=== PATIENT | male | born 1955 | race Caucasian/White ===

== ENCOUNTER 2016-10-12 11:50 | Inpatient (IN) | payer BC, MEDICARE ==
[2016-10-12] MEDS ORDERED: SODIUM CHLORIDE 0.9% 1,000 ML IV STA (12:04)
[2016-10-12] MEDS ORDERED: ONDANSETRON 4 MG/2 ML VIAL IVP STA (12:04)
[2016-10-12] MEDS ORDERED: HYDROmorphone 1 MG/ML 1 ML SYRINGE IVP STA ×2 (12:04→12:52)
--- NOTE | 2016-10-12 12:06 | ED ---
General Adult HPI - General Source: patient, RN notes reviewed Mode of arrival: wheelchair Limitations: no limitations <Harpreet Chatterjee - Last Filed: 10/12/16 14:30> <Jared David - Last Filed: 10/12/16 14:53> - General Chief complaint: Abdominal Pain Stated complaint: ACUTE ABDOMINAL PAIN, LL SIDE, NAUSEA Time Seen by Provider: 10/12/16 12:00 - History of Present Illness Initial comments: Patient is a 61-year-old male significant past medical history for diverticulitis, who presents emergency room today with chief complaint of increased left lower quadrant pain starting early this morning. Patient admits to symptoms of nausea vomiting. Denies any flatulence today.Please use medication as discussed. Please follow-up with family doctor in the next 2 days of symptoms have not improved. Please return to emergency room if the symptoms increase or worsen or for any other concerns. Admits to symptoms remind him of a diverticulitis flare that he had in the past. He admits to diarrhea yesterday. Patient denies any other complaints or symptoms. Patient denies any recent fever, chills, shortness of breath, chest pain, back pain, numbness or tingling, dysuria or hematuria, constipation, headaches or visual changes, or any other complaints. (Harpreet Chatterjee) - Related Data Home Medications Medication Instructions Recorded Confirmed ALPRAZolam [Xanax] 1 mg PO TID PRN 02/29/16 10/12/16 Atenolol [Tenormin] 50 mg PO DAILY 02/29/16 10/12/16 HYDROcodone/APAP 10-325MG [[place] 1 tab PO TID PRN 02/29/16 10/12/16 10-325] Ibuprofen [Motrin] 200 - 400 mg PO Q6HR PRN 10/12/16 10/12/16 Allergies Allergy/AdvReac Type Severity Reaction Status Date / Time No Known Allergies Allergy Verified 10/12/16 12:59 Review of Systems ROS Other: All systems not noted in ROS Statement are negative. <Harpreet Chatterjee - Last Filed: 10/12/16 14:30> ROS Other: All systems not noted in ROS Statement are negative. <Jared David - Last Filed: 10/12/16 14:53> ROS Statement: Those systems with pertinent positive or pertinent negative responses have been documented in the HPI. Past Medical History Past Medical History: Hypertension Additional Past Medical History / Comment(s): chronic pain due to orthopedic problems, ddd History of Any Multi-Drug Resistant Organisms: None Reported Past Surgical History: Hernia Repair, Orthopedic Surgery Additional Past Surgical History / Comment(s): 3 right and two left shoulder surgeries Past Psychological History: No Psychological Hx Reported, Anxiety Smoking Status: Former smoker Past Alcohol Use History: Occasional Past Drug Use History: None Reported, Marijuana <Harpreet Chatterjee - Last Filed: 10/12/16 14:30> General Exam Limitations: no limitations <Harpreet Chatterjee - Last Filed: 10/12/16 14:30> <Jared David - Last Filed: 10/12/16 14:53> - General Exam Comments Initial Comments: General: The patient is awake and alert, moderate distress. Eye: Pupils are equal, round and reactive to light, extra-ocular movements are intact. No nystagmus. There is normal conjunctiva bilaterally. No signs of icterus. Ears, nose, mouth and throat: There are moist mucous membranes and no oral lesions. Neck: The neck is supple, there is no tenderness or JVD. Cardiovascular: There is a regular rate and rhythm. No murmur, rub or gallop is appreciated. Respiratory: Lungs are clear to auscultation, respirations are non-labored, breath sounds are equal. No wheezes, stridor, rales, or rhonchi. Gastrointestinal: Normal appearance. Normal bowel sounds. Abdomen soft on palpation. Patient does have increased tenderness both on the abdomen greatest in left lower quadrant. No rebound tenderness. No guarding. No CVA tenderness. Musculoskeletal: Normal ROM, no tenderness. Strength 5/5. Sensation intact. Pulses equal bilaterally 2+. Neurological: A&O x 3. CN II-XII intact, There are no obvious motor or sensory deficits. Coordination appears grossly intact. Speech is normal. Skin: Skin is warm and dry and no rashes or lesions are noted. Psychiatric: Cooperative, appropriate mood & affect, normal judgment. (Harpreet Chatterjee) Medical Decision Making - Lab Data Result diagrams: 10/12/16 12:15 10/12/16 12:15 <Harpreet Chatterjee - Last Filed: 10/12/16 14:30> - Lab Data Result diagrams: 10/12/16 12:15 10/12/16 12:15 <Jared David - Last Filed: 10/12/16 14:53> - Medical Decision Making Patient reexamined at this time still having discomfort. Patient's CT does show evidence for possible recently passed stone. Patient urinalysis shows large amount blood with 59 white cells. An back to Rocephin 2 g started here in emergency room. Patient's had multiplemedication with little relief. Vital stable. No fever. Patient will be admitted for observation. (Harpreet Chatterjee) Dr. Kebede was notified of the request for consultation from urology. Dr. David (Jared David) - Lab Data Lab Results 10/12/16 10/12/16 10/12/16 Range/Units 12:15 12:15 12:15 WBC 9.9 (3.8-10.6) k/uL RBC 5.86 (4.30-5.90) m/uL Hgb 17.9 H (13.0-17.5) gm/dL Hct 50.8 (39.0-53.0) % MCV 86.6 (80.0-100.0) fL MCH 30.5 (25.0-35.0) pg MCHC 35.2 (31.0-37.0) g/dL RDW 14.3 (11.5-15.5) % Plt Count 228 (150-450) k/uL Neutrophils % 80 % Lymphocytes % 13 % Monocytes % 4 % Eosinophils % 0 % Basophils % 1 % Neutrophils # 7.9 H (1.3-7.7) k/uL Lymphocytes # 1.3 (1.0-4.8) k/uL Monocytes # 0.4 (0-1.0) k/uL Eosinophils # 0.0 (0-0.7) k/uL Basophils # 0.1 (0-0.2) k/uL Sodium 146 H (137-145) mmol/L Potassium 4.2 (3.5-5.1) mmol/L Chloride 112 H (98-107) mmol/L Carbon Dioxide 17 L (22-30) mmol/L Anion Gap 17 mmol/L BUN 15 (9-20) mg/dL Creatinine 1.00 (0.66-1.25) mg/dL Est GFR (MDRD) Af Amer >60 (>60 ml/min/1.73 sqM) Est GFR (MDRD) Non-Af >60 (>60 ml/min/1.73 sqM) Glucose 111 H (74-99) mg/dL Plasma Lactic Acid Alberto 5.3 H* (0.7-2.0) mmol/L Calcium 9.5 (8.4-10.2) mg/dL Total Bilirubin 0.5 (0.2-1.3) mg/dL AST 24 (17-59) U/L ALT 51 (21-72) U/L Alkaline Phosphatase 78 (38-126) U/L Total Protein 7.0 (6.3-8.2) g/dL Albumin 4.2 (3.5-5.0) g/dL Amylase 53 (30-110) U/L Lipase 44 (23-300) U/L Urine Color Urine Appearance (Clear) Urine pH (5.0-8.0) Ur Specific Kimball (1.001-1.035) Urine Protein (Negative) Urine Glucose (UA) (Negative) Urine Ketones (Negative) Urine Blood (Negative) Urine Nitrate (Negative) Urine Bilirubin (Negative) Urine Urobilinogen (<2.0) mg/dL Ur Leukocyte Esterase (Negative) Urine RBC (0-5) /hpf Urine WBC (0-5) /hpf Urine Mucus (None) /hpf 10/12/16 Range/Units 13:12 WBC (3.8-10.6) k/uL RBC (4.30-5.90) m/uL Hgb (13.0-17.5) gm/dL Hct (39.0-53.0) % MCV (80.0-100.0) fL MCH (25.0-35.0) pg MCHC (31.0-37.0) g/dL RDW (11.5-15.5) % Plt Count (150-450) k/uL Neutrophils % % Lymphocytes % % Monocytes % % Eosinophils % % Basophils % % Neutrophils # (1.3-7.7) k/uL Lymphocytes # (1.0-4.8) k/uL Monocytes # (0-1.0) k/uL Eosinophils # (0-0.7) k/uL Basophils # (0-0.2) k/uL Sodium (137-145) mmol/L Potassium (3.5-5.1) mmol/L Chloride (98-107) mmol/L Carbon Dioxide (22-30) mmol/L Anion Gap mmol/L BUN (9-20) mg/dL Creatinine (0.66-1.25) mg/dL Est GFR (MDRD) Af Amer (>60 ml/min/1.73 sqM) Est GFR (MDRD) Non-Af (>60 ml/min/1.73 sqM) Glucose (74-99) mg/dL Plasma Lactic Acid Alberto (0.7-2.0) mmol/L Calcium (8.4-10.2) mg/dL Total Bilirubin (0.2-1.3) mg/dL AST (17-59) U/L ALT (21-72) U/L Alkaline Phosphatase (38-126) U/L Total Protein (6.3-8.2) g/dL Albumin (3.5-5.0) g/dL Amylase (30-110) U/L Lipase (23-300) U/L Urine Color Dark Brown Urine Appearance Turbid (Clear) Urine pH 5.5 (5.0-8.0) Ur Specific Kimball 1.016 (1.001-1.035) Urine Protein 2+ H (Negative) Urine Glucose (UA) Negative (Negative) Urine Ketones Trace H (Negative) Urine Blood Moderate H (Negative) Urine Nitrate Negative (Negative) Urine Bilirubin Negative (Negative) Urine Urobilinogen <2.0 (<2.0) mg/dL Ur Leukocyte Esterase Small H (Negative) Urine RBC >182 H (0-5) /hpf Urine WBC 59 H (0-5) /hpf Urine Mucus Few H (None) /hpf Disposition Time of Disposition: 14:31 <Harpreet Chatterjee - Last Filed: 10/12/16 14:30> <Jared David - Last Filed: 10/12/16 14:53> Clinical Impression: Renal colic, UTI (urinary tract infection), Hematuria Disposition: ADMITTED IP TO THIS [facility] Condition: Stable Referrals: Delonte Catherine DO [Primary Care Provider] - 1-2 days
[2016-10-12] MEDS: SODIUM CHLORIDE 0.9% 1,000 ML IV STA ×2 (12:19→20:19)
--- NOTE | 2016-10-12 12:41 | XR ---
EXAMINATION TYPE: XR KUB DATE OF EXAM: 10/12/2016 12:39 PM COMPARISON: NONE HISTORY: Pain TECHNIQUE: Single supine KUB image of the abdomen is obtained FINDINGS: Small bowel demonstrates no evidence for dilatation or air fluid levels. Gas and fecal material is seen in non-distended colon. No convincing evidence for pneumoperitoneum. No unusual calcifications. The lung bases are clear. The osseous structures are intact. IMPRESSION: 1. Overall nonobstructive bowel gas pattern.
[2016-10-12 12:43] LABS: Basophils # (A) 0.1 k/uL (0-0.2); Basophils % (A) 1 %; CH 31.3; CHCM 36.3; Eosinophils % (A) 0 %; HCT 50.8 % (39.0-53.0); HGB 17.9 gm/dL (13.0-17.5); Luc # (Auto) 0.22; Luc % (Auto) 2; Lymphocytes # (A) 1.3 k/uL (1.0-4.8); Lymphocytes % (A) 13 %; MCH 30.5 pg (25.0-35.0); MCHC 35.2 g/dL (31.0-37.0); MCV 86.6 fL (80.0-100.0); Mean Platelet Volume 7.4; Monocytes # (A) 0.4 k/uL (0-1.0); Monocytes % (A) 4 %; Neutrophils # (A) 7.9 k/uL (1.3-7.7); Neutrophils % (A) 80 %; RBC 5.86 m/uL (4.30-5.90); RDW 14.3 % (11.5-15.5); WBC 9.9 k/uL (3.8-10.6); WBC (Perox) 9.23
[2016-10-12 12:48] LABS: ALT 51 U/L (21-72); AST 24 U/L (17-59); Alkaline Phosphatase 78 U/L (38-126); Amylase 53 U/L (30-110); Anion Gap 17 mmol/L; Blood Urea Nitrogen 15 mg/dL (9-20); Calcium 9.5 mg/dL (8.4-10.2); Carbon Dioxide 17 mmol/L (22-30); Chloride 112 mmol/L (98-107); Glucose 111 mg/dL (74-99); Non-African American GFR(MDRD) >60 (>60 ml/min/1.73 sqM); Potassium 4.2 mmol/L (3.5-5.1); Sodium 146 mmol/L (137-145); Total Bilirubin 0.5 mg/dL (0.2-1.3)
[2016-10-12 13:28] LABS: Appearance,Urine Turbid (Clear); Bilirubin,Urine Negative (Negative); Glucose,Urine (UA) Negative (Negative); Ketones,Urine Trace (Negative); Leukocyte Esterase,Urine Small (Negative); Mucus,Urine Few /hpf; Nitrite,Urine Negative (Negative); PH, Urine 5.5 (5.0-8.0); Particle Count 77724; Protein,Urine 2+ (Negative); RBC,Urine >182 /hpf (0-5); Specific Gravity,Urine 1.016 (1.001-1.035); UA Billing (MACRO vs. MICRO) MICRO; Urobilinogen,Urine <2.0 mg/dL (<2.0); WBC,Urine 59 /hpf (0-5)
[2016-10-12] MEDS ORDERED: cefTRIAXone 2,000 MG in SODIUM CHLORIDE 0.9% 100 ML IVPB STA (13:31)
--- NOTE | 2016-10-12 13:48 | CT ---
EXAMINATION TYPE: CT abdomen pelvis wo con DATE OF EXAM: 10/12/2016 1:33 PM COMPARISON: NONE INDICATION: Lt sided pain DLP: 1033.5 mGycm, Automated exposure control for dose reduction was used. CONTRAST: None Study performed without Oral Contrast TECHNIQUE: Axial images were obtained from above the diaphragm to the pubic rami in the axial plane a t 5 mm thick sections. Reconstructed images are reviewed on the computer in the coronal plane. FINDINGS: Limited CT sections are obtained the lung bases. The lung bases are clear. CT ABDOMEN: Liver: There are scattered hypodensities within the liver compatible with hepatic cyst. Its superior medial right lobe liver this measures 1.5 cm and 18 Hounsfield units. Within the more lateral upper r ight lobe liver this measures 0.9 cm 19 Hounsfield units. It may be a cyst within the medial right lo be liver midportion as well as probable cyst adjacent to the gallbladder bed fossa posterior right lo be liver and in the subcortical region, right lower lobe. This right lower lobe cyst would measure 2. 1 cm and 9 Hounsfield units. Subcutaneous nodule is at the anterolateral right subcutaneous tissue me asuring 1.3 cm in depth. Series 3 image 29 Spleen: Normal Pancreas: Normal Adrenal glands: The adrenal glands are normal. Gallbladder: Normal Kidneys: No masses are evident. No hydronephrosis is present. No cysts are present. No renal stone s are identified. There is mild left hydroureter and minimal prominence of the left renal collecting system. A recent passage of a stone could have this appearance. No discrete left renal or ureteral st ones are evident at this time. Aorta: Vascular calcification is within the aorta. Inferior vena cava: Normal. CT PELVIS: Loops of bowel within the abdomen and pelvis are normal. Appendix: Normal as visualized. Urinary bladder: Decompressed limiting evaluation. No suspicious abnormality is identified. Genitourinary structures: Prostate is slightly prominent Osseous structures: No suspicious lytic or sclerotic lesions. IMPRESSIONS: 1. Slight prominence of the left renal collecting system and left ureter. No discrete renal or urete ral stone is evident. Recent passage of a ureteral stone could have this appearance. 2. Hepatic cysts.
[2016-10-12] MEDS ORDERED: KETOROLAC 30 MG/ML 1 ML VIAL IVP STA (14:10)
[2016-10-12] MEDS ORDERED: NALOXONE 0.4 MG/ML 1 ML VIAL IV PRN (14:35)
[2016-10-12] MEDS ORDERED: ACETAMINOPHEN TAB 325 MG TAB PO PRN (14:35)
[2016-10-12] MEDS ORDERED: ONDANSETRON 4 MG/2 ML VIAL IVP PRN (14:35)
[2016-10-12] MEDS ORDERED: SODIUM CHLORIDE 0.9% 1,000 ML IV ONE (14:35)
[2016-10-12] MEDS: HYDROmorphone 1 MG/ML 1 ML SYRINGE IV PRN ×3 (17:31→23:38)
[2016-10-12] MEDS: KETOROLAC 30 MG/ML 1 ML VIAL IVP PRN ×2 (17:31→23:41)
[2016-10-13] MEDS: ALPRAZolam 0.5 MG TAB PO PRN ×2 (01:38→22:24)
[2016-10-13] MEDS: KETOROLAC 30 MG/ML 1 ML VIAL IVP PRN ×3 (06:56→22:20)
[2016-10-13] MEDS: HYDROmorphone 1 MG/ML 1 ML SYRINGE IV PRN ×4 (06:56→19:35)
[2016-10-13 09:18] LABS: ALT 32 U/L (21-72); AST 16 U/L (17-59); Alkaline Phosphatase 55 U/L (38-126); Anion Gap 6 mmol/L; Blood Urea Nitrogen 17 mg/dL (9-20); Calcium 7.8 mg/dL (8.4-10.2); Carbon Dioxide 24 mmol/L (22-30); Chloride 111 mmol/L (98-107); Glucose 100 mg/dL (74-99); Non-African American GFR(MDRD) >60 (>60 ml/min/1.73 sqM); Potassium 3.8 mmol/L (3.5-5.1); Sodium 141 mmol/L (137-145); Total Bilirubin 0.9 mg/dL (0.2-1.3); Total Protein 5.4 g/dL (6.3-8.2)
[2016-10-13 09:19] LABS: Basophils % (A) 0 %; CH 31.1; CHCM 34.6; Eosinophils % (A) 0 %; HCT 42.2 % (39.0-53.0); HDW 2.84; Luc # (Auto) 0.16; Luc % (Auto) 2; Lymphocytes # (A) 1.2 k/uL (1.0-4.8); Lymphocytes % (A) 14 %; MCH 29.8 pg (25.0-35.0); MCHC 33.1 g/dL (31.0-37.0); MCV 90.3 fL (80.0-100.0); Mean Platelet Volume 6.8; Monocytes # (A) 0.7 k/uL (0-1.0); Monocytes % (A) 8 %; Neutrophils # (A) 6.8 k/uL (1.3-7.7); Neutrophils % (A) 76 %; RBC 4.67 m/uL (4.30-5.90); RDW 14.3 % (11.5-15.5); WBC 8.9 k/uL (3.8-10.6); WBC (Perox) 9.41
[2016-10-13 09:20] LABS: HGB 13.9 gm/dL (13.0-17.5)
--- NOTE | 2016-10-13 10:03 | P.GSCN ---
History of Present Illness History of present illness: This 61 yo gentleman came to the hospital with abdominal, llq pain. He was found to have infected looking urine and grossly bloody urine. Act scan showed a mildly dilated system. He was slightly acidotic upon admission. He was brought into the hospital, cultured, given IV antibiotics IV fluids and pain medicine. This pain began abruptly yesterday. He had something like this several years ago. He has had no real voiding problems but does have some pain down in the perineal region. There is no radiation of the pain into the flank. His white blood cell count is down today. He has less acidotic today. His urine has cleared. There is no history kidney stones, urinary infections. He is not had major constipation or diarrhea as of late. Review of Systems - Constitutional Reports chills - Gastrointestinal Reports abdominal pain - Genitourinary Reports as per HPI Past Medical History Past Medical History: Hypertension, Osteoarthritis (OA) Additional Past Medical History / Comment(s): chronic pain due to orthopedic problems, ddd, BULGING DISC,BENIGN COLON POLYP, COLITS WHEN YOUNGER, USED TO TAKE MEDS FOR CHOLESTEROL-NONE NOW."OCC HEARTBURN-TAKES TUMS" History of Any Multi-Drug Resistant Organisms: None Reported Past Surgical History: Hernia Repair, Orthopedic Surgery Additional Past Surgical History / Comment(s): 3 right and 3left shoulder surgeries. EGD/COLONOSCOPY, 3 SX LT ANKLE-PLATE AND SCREW, 2ND SX TO REMOVED HEARD WEAR, 3RD SX FOR NEUROMA. HEMORRHOIDS, FISTUAL REPAIR Past Anesthesia/Blood Transfusion Reactions: No Reported Reaction Past Psychological History: Anxiety Additional Psychological History / Comment(s): PT LIVES WITH HIS IN [facility]- HAS 2 INDOOR CATS. PT IS ON DISABLITY. USED TO WORK AT [employer].. NO SERVICED. NO OUTSIDE SERVICES. NO HOSPTIAL EQUIPMENT AT HOME. Smoking Status: Former smoker Past Alcohol Use History: Rare Additional Past Alcohol Use History / Comment(s): STARTED SMOKING 1972,QUIT 1997 , WAS SMOKING 1 PPD Past Drug Use History: Marijuana Additional Drug Use History / Comment(s): PAST MARIJUANA USE-NONE IN PAST 10 YEARS. - Past Family History Father Family Medical History: No Reported History Mother History Unknown: Yes Medications and Allergies Home Medications Medication Instructions Recorded Confirmed Type ALPRAZolam [Xanax] 1 mg PO TID PRN 02/29/16 10/12/16 History Atenolol [Tenormin] 50 mg PO DAILY 02/29/16 10/12/16 History HYDROcodone/APAP 10-325MG [[place] 1 tab PO TID PRN 02/29/16 10/12/16 History 10-325] Ibuprofen [Motrin] 200 - 400 mg PO Q6HR PRN 10/12/16 10/12/16 History Allergies Allergy/AdvReac Type Severity Reaction Status Date / Time No Known Allergies Allergy Verified 10/12/16 12:59 Surgical - Exam Vital Signs Temp Pulse Resp BP Pulse Ox 98 F 100 20 160/96 98 10/12/16 11:55 10/12/16 11:55 10/12/16 11:55 10/12/16 11:55 10/12/16 11:55 - General well developed, well nourished, moderate distress - Eyes PERRL - ENT no hearing loss - Neck no masses, trachea midline - Respiratory normal expansion, normal respiratory effort - Cardiovascular Rhythm: regular - Abdomen Abdomen: soft, non tender - Genitourinary The prostate is 20-30 g soft and benign. There is no significant inflammation or tenderness. normal penis with no external lesions, testicles present - Integumentary no rash, no growths - Neurologic normal coordination, normal sensation - Musculoskeletal normal gait, normal posture - Psychiatric oriented to time, oriented to person, oriented to place, speech is normal, memory intact Results - Labs 10/13/16 08:32 10/13/16 08:32 Abnormal Lab Results - Last 24 Hours (Table) 10/12/16 Range/Units 15:45 Plasma Lactic Acid Alberto 2.4 H* (0.7-2.0) mmol/L Assessment and Plan Plan: Impression: Left lower quadrant pain. Gross hematuria. Abnormal urinalysis consistent with urine infection. Abnormal computed tomography scan consistent with inflammation and/or recent stone passage. Chronic disability due to orthopedic issues. Recommendations: I'm not totally certain as to the exact cause of this patient' s discomfort. Obviously the possibilities include diverticulitis, prostatitis, stone passage, pyelonephritis. The fact that he is still having pain today make stone passage less probable as there are no other stones on x-ray. He does not give any historical signs of colovesical fistula which is always a concern. The lack of urinary symptoms other than the blood go against prostatitis however it indeed could be the cause. At present I do not think any surgical intervention is required. I agree with the IV fluids, IV antibiotics and pending cultures. From a urologic standpoint he can eat.
[2016-10-13] MEDS: ATENOLOL 50 MG TAB PO SCH (16:29)
[2016-10-13] MEDS: SODIUM CHLORIDE 0.9% 1,000 ML IV SCH (16:30)
--- NOTE | 2016-10-13 17:02 | HP ---
DATE OF ADMISSION: 10/12/2016 Patient is a 61-year-old who came in with complaints of upper abdominal pain in the left lower quadrant in the left flank area, radiating to the anterior groin area and patient urine looked dark and patient did have significant hematuria, although no kidney stone was appreciated on the CT of the abdomen. Patient was evaluated by Dr. Kj Overton. The patient continues to have this pain although the CT was read as post renal stone changes. The patient does not have any diverticulitis either. Patient denied any fever, chills and patient was given IV antibiotics in the ER although patient does not have any fever. Patient's pain is cramping sensation, mostly 10/10 in severity. Patient is still complaining of that pain. The patient was complaining of some discomfort in the genital area without any dysuria. No leukocytosis was appreciated. REVIEW OF SYSTEMS: CONSTITUTIONAL: No fever, no malaise, no fatigue. HEENT: No recent visual problems or hearing problems. Denied any sore throat. CARDIOVASCULAR: No chest pain, orthopnea, PND, no palpitations, no syncope. PULMONARY: No shortness of breath, no cough, no hemoptysis. GASTROINTESTINAL: as described in HPI. NEUROLOGICAL: No headaches, no weakness, no numbness. HEMATOLOGICAL: Denies any bleeding or petechiae. GENITOURINARY: as described in HPI. MUSCULOSKELETAL/RHEUMATOLOGICAL: Denies any joint pain, swelling, or any muscle pain. ENDOCRINE: Denies any polyuria or polydipsia. The rest of the 14 point review of systems is negative. Past Medical history significant for hypertension, osteoarthritis, chronic pain and gastroesophageal reflux disease, hernia repair, orthopedic surgery in the past, EGDs in the past. SOCIAL HISTORY: A former smoker, quit smoking in 1997. Denied any alcohol abuse. Occasional use of marijuana. FAMILY HISTORY: None available at this point of time. Home medications include: 1. Alprazolam. 2. Atenolol. 3. Hydrocodone acetaminophen. 4. Ibuprofen. ALLERGIES: No known drug allergies. PHYSICAL EXAMINATION: Temperature 97.0, pulse 79, respiratory rate of 16, blood pressure 115/56, saturating at 96% on room air. GENERAL: The patient is alert and oriented x3, not in any acute distress. Well developed, well nourished. HEENT: Pupils are round and equally reacting to light. EOMI. No scleral icterus. No conjunctival pallor. Normocephalic, atraumatic. No pharyngeal erythema. No thyromegaly. CARDIOVASCULAR: S1 and S2 present. No murmurs, rubs, or gallops. PULMONARY: Chest is clear to auscultation, no wheezing or crackles. ABDOMEN: Soft, nontender, nondistended, normoactive bowel sounds. No palpable organomegaly. MUSCULOSKELETAL: No joint swelling or deformity. EXTREMITIES: No cyanosis, clubbing, or pedal edema. NEUROLOGICAL: Gross neurological examination did not reveal any focal deficits. SKIN: No rashes. LABORATORY DATA: CBC, CMP, essentially within normal limits. Urine is positive for 2+ protein trace ketones, moderate blood, small leukocyte esterase, greater than ( ) RBC, WBC 59. ASSESSMENT AND PLAN: 1. Left lower quadrant abdominal flank pain, although symptoms are consistent with nephrolithiasis and passage of kidney stone, although renal stone is not evident on the CT. 2. Elevated lactic acid without any other signs or symptoms of infection. Patient is on IV fluids at this point of time. I will empirically treat for urinary tract infection. Apart from elevated lactic acid and some WBC which can be secondary to nephrolithiasis, there is no clear-cut evidence of any urinary tract infection, but I cannot completely rule out urinary tract infection, either, because of cystitis or prostatitis because of which I will go ahead and continue the antibiotics at this point of time. 3. Hypertension without any antihypertensives, the patient's blood pressure and heart rate are fine, will hold off any atenolol at this time. 4. Gastroesophageal reflux disease.
[2016-10-14] MEDS: SODIUM CHLORIDE 0.9% 1,000 ML IV SCH ×3 (02:23→14:22)
[2016-10-14] MEDS: HYDROmorphone 1 MG/ML 1 ML SYRINGE IV PRN ×2 (04:31→09:15)
[2016-10-14] MEDS: KETOROLAC 30 MG/ML 1 ML VIAL IVP PRN (05:28)
[2016-10-14] MEDS: ATENOLOL 50 MG TAB PO SCH (07:37)
[2016-10-14 07:44] VITALS: BP 152/91; PULSE 71; RESP 16; TEMP 97.7
[2016-10-14 08:04] LABS: CH 31.1; CHCM 35.4; HCT 44.7 % (39.0-53.0); HGB 15.5 gm/dL (13.0-17.5); MCH 30.7 pg (25.0-35.0); MCHC 34.7 g/dL (31.0-37.0); MCV 88.3 fL (80.0-100.0); Mean Platelet Volume 7.3; RBC 5.06 m/uL (4.30-5.90); RDW 13.9 % (11.5-15.5); WBC 7.2 k/uL (3.8-10.6)
[2016-10-14 08:23] LABS: Anion Gap 10 mmol/L; Blood Urea Nitrogen 9 mg/dL (9-20); Calcium 8.4 mg/dL (8.4-10.2); Carbon Dioxide 23 mmol/L (22-30); Chloride 108 mmol/L (98-107); Glucose 102 mg/dL (74-99); Non-African American GFR(MDRD) >60 (>60 ml/min/1.73 sqM); Potassium 3.9 mmol/L (3.5-5.1); Sodium 141 mmol/L (137-145)
--- NOTE | 2016-10-14 09:47 | P.PN ---
Subjective The patient is in the hospital with abdominal pain, gross hematuria and blood work worrisome of an infectious process. His urine culture was negative. He is feeling somewhat better. Unfortunately the diagnosis still is not clear- cut. The 3 main possibilities including prostatitis, stone passage, diverticulitis all existed. These feeling better from urologic standpoint he can go home. I would continue on antibiotics with the possibility it was a prostatitis or diverticulitis. I will see him in the office in follow-up. Objective - Vital Signs Vital signs: Vital Signs Temp 97.7 F 10/14/16 07:00 Pulse 71 10/14/16 07:00 Resp 16 10/14/16 07:00 BP 152/91 10/14/16 07:00 Pulse Ox 96 10/14/16 07:00 Intake & Output 10/13/16 10/14/16 10/14/16 18:59 06:59 18:59 Intake Total 1375 Output Total 600 1075 Balance -600 300 Intake: Intake, IV Titration 1375 Amount Sodium Chloride 0.9% 1, 1375 000 ml @ 125 mls/hr IV . [facility] Rx#:[id number] Output: Urine 600 1075 Other: Voiding Method Urinal # Voids 3 1 - Labs CBC & Chem 7: 10/14/16 07:41 10/14/16 07:41 Labs: Abnormal Lab Results - Last 24 Hours (Table) 10/14/16 Range/Units 07:41 Chloride 108 H (98-107) mmol/L Glucose 102 H (74-99) mg/dL
--- NOTE | 2016-10-14 17:30 | DS ---
DATE OF ADMISSION: 10/12/2016 DATE OF DISCHARGE: 10/14/2016 Patient is admitted for left-sided flank pain and appeared to be renal colic secondary to renal ( ). CT of the abdomen did not show any renal calculi although it do show changes that are consistent with passed stone. Patient has improved symptoms. Patient had hematuria yesterday, although we cannot completely rule out prostatitis because of which I will discharge him on a week of antibiotics which is Cipro and patient bacterial prostatitis and patient will follow with Urology for further management of that. I do not believe patient has colitis. Patient symptoms improved. Patient is being discharged in stable medical condition to home. Patient was seen and examined on the day of discharge. Vitals are stable. PHYSICAL EXAMINATION: GENERAL: The patient is alert and oriented x3, not in any acute distress. Well developed, well nourished. HEENT: Pupils are round and equally reacting to light. EOMI. No scleral icterus. No conjunctival pallor. Normocephalic, atraumatic. No pharyngeal erythema. No thyromegaly. CARDIOVASCULAR: S1 and S2 present. No murmurs, rubs, or gallops. PULMONARY: Chest is clear to auscultation, no wheezing or crackles. ABDOMEN: Soft, nontender, nondistended, normoactive bowel sounds. No palpable organomegaly. MUSCULOSKELETAL: No joint swelling or deformity. EXTREMITIES: No cyanosis, clubbing, or pedal edema. NEUROLOGICAL: Gross neurological examination did not reveal any focal deficits. SKIN: No rashes. ASSESSMENT AND PLAN: 1. Left lower quadrant abdominal pain secondary to probably nephrolithiasis and bacterial prostatitis cannot be ruled out. 2. Elevated lactic acid due to assessment #1 improved with IV fluids. 3. Hypertension. 4. Gastroesophageal reflux disease. Please refer to my depart summary for further list of discharge medication. Patient will follow with Dr. Delonte Catherine in 3 to 7 days; Dr. Kj Overton in 2 weeks. Activity as tolerated. Cardiac diet. Spent greater than 35 minutes in total discharge process.
== END 2016-10-14 14:28 | disposition home or self-care (01) | DRG 728 ==
LOC: EC 11:50 → 4MS4W 15:43
PROVIDERS: ADMIT Hospitalist; ATTEND Hospitalist
DX: N41.9 Inflammatory disease of prostate, unspecified (principal); E87.2 Acidosis; N20.0 Calculus of kidney; I10 Essential (primary) hypertension; F12.90 Cannabis use, unspecified, uncomplicated; K21.9 Gastro-esophageal reflux disease without esophagitis; B96.89 Other specified bacterial agents as the cause of diseases classified elsewhere; K57.90 Diverticulosis of intestine, part unspecified, without perforation or abscess without bleeding; R31.9 Hematuria, unspecified; M19.90 Unspecified osteoarthritis, unspecified site; G89.29 Other chronic pain; F41.9 Anxiety disorder, unspecified; Z79.899 Other long term (current) drug therapy; Z87.891 Personal history of nicotine dependence
CPT/HCPCS: 36415; 74000; 74176; 80048; 80053; 81001; 82150; 83605; 83690; 85025; 85027; 87086; 96361; 96365; 96375; 96376; 99285

== ENCOUNTER 2018-07-13 06:50 | Inpatient (IN) | payer BC, MEDICARE ==
[2018-07-13] MEDS ORDERED: NITROGLYCERIN OINT 1 INCH/GM PACKET TOPICAL STA (07:24)
[2018-07-13] MEDS ORDERED: KETOROLAC 60 MG/2 ML VIAL IVP STA (07:28)
--- NOTE | 2018-07-13 07:32 | ED ---
General Adult HPI - General Chief complaint: Shortness of Breath Stated complaint: SOB/Chest Pain Time Seen by Provider: 07/13/18 07:00 Source: patient, RN notes reviewed Mode of arrival: wheelchair Limitations: no limitations - History of Present Illness Initial comments: This is a 63-year-old male who presents emergency Department with a past history significant for hypertension. Patient states about a month ago he was in [facility] for chest pain he states that he was not satisfied with what they did but he eventually went home and his pain seemed to subside. Patient states about a week and a half ago the pain returned in the center of his chest he states it's worse with breathing he states it does not worsen throughout the day it stays pretty constant. Patient states he does exert himself shortness of breath does increase the pain tends to be about the same. Patient states the pain radiates a little bit to the right side of his chest and a little bit of back on occasion. Patient denies any abdominal pain. Patient denies any diaphoresis. Patient denies any palpitations. Patient denies any nausea or vomiting. Patient denies lightheadedness dizziness or near syncopal episode. Patient denies any swelling to the legs or calf tenderness. Patient denies any injury or trauma. Patient states they told him he had pleurisy at the other institution and he was sent home on Naprosyn. - Related Data Home Medications Medication Instructions Recorded Confirmed ALPRAZolam [Xanax] 1 mg PO TID PRN 02/29/16 10/12/16 Atenolol [Tenormin] 50 mg PO DAILY 02/29/16 10/12/16 HYDROcodone/APAP 10-325MG [[place] 1 tab PO TID PRN 02/29/16 10/12/16 10-325] Ibuprofen [Motrin] 200 - 400 mg PO Q6HR PRN 10/12/16 10/12/16 Previous Rx's Medication Instructions Recorded Ciprofloxacin HCl [Cipro] 500 mg PO Q12HR #14 tablet 10/14/16 Allergies Allergy/AdvReac Type Severity Reaction Status Date / Time No Known Allergies Allergy Verified 07/13/18 07:01 Review of Systems ROS Statement: Those systems with pertinent positive or pertinent negative responses have been documented in the HPI. ROS Other: All systems not noted in ROS Statement are negative. Past Medical History Past Medical History: GERD/Reflux, Hypertension, Osteoarthritis (OA) Additional Past Medical History / Comment(s): chronic pain due to orthopedic problems, ddd, BULGING DISC,BENIGN COLON POLYP, COLITS WHEN YOUNGER, USED TO TAKE MEDS FOR CHOLESTEROL-NONE NOW."OCC HEARTBURN-TAKES TUMS" History of Any Multi-Drug Resistant Organisms: None Reported Past Surgical History: Hernia Repair, Orthopedic Surgery Additional Past Surgical History / Comment(s): 3 right and 3left shoulder surgeries. EGD/COLONOSCOPY, 3 SX LT ANKLE-PLATE AND SCREW, 2ND SX TO REMOVED HEARD WEAR, 3RD SX FOR NEUROMA. HEMORRHOIDS, FISTUAL REPAIR Past Anesthesia/Blood Transfusion Reactions: No Reported Reaction Past Psychological History: Anxiety Smoking Status: Former smoker Past Alcohol Use History: Rare Past Drug Use History: Marijuana - Past Family History Father Family Medical History: No Reported History Mother History Unknown: Yes General Exam - General Exam Comments Initial Comments: GENERAL: Patient is well-developed and well-nourished. Patient is nontoxic and well- hydrated and is in mild distress. ENT: Neck is soft and supple. No significant lymphadenopathy is noted. Oropharynx is clear. Moist mucous membranes. Neck has full range of motion without eliciting any pain. EYES: The sclera were anicteric and conjunctiva were pink and moist. Extraocular movements were intact and pupils were equal round and reactive to light. Eyelids were unremarkable. PULMONARY: Unlabored respirations. Good breath sounds bilaterally. No audible rales rhonchi or wheezing was noted. CARDIOVASCULAR: There is a regular rate and rhythm without any murmurs gallops or rubs. Reproducible chest tenderness on the right side of the chest ABDOMEN: Soft and nontender with normal bowel sounds. No palpable organomegaly was noted. There is no palpable pulsatile mass. SKIN: Skin is clear with no lesions or rashes and otherwise unremarkable. NEUROLOGIC: Patient is alert and oriented x3. Cranial nerves II through XII are grossly intact. Motor and sensory are also intact. Normal speech, volume and content. Symmetrical smile. MUSCULOSKELETAL: Normal extremities with adequate strength and full range of motion. No lower extremity swelling or edema. No calf tenderness. LYMPHATICS: No significant lymphadenopathy is noted PSYCHIATRIC: Normal psychiatric evaluation. Limitations: no limitations Course Vital Signs 07/13/18 06:54 Temperature 98.6 F Pulse Rate 97 Respiratory 16 Rate Blood Pressure 105/72 O2 Sat by Pulse 94 L Oximetry Medical Decision Making - Medical Decision Making EKG shows normal sinus rhythm at 92 bpm MD interval is 168 QRS is 92 QT interval 350 QTC is 442 per patient's EKG shows some flattened T waves in V1 and V2 as well as 1 and aVL. There is a Q-wave in lead 3. I have no old EKG to compare to Chest x-ray shows no acute abnormality. D-dimer was elevated started CAT scan to rule out PE. Patient did not have a PE on the CAT scan but did have a significant pericardial effusion. Patient also had an area of atelectasis behind the heart on the left. I spoke with Dr. Champion agreed to admit the patient admitted the patient. I wrote admitting orders. - Lab Data Result diagrams: 07/13/18 07:17 07/13/18 07:17 Lab Results 07/13/18 07/13/18 07/13/18 Range/Units 07:17 07:17 07:17 WBC 9.9 (3.8-10.6) k/uL RBC 4.89 (4.30-5.90) m/uL Hgb 14.8 (13.0-17.5) gm/dL Hct 43.7 (39.0-53.0) % MCV 89.3 (80.0-100.0) fL MCH 30.3 (25.0-35.0) pg MCHC 33.9 (31.0-37.0) g/dL RDW 12.9 (11.5-15.5) % Plt Count 399 (150-450) k/uL Neutrophils % 79 % Lymphocytes % 12 % Monocytes % 7 % Eosinophils % 2 % Basophils % 0 % Neutrophils # 7.8 H (1.3-7.7) k/uL Lymphocytes # 1.2 (1.0-4.8) k/uL Monocytes # 0.7 (0-1.0) k/uL Eosinophils # 0.2 (0-0.7) k/uL Basophils # 0.0 (0-0.2) k/uL PT (9.0-12.0) sec INR (<1.2) APTT (22.0-30.0) sec D-Dimer (<0.60) mg/L FEU Sodium 138 (137-145) mmol/L Potassium 4.8 (3.5-5.1) mmol/L Chloride 105 (98-107) mmol/L Carbon Dioxide 23 (22-30) mmol/L Anion Gap 10 mmol/L BUN 14 (9-20) mg/dL Creatinine 0.79 (0.66-1.25) mg/dL Est GFR (CKD-EPI)AfAm >90 (>60 ml/min/1.73 sqM) Est GFR (CKD-EPI)NonAf >90 (>60 ml/min/1.73 sqM) Glucose 113 H (74-99) mg/dL Calcium 8.5 (8.4-10.2) mg/dL Magnesium 2.1 (1.6-2.3) mg/dL Total Bilirubin 0.7 (0.2-1.3) mg/dL AST 25 (17-59) U/L ALT 41 (21-72) U/L Alkaline Phosphatase 85 (38-126) U/L Total Creatine Kinase <20 L (55-170) U/L CK-MB (CK-2) <0.2 (0.0-2.4) ng/mL CK-MB (CK-2) Rel Index Troponin I <0.012 (0.000-0.034) ng/mL Total Protein 5.8 L (6.3-8.2) g/dL Albumin 2.9 L (3.5-5.0) g/dL 07/13/18 Range/Units 07:17 WBC (3.8-10.6) k/uL RBC (4.30-5.90) m/uL Hgb (13.0-17.5) gm/dL Hct (39.0-53.0) % MCV (80.0-100.0) fL MCH (25.0-35.0) pg MCHC (31.0-37.0) g/dL RDW (11.5-15.5) % Plt Count (150-450) k/uL Neutrophils % % Lymphocytes % % Monocytes % % Eosinophils % % Basophils % % Neutrophils # (1.3-7.7) k/uL Lymphocytes # (1.0-4.8) k/uL Monocytes # (0-1.0) k/uL Eosinophils # (0-0.7) k/uL Basophils # (0-0.2) k/uL PT 11.4 (9.0-12.0) sec INR 1.2 H (<1.2) APTT 23.8 (22.0-30.0) sec D-Dimer 9.76 H (<0.60) mg/L FEU Sodium (137-145) mmol/L Potassium (3.5-5.1) mmol/L Chloride (98-107) mmol/L Carbon Dioxide (22-30) mmol/L Anion Gap mmol/L BUN (9-20) mg/dL Creatinine (0.66-1.25) mg/dL Est GFR (CKD-EPI)AfAm (>60 ml/min/1.73 sqM) Est GFR (CKD-EPI)NonAf (>60 ml/min/1.73 sqM) Glucose (74-99) mg/dL Calcium (8.4-10.2) mg/dL Magnesium (1.6-2.3) mg/dL Total Bilirubin (0.2-1.3) mg/dL AST (17-59) U/L ALT (21-72) U/L Alkaline Phosphatase (38-126) U/L Total Creatine Kinase (55-170) U/L CK-MB (CK-2) (0.0-2.4) ng/mL CK-MB (CK-2) Rel Index Troponin I (0.000-0.034) ng/mL Total Protein (6.3-8.2) g/dL Albumin (3.5-5.0) g/dL Critical Care Time Critical Care Time: Yes Total Critical Care Time: 35 Disposition Clinical Impression: Pericardial effusion, Dyspnea Disposition: ADMITTED IP TO THIS HOSP Referrals: Delonte Catherine DO [Primary Care Provider] - 1-2 days Time of Disposition: 09:59
[2018-07-13 07:53] LABS: Basophils % (A) 0 %; Eosinophils # (A) 0.2 k/uL (0-0.7); Eosinophils % (A) 2 %; HCT 43.7 % (39.0-53.0); HGB 14.8 gm/dL (13.0-17.5); Lymphocytes # (A) 1.2 k/uL (1.0-4.8); Lymphocytes % (A) 12 %; MCH 30.3 pg (25.0-35.0); MCHC 33.9 g/dL (31.0-37.0); MCV 89.3 fL (80.0-100.0); Mean Platelet Volume 6.9; Monocytes # (A) 0.7 k/uL (0-1.0); Monocytes % (A) 7 %; Neutrophils # (A) 7.8 k/uL (1.3-7.7); Neutrophils % (A) 79 %; Platelet Count 399 k/uL (150-450); RBC 4.89 m/uL (4.30-5.90); RDW 12.9 % (11.5-15.5); WBC 9.9 k/uL (3.8-10.6)
[2018-07-13 08:08] LABS: Albumin 2.9 g/dL (3.5-5.0); Anion Gap 10 mmol/L; Blood Urea Nitrogen 14 mg/dL (9-20); Calcium 8.5 mg/dL (8.4-10.2); Carbon Dioxide 23 mmol/L (22-30); Chloride 105 mmol/L (98-107); Glucose 113 mg/dL (74-99); Sodium 138 mmol/L (137-145); Total Bilirubin 0.7 mg/dL (0.2-1.3); Total Protein 5.8 g/dL (6.3-8.2)
[2018-07-13 08:15] LABS: Creatine Kinase <20 U/L (55-170)
[2018-07-13 08:20] LABS: INR 1.2 (<1.2); Partial Thromboplastin Time 23.8 sec (22.0-30.0); Prothrombin Time 11.4 sec (9.0-12.0)
[2018-07-13 08:21] LABS: ALT 41 U/L (21-72); AST 25 U/L (17-59); Alkaline Phosphatase 85 U/L (38-126); Magnesium 2.1 mg/dL (1.6-2.3); Potassium 4.8 mmol/L (3.5-5.1)
[2018-07-13 08:28] LABS: Creatine Kinase MB <0.2 ng/mL (0.0-2.4); Troponin I <0.012 ng/mL (0.000-0.034)
[2018-07-13 08:33] LABS: D-Dimer 9.76 mg/L FEU (<0.60)
[2018-07-13] MEDS ORDERED: HEPARIN SODIUM,PORCINE 10,000 UNIT/ML 1 ML VIAL IV ONE (08:33)
--- NOTE | 2018-07-13 09:05 | XR ---
EXAMINATION TYPE: XR chest 2V DATE OF EXAM: 07/13/2018 COMPARISON: 11/18/2013 HISTORY: Shortness of breath TECHNIQUE: Frontal and lateral views of the chest are obtained. FINDINGS: Scattered senescent parenchymal changes noted. Hyperinflation compatible with COPD. Left lower lobe infiltrate with small effusion noted. Correlate for pneumonia. Left upper lobe linear atelectasis. Heart size is stable. Mediastinal structures are stable and grossly unremarkable. No evidence for hilar prominence. Degenerative changes dorsal spine. IMPRESSION: 1. Left lower lobe infiltrate with small effusion noted. Correlate for pneumonia. Left upper lobe amy ear atelectasis.
[2018-07-13] MEDS: HEPARIN SOD,PORK IN 0.45% NACL 25,000 UNIT in 0.45% NACL 1 500ML.BAG IV SCH ×2 (09:09→22:37)
--- NOTE | 2018-07-13 09:16 | CT ---
EXAMINATION TYPE: CT chest angio for PE DATE OF EXAM: 07/13/2018 COMPARISON: None HISTORY: SOB, chest pain CT DLP: 436.5 mGycm CONTRAST: CT chest with contrast and 3D reconstruction with MIP imaging is performed with IV Contrast, patient injected with 100 mL of Isovue 370. Contrast-enhanced CT of the chest was performed through the course of the pulmonary arteries with yannick g and mediastinal window settings submitted. 3D reconstruction with MIP imaging was also performed. PULMONARY ARTERIES: The pulmonary arteries and their major tributaries are patent. I do not see kely dence for sizable filling defect to suggest pulmonary embolic process. LUNGS: Bilateral pleural effusion small in size left greater than right. There is basilar compressive atelectasis and/or infiltrate. Additional infiltrate or atelectasis left upper lobe. MEDIASTINUM: Thoracic aorta is of normal caliber,however, evaluation is limited given timing of the contrast bolus. If there is concern for thoracic aortic pathology consider HARRY. Correlate clinicall y . There is a pericardial effusion measuring 2.2 cm in greatest dimension. No evidence for mediastin al mass. No mediastinal lymph nodes greater than 1cm. HILAR STRUCTURES: No evidence for mass. No hilar lymph nodes greater than 1 cm. UPPER ABDOMEN: Nonspecific hepatic lesions noted. IMPRESSION: 1. No evidence for Pulmonary embolism at this time. 2. Pericardial effusion. 3. Basilar pleural effusions and atelectasis/infiltrate
[2018-07-13] MEDS ORDERED: ONDANSETRON 4 MG/2 ML VIAL IVP STA (09:32)
[2018-07-13] MEDS ORDERED: HYDROmorphone 1 MG/ML 1 ML SYRINGE IVP STA (09:32)
[2018-07-13] MEDS ORDERED: SODIUM CHLORIDE 0.9% 1,000 ML IV ONE (10:02)
[2018-07-13] MEDS: KETOROLAC 30 MG/ML 1 ML VIAL IVP SCH ×3 (13:21→23:31)
[2018-07-13 14:00] VITALS: BMI 31.8
[2018-07-13] MEDS ORDERED: HYDROcodone/APAP 10-325MG 1 EACH TAB PO PRN (18:38)
[2018-07-13] MEDS: ALPRAZolam 1 MG TAB PO PRN (19:09)
[2018-07-13] MEDS: busPIRone HCl 5 MG TAB PO SCH (20:15)
[2018-07-13] MEDS: COLCHICINE 0.6 MG EACH PO SCH (20:15)
--- NOTE | 2018-07-13 21:37 | HP ---
HISTORY AND PHYSICAL DATE OF ADMISSION: 07/13/2018. PRESENTING COMPLAINT: Short of breath, chest pain. HISTORY OF PRESENTING COMPLAINT: This is a 63-year-old patient of Dr. Catherine who I saw recently at [facility]. Chronic stable medical conditions include hypertension, depression, chronic pain in the shoulders. The patient had presented there with what appeared to be pleuritic chest pain. The patient was seen by Cate Moore from Cardiology. A 2D echocardiogram was unremarkable. The patient's ESR was 1. CT angio was also negative. The patient was sent home on naproxen, to which patient really felt better for 2 weeks. He states the symptoms did not completely resolve, then for the last few days there has been increasing pain in the chest and he is more short of breath and is worse with deep breathing, affecting the anterior part of the chest. He presented again. The patient did have a chest CTA in the ER which was negative for PE. There was also pericardial effusion, 2.2 cm. There have been no fever or chills. The patient is admitted for the same. REVIEW OF SYSTEMS: CONSTITUTIONAL: Tired. HEENT: None. RESPIRATORY: As above. CARDIOVASCULAR: As above. GASTROINTESTINAL: None. GENITOURINARY: None. MUSCULOSKELETAL: Chronic pain in the shoulders. DERMATOLOGICAL: None. HEMATOLOGIC: None. LYMPHATICS: None. PSYCHIATRY: Depression, anxious. NEUROLOGICAL: None. PAST MEDICAL HISTORY: Hypertension, depression, chronic pain in the shoulders, GERD, occasional heartburn, herniated disk. PAST SURGICAL HISTORY: Hernia repair, 3 right and 3 left shoulder surgeries, surgery for neuroma, hemorrhoids, fistula repair. SOCIAL HISTORY: . Occasional alcohol. The patient smoked for 25 years, stopped in 1997, a pack a day. Occasional marijuana use. FAMILY HISTORY: Reviewed, not relevant to presentation. HOME MEDICATIONS: 1. BuSpar 7.5 p.o. b.i.d. 2. Aleve 220 mg p.o. daily p.r.n. 3. Tenormin 50 mg p.o. daily. 4. Xanax 1 mg p.o. t.i.d. p.r.n. ALLERGIES: None. PHYSICAL EXAMINATION: VITAL SIGNS: Vital signs on presentation, temp 98.6, pulse 97, respirations 16, blood pressure 105/72, pulse ox 94 percent on room air. GENERAL: Well built. BMI 31.9. Lying in bed. A bit anxious-appearing. EYES: Pupils equal. Conjunctivae normal. HEENT: External nose and ears normal. Oral cavity normal. NECK: JVD not raised. Mass not palpable. Respiratory effort normal. LUNGS: Slightly decreased breath sounds. CARDIOVASCULAR: 1st and 2nd sounds normal. No pericardial rub. No edema. ABDOMEN: Soft, nontender. Liver and spleen not palpable. LYMPHATIC: No lymph node palpable in the neck or axillae. PSYCHIATRY: Alert and oriented x3. Mood and affect normal. INVESTIGATIONS: White count 9.9, hemoglobin 14.8, potassium 4.8, BUN and creatinine normal. The patient's C-reactive protein is 173.2. EKG nonspecific findings. Chest x-ray film personally reviewed by me shows cardiomegaly. EKG was also personally reviewed by me. Chest CTA shows bilateral small pleural effusion, basilar compressive atelectasis, pericardial effusion 2.2 cm. ASSESSMENT: 1. Possibly acute pericarditis, likely viral with pericardial effusion, symptomatic. The patient has got no fever, no white count. 2. Obesity, BMI 31.9. 3. Gastroesophageal reflux disease. 4. Essential hypertension. 5. Chronic pain due to orthopedic problems. 6. Primary osteoarthritis. PLAN: Patient is started on scheduled Toradol IV. I ordered a heating pad. The patient will also resume his home medications. We will also start colchicine 0.6 mg twice a day. Consultation is made to Cardiology and Pulmonary. The patient wants to get IV Dilaudid. Did explain to him that Dilaudid is quite strong for condition like this and we will give IV Toradol around the clock including heating pad, and he can take and also Tylenol, but he wants IV Dilaudid. MMODL / IJN: [id number] /
[2018-07-13] MEDS ORDERED: DILTIAZEM DRIP BOLUS FROM BAG 1 MG SOLN IV ONE (22:47)
[2018-07-13] MEDS ORDERED: DILTIAZEM 50 MG in SODIUM CHLORIDE 0.9% 40 ML IV SCH (23:00)
[2018-07-13] MEDS: SODIUM CHLORIDE 0.9% 250 ML IV SCH (23:23)
[2018-07-14] MEDS: SODIUM CHLORIDE 0.9% 250 ML IV SCH ×3 (02:44→05:46)
[2018-07-14] MEDS ORDERED: DIGOXIN 250 MCG/ML 2 ML AMP IVP ONE (04:27)
[2018-07-14 04:58] LABS: Glucose,Whole Blood 106 mg/dL (75-99)
[2018-07-14] MEDS ORDERED: NOREPINEPHRINE 4 MG in SODIUM CHLORIDE 0.9% 250 ML IV SCH (05:00)
[2018-07-14] MEDS ORDERED: methylPREDNISolone SOD SUCCI 125 MG/2 ML VIAL IV STA (05:02)
--- NOTE | 2018-07-14 05:09 | XR ---
EXAMINATION TYPE: XR chest 1V DATE OF EXAM: 07/14/2018 COMPARISON: Yesterday HISTORY: Difficulty breathing. Pericardial effusion. TECHNIQUE: Single frontal view of the chest is obtained. FINDINGS: Heart appears enlarged. There is no heart failure. There is blunting of left costophrenic angle. There are chest leads. There is right shoulder prosthesis. IMPRESSION: There is infiltrate and pleural fluid at the left lung base probably not changed compare d to yesterday. There is clearing of left upper lobe atelectasis. No heart failure seen.
[2018-07-14] MEDS ORDERED: SODIUM CHLORIDE 0.9% 1,000 ML IV ONE (05:38)
[2018-07-14] MEDS: IBUPROFEN 600 MG TAB PO SCH ×3 (07:49→21:38)
--- NOTE | 2018-07-14 08:02 | CONS ---
CONSULTATION Mr. Collier is a 63-year-old gentleman who is seen for cardiac evaluation. Patient's electronic medical records as well as records from [facility] reviewed. This patient has a history of hypertension, depression, chronic pain in the shoulder. Patient recently presented about 1 month ago at [facility] with symptoms of pleuritic chest pain. His C-reactive protein was elevated, but ESR was only 1. CAT scan did not show any evidence of pleural or pericardial effusion. He was treated with pleurisy and discharged on naproxen. Patient felt better a couple of weeks and then patient again started having increasing pain in the chest and shortness of breath. It is worse with deep breathing. Patient came to the emergency room yesterday and his a D- dimer was elevated. CT scan showed about 2 cm pericardial effusion and so the patient was admitted on the telemetry unit. The patient subsequently in the evening developed atrial fibrillation with a moderately rapid ventricular response and ordered for the no node just start ibuprofen and Solu-Medrol and Solu-Medrol. Patient went into the atrial fibrillation. Patient was started on Cardizem drip. Subsequently, patient became hypotensive with the rate of blood pressure in the range of 70-75. In view of that, the Cardizem was discontinued and patient was transferred to the intensive care unit. I saw the patient in the intensive care unit. At present, patient is comfortable, he is having some discomfort, pleuritic chest pain, but is not in acute respiratory distress. PAST MEDICAL HISTORY: Includes hypertension, diabetes, history of shoulder surgeries, history of surgery for neuroma and hemorrhoids. Patient's home medications included Tenormin, Aleve, and BuSpar. PHYSICAL EXAMINATION: At present reveal a 63-year-old gentleman who at present is slightly diaphoretic. Blood pressure now is a 90/60, heart rate is 100 to 120. HEENT examination is negative. Neck is supple. Jugular venous pressure is difficult to assess. HEART: First and second heart sounds are heard. Heart tones are present. Lungs are clear to auscultation and percussion. Abdomen is negative. Liver is not enlarged. EXTREMITIES: Peripheral pulses are 2+. Patient's C-reactive protein is 137. IMPRESSION: 1. This patient has acute pleural pericarditis, most likely viral in etiology. 2. Atrial fibrillation with moderately rapid ventricular response/. 3. Hypotension, possibly partly precipitated by Cardizem. RECOMMENDATIONS: We will discontinue IV Cardizem. I will continue IV fluids at 250 mL/hour. Patient is started on colchicine as well as ibuprofen and the Solu-Medrol is 60 mg q.6 hourly. We will obtain a stat echo in 1.5 hour and start him on Levophed drip. If patient reports to be hypotensive without any significant improvement in next few hours. We will consider him for cardioversion and depending upon the echo findings. AMAIRANI / LINDAN: [id number] /
[2018-07-14] MEDS: SODIUM CHLORIDE 0.9% 1,000 ML IV SCH ×3 (08:03→17:48)
[2018-07-14 08:34] LABS: Basophils % (A) 0 %; Eosinophils # (A) 0.1 k/uL (0-0.7); Eosinophils % (A) 1 %; HCT 39.2 % (39.0-53.0); Lymphocytes # (A) 0.5 k/uL (1.0-4.8); Lymphocytes % (A) 5 %; MCHC 33.1 g/dL (31.0-37.0); MCV 90.5 fL (80.0-100.0); Mean Platelet Volume 6.7; Monocytes # (A) 0.2 k/uL (0-1.0); Monocytes % (A) 2 %; Neutrophils # (A) 9.6 k/uL (1.3-7.7); Neutrophils % (A) 92 %; Platelet Count 375 k/uL (150-450); RBC 4.33 m/uL (4.30-5.90); RDW 13.1 % (11.5-15.5); WBC 10.5 k/uL (3.8-10.6)
[2018-07-14] MEDS: COLCHICINE 0.6 MG EACH PO SCH ×2 (08:36→21:41)
[2018-07-14 08:38] LABS: INR 1.2 (<1.2); Partial Thromboplastin Time 27.5 sec (22.0-30.0); Prothrombin Time 11.6 sec (9.0-12.0)
[2018-07-14 08:52] LABS: Anion Gap 5 mmol/L; Blood Urea Nitrogen 16 mg/dL (9-20); Calcium 7.9 mg/dL (8.4-10.2); Carbon Dioxide 21 mmol/L (22-30); Chloride 111 mmol/L (98-107); Glucose 115 mg/dL (74-99); Magnesium 2.2 mg/dL (1.6-2.3); Phosphorus 2.9 mg/dL (2.5-4.5); Sodium 137 mmol/L (137-145)
[2018-07-14 09:19] LABS: Erythrocyte Sedimentation Rate 55 mm/hr (0-15)
--- NOTE | 2018-07-14 09:43 | P.PN ---
Subjective Progress Note Date: 07/14/18 This patient is admitted to the hospital with pleuritic chest pain and clinical and computed tomography scan evidence of pericarditis and pericardial effusion. Patient was in atrial fibrillation with a rapid ventricular response. He was started on IV Cardizem. Subsequently patient became hypotensive. Cardizem was discontinued and patient was given IV fluids. He also received a call seen and also steroids. He is feeling much better today. He still has some pain on deep breathing. Doesn't appear to be in acute dysphagia distress. His blood pressure is more stable. His converted to sinus rhythm. We'll continue current medical therapy Objective - Vital Signs Vital signs: Vital Signs Temp 98.6 F 07/14/18 05:50 Pulse 152 H 07/14/18 06:20 Resp 27 H 07/14/18 06:20 BP 107/88 07/14/18 06:20 Pulse Ox 95 07/14/18 06:20 Intake & Output 07/13/18 07/14/18 07/14/18 18:59 06:59 18:59 Intake Total 75 971.207 Output Total 700 Balance 75 271.207 Weight 106.594 kg Intake: IV 250 Sodium Chloride 0.9% 1, 250 000 ml @ 250 mls/hr IV . Q4H [facility] Rx#:[id number] Intake, IV Titration 75 721.207 Amount Heparin Sod,Pork in 0.45% 711.832 NaCl 25,000 unit In 0.45 % NaCl 1 500ml.bag @ 18 UNITS/KG/HR 38.37 mls/hr IV .Q13H2M [facility] Rx#: [id number] Norepinephrine 4 mg In 9.375 Sodium Chloride 0.9% 250 ml @ Titrate IV .Q0M [facility] Rx#:[id number] Sodium Chloride 0.9% 1, 75 000 ml @ 75 mls/hr IV . [id number] [facility] Rx#:[id number] Output: Urine 700 Other: # Voids 1 - Exam GENERAL EXAM: Patient is alert and oriented and doesn't appear to be in any acute distress HEENT: Normocephalic. Normal reaction of pupils, equal size, normal range of extraocular motion. No erythema or exudates in the throat. NECK: No masses, no nuchal rigidity. CHEST: No chest wall deformity. LUNGS: Equal air entry with no crackles or wheeze. HEART: S1 and S2 normal with no audible mumurs or gallops. Regular rhythm, femorals equal on both sides.. ABDOMEN: No hepatosplenomegaly, normal bowel sounds, no guarding or rigidity. SKIN: No rashes CENTRAL NERVOUS SYSTEM: No focal deficits. EXTREMITIES: No cyanosis, clubbing or edema. - Labs CBC & Chem 7: 07/14/18 08:05 07/14/18 08:05 Labs: Abnormal Lab Results - Last 24 Hours (Table) 07/13/18 07/13/18 07/14/18 Range/Units 07:17 07:17 02:12 Neutrophils # (1.3-7.7) k/uL Lymphocytes # (1.0-4.8) k/uL ESR 54 H (0-15) mm/hr INR (<1.2) APTT 38.7 H (22.0-30.0) sec Chloride (98-107) mmol/L Carbon Dioxide (22-30) mmol/L Glucose (74-99) mg/dL POC Glucose (mg/dL) (75-99) mg/dL Calcium (8.4-10.2) mg/dL C-Reactive Protein 173.2 H (<10.0) mg/L 07/14/18 07/14/18 07/14/18 Range/Units 04:55 08:05 08:05 Neutrophils # 9.6 H (1.3-7.7) k/uL Lymphocytes # 0.5 L (1.0-4.8) k/uL ESR 55 H (0-15) mm/hr INR (<1.2) APTT (22.0-30.0) sec Chloride 111 H (98-107) mmol/L Carbon Dioxide 21 L (22-30) mmol/L Glucose 115 H (74-99) mg/dL POC Glucose (mg/dL) 106 H (75-99) mg/dL Calcium 7.9 L (8.4-10.2) mg/dL C-Reactive Protein (<10.0) mg/L 07/14/18 Range/Units 08:05 Neutrophils # (1.3-7.7) k/uL Lymphocytes # (1.0-4.8) k/uL ESR (0-15) mm/hr INR 1.2 H (<1.2) APTT (22.0-30.0) sec Chloride (98-107) mmol/L Carbon Dioxide (22-30) mmol/L Glucose (74-99) mg/dL POC Glucose (mg/dL) (75-99) mg/dL Calcium (8.4-10.2) mg/dL C-Reactive Protein (<10.0) mg/L Assessment and Plan (1) Pericarditis Current Visit: Yes Status: Acute Code(s): I31.9 - DISEASE OF PERICARDIUM, UNSPECIFIED SNOMED Code(s): 6922844 (2) Pericardial effusion Current Visit: Yes Status: Acute Code(s): I31.3 - PERICARDIAL EFFUSION ( NONINFLAMMATORY) SNOMED Code(s): 978986756 Plan: Continue current medical therapy. May change to by mouth steroids, after 24 hours
[2018-07-14] MEDS: ATENOLOL 50 MG TAB PO SCH (10:00)
--- NOTE | 2018-07-14 10:08 | ECHOF ---
Referral Reason:Pericardial effusion MEASUREMENTS -------- HEIGHT: 180.3 cm WEIGHT: 106.1 kg BP: 107/88 RVIDd: 3.5 cm (< 3.3) IVSd: 1.5 cm (0.6 - 1.1) LVIDd: 4.4 cm (3.9 - 5.3) LVPWd: 1.5 cm (0.6 - 1.1) IVSs: 2.0 cm LVIDs: 3.0 cm LVPWs: 1.9 cm Ao Diam: 3.7 cm (2.0 - 3.7) AV Cusp: 2.8 cm (1.5 - 2.6) LA Diam: 3.8 cm (2.7 - 3.8) MV EXCURSION: 23.080 mm (> 18.000) MV EF SLOPE: 173 mm/s (70 - 150) EPSS: 1.4 cm MV E Malcom: 0.97 m/s MV DecT: 233 ms MV A Malcom: 0.54 m/s MV E/A Ratio: 1.78 RAP: 15.00 mmHg RVSP: 19.71 mmHg FINDINGS -------- Sinus rhythm. This was a technically difficult study with suboptimal views. The left ventricular size is normal. There is moderate concentric left ventricular hypertrophy. O verall left ventricular systolic function is low-normal with, an EF between 50 - 55 %. The right ventricle is mildly enlarged. The left atrial size is normal. The right atrium is normal in size. Lumason used The aortic valve is trileaflet and appears structurally normal. The mitral valve is normal. There is trace mitral regurgitation. Trace tricuspid regurgitation present. There is no evidence of pulmonary hypertension. The right ventricular systolic pressure, as measured by Doppler, is 19.71mmHg. There is no pulmonic regurgitation present. The aortic root size is normal. The inferior vena cava is mildly dilated. There is a trivial pericardial effusion present. CONCLUSIONS -------- 1. Sinus rhythm. 2. This was a technically difficult study with suboptimal views. 3. The left ventricular size is normal. 4. There is moderate concentric left ventricular hypertrophy. 5. Overall left ventricular systolic function is low-normal with, an EF between 50 - 55 %. 6. The right ventricle is mildly enlarged. 7. The left atrial size is normal. 8. Lumason used 9. The aortic valve is trileaflet and appears structurally normal. 10. There is trace mitral regurgitation. 11. Trace tricuspid regurgitation present. 12. There is no evidence of pulmonary hypertension. 13. There is no pulmonic regurgitation present. 14. The aortic root size is normal. 15. The inferior vena cava is mildly dilated. 16. There is a trivial pericardial effusion present. BATCH OR CONTINUOUS STILL OPERATOR: Aminah Quinteros RDCS
[2018-07-14] MEDS: busPIRone HCl 5 MG TAB PO SCH ×2 (11:17→21:39)
[2018-07-14] MEDS: methylPREDNISolone SOD SUCCI 125 MG/2 ML VIAL IV SCH ×3 (11:25→23:51)
[2018-07-14] MEDS: INSULIN ASPART 100 UNIT/ML 1 ML 10 ML VIAL SQ SCH ×3 (12:38→21:02)
[2018-07-14 13:00] LABS: Glucose,Whole Blood 179 mg/dL (75-99)
--- NOTE | 2018-07-14 13:20 | P.CNPUL ---
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 , patient has been fairly stable state of health until about a month ago started having intermittent episode of retrosternal chest pain denies any shortness of breath about 3 weeks ago had the upper respiratory type of infection, which eventually subsided on on its own, at that point patient presented into [facility] emergency department was diagnosed as pleurisy and eventually was discharged on the and states, in the last 1 week patient has a worsening of chest pain the pain gets worse on laying supine however propping up and leaning forward was helpful in terms of relieving the pain, patient was found to be hypotensive as well was admitted into the ICU a preliminary computed tomography scan performed at the time admission revealed significant pericardial effusion small bilateral pleural effusion some left subsegmental atelectasis and has been admitted into the ICU with cardiovascular evaluation, patient did have an echocardiogram earlier this morning a small pericardial effusion is seen radiographic studies including computed tomography scan of the chest has been reviewed small bilateral pleural effusions seen likely related to pericarditis, on specific questioning patient denies any seizure-like to a loss of consciousness), denies any cough or sputum production does have ongoing shortness of breath denies any bowel or bladder related problems, history of chronic joint pain as noted in dictated above Review of Systems All systems: negative Past Medical History Past Medical History: GERD/Reflux, Hypertension, Osteoarthritis (OA) Additional Past Medical History / Comment(s): chronic pain due to orthopedic problems, ddd, BULGING DISC,BENIGN COLON POLYP, COLITS WHEN YOUNGER, USED TO TAKE MEDS FOR CHOLESTEROL-NONE NOW."OCC HEARTBURN-TAKES TUMS" History of Any Multi-Drug Resistant Organisms: None Reported Past Surgical History: Hernia Repair, Orthopedic Surgery Additional Past Surgical History / Comment(s): 3 right and 3left shoulder surgeries. EGD/COLONOSCOPY, 3 SX LT ANKLE-PLATE AND SCREW, 2ND SX TO REMOVED HEARD WEAR, 3RD SX FOR NEUROMA. HEMORRHOIDS, FISTUAL REPAIR Past Anesthesia/Blood Transfusion Reactions: No Reported Reaction Past Psychological History: Anxiety Additional Psychological History / Comment(s): PT LIVES WITH HIS IN APT- HAS 2 INDOOR CATS. PT IS ON DISABLITY. USED TO WORK AT [employer].. NO SERVICED. NO OUTSIDE SERVICES. NO HOSPTIAL EQUIPMENT AT HOME. Smoking Status: Former smoker Past Alcohol Use History: Rare Additional Past Alcohol Use History / Comment(s): STARTED SMOKING 1972,QUIT 1997 , WAS SMOKING 1 PPD Past Drug Use History: Marijuana Additional Drug Use History / Comment(s): PAST MARIJUANA USE-NONE IN PAST 10 YEARS. - Past Family History Father Family Medical History: No Reported History Mother History Unknown: Yes Medications and Allergies Home Medications Medication Instructions Recorded Confirmed Type ALPRAZolam [Xanax] 1 mg PO TID PRN 02/29/16 07/13/18 History Atenolol [Tenormin] 50 mg PO DAILY 02/29/16 07/13/18 History Naproxen Sodium [Aleve] 220 mg PO DAILY PRN 07/13/18 07/13/18 History busPIRone HCL [Buspar] 7.5 mg PO BID 07/13/18 07/13/18 History Allergies Allergy/AdvReac Type Severity Reaction Status Date / Time No Known Allergies Allergy Verified 07/13/18 12:06 Physical Exam Vitals: Vital Signs Temp Pulse Pulse Resp BP BP Pulse Ox 07/14/18 11:00 78 20 105/71 93 L 07/14/18 10:00 86 17 100/74 91 L 07/14/18 09:00 78 16 105/72 93 L 07/14/18 08:00 98.8 F 86 18 117/77 93 L 07/14/18 07:45 91 L 07/14/18 07:00 93 16 105/67 94 L 07/14/18 06:20 152 H 27 H 107/88 95 07/14/18 06:10 112 H 23 114/71 98 07/14/18 06:00 131 H 15 108/78 95 07/14/18 05:54 114 H 8 L 97 07/14/18 05:50 98.6 F 110 H 25 H 108/78 96 07/14/18 05:30 114 H 22 107/55 96 07/14/18 04:17 107 H 14 84/49 96 07/14/18 04:09 77/38 07/14/18 03:56 100 16 89/59 94 L 07/14/18 03:22 90 16 92/58 94 L 07/14/18 03:16 114 H 14 89/53 96 07/14/18 03:10 101 H 16 93/53 96 07/14/18 03:04 89 16 82/50 94 L 07/14/18 03:02 98.7 F 07/14/18 02:55 100 16 71/49 95 07/14/18 02:50 95 14 85/61 94 L 07/14/18 02:47 97.6 F 96 16 84/63 94 L 07/14/18 02:45 100 14 80/63 95 07/14/18 01:43 109 H 14 108/68 93 L 07/14/18 01:15 126 H 14 97/54 93 L 07/14/18 00:09 111 H 108/71 07/14/18 00:01 133 H 16 99/75 96 07/13/18 23:33 98.3 F 07/13/18 23:32 120 H 16 96/63 94 L 07/13/18 23:25 126 H 16 91/55 96 07/13/18 23:22 129 H 16 90/56 96 07/13/18 23:16 129 H 16 96/60 95 07/13/18 20:00 97.3 F L 103 H 18 92/54 91 L 07/13/18 16:00 98.7 F 92 20 105/62 93 L Intake and Output 07/13/18 07/14/18 07/14/18 22:59 06:59 14:59 Intake Total 500.000 053.296 9263 Output Total 700 350 Balance 500.000 -228.793 900 Intake: IV 250 950 Sodium Chloride 0.9% 1, 250 950 000 ml @ 250 mls/hr IV . Q4H ONE Rx#:[id number] Intake, IV Titration 500.000 221.207 Amount Heparin Sod,Pork in 0.45% 500.000 211.832 NaCl 25,000 unit In 0.45 % NaCl 1 500ml.bag @ 18 UNITS/KG/HR 38.37 mls/hr IV .Q13H2M [facility] Rx#: [id number] Norepinephrine 4 mg In 9.375 Sodium Chloride 0.9% 250 ml @ Titrate IV .Q0M [facility] Rx#:[id number] Oral 300 Output: Urine 700 350 Other: Voiding Method Urinal # Voids 1 GENERAL: Patient is well-developed and well-nourished. Patient is nontoxic and well- hydrated and is in mild distress. ENT: Neck is soft and supple. No significant lymphadenopathy is noted. Oropharynx is clear. Moist mucous membranes. Neck has full range of motion without eliciting any pain. No jugular venous distention has been noted upstroke is normal EYES: The sclera were anicteric and conjunctiva were pink and moist. Extraocular movements were intact and pupils were equal round and reactive to light. Eyelids were unremarkable. PULMONARY: Unlabored respirations. Good breath sounds bilaterally. No audible rales rhonchi or wheezing was noted. CARDIOVASCULAR: There is a regular rate and rhythm without any murmurs gallops or rubs. S1 and S2 audible ABDOMEN: Soft and nontender with normal bowel sounds. No palpable organomegaly was noted. There is no palpable pulsatile mass. SKIN: Skin is clear with no lesions or rashes and otherwise unremarkable. NEUROLOGIC: Patient is alert and oriented x3. Cranial nerves II through XII are grossly intact. Motor and sensory are also intact. Normal speech, volume and content. Symmetrical smile. MUSCULOSKELETAL: Normal extremities with adequate strength and full range of motion. No lower extremity swelling or edema. No calf tenderness. LYMPHATICS: No significant lymphadenopathy is noted PSYCHIATRIC: Normal psychiatric evaluation. Limitations: no limitations Results - Laboratory Findings CBC and BMP: 07/14/18 08:05 07/14/18 08:05 PT/INR, D-dimer PT 11.6 sec (9.0-12.0) 07/14/18 08:05 INR 1.2 (<1.2) H 07/14/18 08:05 D-Dimer 9.76 mg/L FEU (<0.60) H 07/13/18 07:17 Abnormal lab findings: Abnormal Labs 07/13/18 07/13/18 07/13/18 07:17 07:17 07:17 Neutrophils # 7.8 H Lymphocytes # ESR INR APTT D-Dimer Chloride Carbon Dioxide Glucose 113 H POC Glucose (mg/dL) Calcium Total Creatine Kinase <20 L C-Reactive Protein Total Protein 5.8 L Albumin 2.9 L 07/13/18 07/13/18 07/13/18 07:17 07:17 07:17 Neutrophils # Lymphocytes # ESR 54 H INR 1.2 H APTT D-Dimer 9.76 H Chloride Carbon Dioxide Glucose POC Glucose (mg/dL) Calcium Total Creatine Kinase C-Reactive Protein 173.2 H Total Protein Albumin 07/14/18 07/14/18 07/14/18 02:12 04:55 08:05 Neutrophils # 9.6 H Lymphocytes # 0.5 L ESR 55 H INR APTT 38.7 H D-Dimer Chloride Carbon Dioxide Glucose POC Glucose (mg/dL) 106 H Calcium Total Creatine Kinase C-Reactive Protein Total Protein Albumin 07/14/18 07/14/18 07/14/18 08:05 08:05 12:33 Neutrophils # Lymphocytes # ESR INR 1.2 H APTT D-Dimer Chloride 111 H Carbon Dioxide 21 L Glucose 115 H POC Glucose (mg/dL) 179 H Calcium 7.9 L Total Creatine Kinase C-Reactive Protein Total Protein Albumin - Diagnostic Findings Chest x-ray: report reviewed, image reviewed CT scan - chest: report reviewed, image reviewed (Finding as noted above) Assessment and Plan Assessment: Acute pericarditis Small pericardial effusion Small bowel bilateral pleural effusion likely related to pleural pericardial disease History of hypertension Degenerative joint disease and osteoarthritis History of depression Plan: Gentle rehydration Pain control DVT and peptic ulcer disease prophylaxis Agree with cardiovascular evaluation given the small amount of pericardial fluid is not a candidate for aggressive invasive intervention Anti-inflammatory agents Continue supportive care follow clinical course closely further recommendations pending plan of care as per clinical response of the patient Time with Patient: Greater than 30
--- NOTE | 2018-07-14 15:22 | CDI ---
Last Revision, July 2017 Documentation Clarification Form Date: 07/14/2018 3:13:53 PM From: Trini HedrickBowman [facility], CCDS Admit Date: 07/13/2018 10:02:00 AM Patient Name: Kj Collier Visit Number: [id number] Discharge Date: ATTENTION: The Clinical Documentation Specialists (CDI) and [facility] Coding Staff appreciate your assistance in clarifying documentation. Please respond to the clarification below the line at the bottom and electronically sign. The CDI & [facility] Coding staff will review the response and follow-up if needed. Please note: Queries are made part of the Legal Health Record. If you have any questions, please contact the author of this message via ITS. Fernanda Ramos MD: Per the cardiology consult, the patient developed atrial fibrillation with a moderately rapid ventricular response. History/Risk Factors: Hypertension, Obesity w/BMI 31.9, Hyperlipidemia, GERD & OA. Clinical Indicators: Presented with SOB & chest pain. HR 97 - 85 - 114 - 152 - 78 EKG/telemetry: R 92 nsr, possible left atrial enlargement, nonspecific T wave abnormality. Treatment: Nitropaste, IV Toradol, IV Heparin, IV Dilaudid, IV Zofran, IV fluid 75, IV Cardizem. Admit to ICU. In your professional opinion, can you please clarify the type of atrial fibrillation, if known? Chronic/Permanent Paroxysmal Persistent Other, please specify Unable to determine Persistent atrial fibrillation MTDD
[2018-07-14] MEDS: KETOROLAC 30 MG/ML 1 ML VIAL IVP PRN ×2 (16:30→22:45)
[2018-07-14 17:20] LABS: Glucose,Whole Blood 190 mg/dL (75-99)
--- NOTE | 2018-07-14 18:32 | PN ---
PROGRESS NOTE DATE OF SERVICE: 07/14/2018 This 63-year-old gentleman was admitted shortness of breath and chest pain had features of pericardial effusion. The patient was started on a combination of colchicine , NSAIDs and as well as IV steroids. Cardiology is following the patient closely. The most recent 2D echocardiogram done today read by cardiology showed ejection fraction 50- 55 percent and trivial pericardial effusion. Otherwise, the patient is being closely monitored in ICU at this time and white count is normal. Blood sugars are slightly elevated. Chest x-ray showed significant cardiomegaly. PAST MEDICAL HISTORY: Reviewed. REVIEW OF SYSTEMS: Cardiovascular: As mentioned earlier. RESPIRATORY: As mentioned earlier. GI: No nausea or vomiting. no dysuria. Nervous system: No numbness or weakness. MEDICATIONS REVIEWED: 1. [place] 10 mg q.6h p.r.n. 2. Xanax 1 mg p.o. t.i.d. p.r.n. 3. Tenormin 50 mg p.o. daily. 4. BuSpar 7.5 mg p.o. b.i.d. 5. Colcrys 0.6 mg p.o. b.i.d. 6. Dilaudid 0.5 mg q.4h p.r.n. 7. Motrin 600 mg q8. 8. NovoLog a.c. and q.h.s. 10.Solu-Medrol 60 IV q.6h. 11.Levophed drip which is stopped. 12.Protonix 40 mg daily. PHYSICAL EXAMINATION: Patient is alert, oriented x3. Pulse 78, blood pressure 104/71, respiration 20, temperature is normal. Pulse ox 98% on 2 L. HEENT: Conjunctivae normal. Oral mucosa moist. Neck is no jugular venous distention. No carotid bruit. No lymph node enlargement. Cardiovascular System: S1, S2. Respirations: Breath sounds diminished in the bases. A few scattered rhonchi and crackles. Abdomen is soft, nontender. No mass palpable. Legs: No edema. No swelling. NERVOUS SYSTEM: Higher functions as mentioned. Moves all 4 limbs. No focal motor or sensory deficits. Lymphatics: No lymph nodes palpable in the neck, axillae or groin. JOINTS: No active deforming arthropathy. LABS: WBC 10.2, hemoglobin is 13, INR 1.2. The ESR is 55 and CRP is 173.2, albumin is 2.9. EKG personally reviewed by me showed ST-T changes and chest CTA showed no evidence of pulmonary embolism, pericardial effusion and bibasilar pleural effusion, atelectasis. ASSESSMENT: 1. Acute chest pain secondary to pleural pericarditis with pericardial effusion and severe chest pain. 2. Atrial fibrillation with fast ventricular rate. 3. Hypotension possibly secondary to atrial fibrillation, and as well as Cardizem drip. 4. Small bilateral pleural effusions. 5. Hypertension. 6. History of degenerative joint disease. 7. History of chronic pain syndrome. 8. History of colitis. 9. History of degenerative joint disease. 10.History of anxiety. 11.Remote history of nicotine dependence. 12.History of THC. RECOMMENDATIONS AND DISCUSSION: In this 63-year-old gentleman who presented with multiple complex medical issues as mentioned earlier, recommend to monitor the patient closely, continue the current medications, management and symptomatic treatment. Continue with steroids and NSAIDs as well as cultures. Blood pressure is improved significantly. 2D echo has been reviewed. Otherwise, chest x-ray personally reviewed by me as mentioned earlier , INR is 1.2, glucose 115. We will to continue to monitor. Prognosis guarded. See orders for details. Further recommendations to follow. MMODL / IJN: [id number] / ERIK
[2018-07-14] MEDS: HYDROmorphone 1 MG/ML 1 ML SYRINGE IVP PRN ×2 (19:01→23:52)
[2018-07-14 20:59] LABS: Glucose,Whole Blood 265 mg/dL (75-99)
[2018-07-14 20:59] LABS: Glucose,Whole Blood 251 mg/dL (75-99)
[2018-07-14] MEDS ORDERED: HEPARIN SODIUM,PORCINE 5,000 UNIT/ML 1 ML VIAL SQ SCH (21:00)
[2018-07-14 21:21] LABS: Appearance,Urine Clear (Clear); Bilirubin,Urine Negative (Negative); Blood,Urine Negative (Negative); Color,Urine Yellow; Glucose,Urine (UA) 4+ (Negative); Ketones,Urine Negative (Negative); Leukocyte Esterase,Urine Negative (Negative); Nitrite,Urine Negative (Negative); PH, Urine 5.5 (5.0-8.0); Protein,Urine Negative (Negative); Specific Gravity,Urine 1.017 (1.001-1.035); Urobilinogen,Urine <2.0 mg/dL (<2.0)
[2018-07-15 00:18] LABS: Glucose,Whole Blood 135 mg/dL (75-99)
[2018-07-15] MEDS: IBUPROFEN 600 MG TAB PO SCH ×3 (05:06→21:58)
[2018-07-15] MEDS: SODIUM CHLORIDE 0.9% 1,000 ML IV SCH ×3 (05:07→14:10)
[2018-07-15] MEDS: HYDROmorphone 1 MG/ML 1 ML SYRINGE IVP PRN (05:08)
[2018-07-15] MEDS: methylPREDNISolone SOD SUCCI 125 MG/2 ML VIAL IV SCH (05:11)
[2018-07-15 05:45] LABS: Basophils % (A) 0 %; Eosinophils % (A) 0 %; HCT 38.3 % (39.0-53.0); HGB 12.3 gm/dL (13.0-17.5); Lymphocytes # (A) 0.8 k/uL (1.0-4.8); Lymphocytes % (A) 5 %; MCH 29.5 pg (25.0-35.0); MCHC 32.1 g/dL (31.0-37.0); MCV 91.7 fL (80.0-100.0); Mean Platelet Volume 6.9; Monocytes # (A) 0.5 k/uL (0-1.0); Monocytes % (A) 3 %; Neutrophils % (A) 92 %; Platelet Count 425 k/uL (150-450); RBC 4.18 m/uL (4.30-5.90); RDW 12.9 % (11.5-15.5); WBC 16.3 k/uL (3.8-10.6)
[2018-07-15 06:04] LABS: Anion Gap 7 mmol/L; Blood Urea Nitrogen 13 mg/dL (9-20); Calcium 8.3 mg/dL (8.4-10.2); Carbon Dioxide 23 mmol/L (22-30); Chloride 111 mmol/L (98-107); Glucose 139 mg/dL (74-99); Magnesium 2.3 mg/dL (1.6-2.3); Phosphorus 3.3 mg/dL (2.5-4.5); Potassium 4.9 mmol/L (3.5-5.1); Sodium 141 mmol/L (137-145)
[2018-07-15 06:55] LABS: Glucose,Whole Blood 144 mg/dL (75-99)
[2018-07-15] MEDS: INSULIN ASPART 100 UNIT/ML 1 ML 10 ML VIAL SQ SCH ×4 (07:18→21:59)
[2018-07-15] MEDS: ATENOLOL 50 MG TAB PO SCH (08:28)
[2018-07-15] MEDS: busPIRone HCl 5 MG TAB PO SCH ×2 (08:29→21:50)
[2018-07-15] MEDS: COLCHICINE 0.6 MG EACH PO SCH ×2 (08:30→21:50)
[2018-07-15] MEDS: PANTOPRAZOLE 40 MG/10 ML VIAL IVP SCH (08:30)
--- NOTE | 2018-07-15 09:04 | P.PN ---
Subjective Progress Note Date: 07/15/18 This patient is admitted to the hospital with pleuritic chest pain and clinical and computed tomography scan evidence of pericarditis and pericardial effusion. Patient was in atrial fibrillation with a rapid ventricular response. He was started on IV Cardizem. Subsequently patient became hypotensive. Cardizem was discontinued and patient was given IV fluids. He also received a call seen and also steroids. He is feeling much better today. He still has some pain on deep breathing. Doesn't appear to be in acute dysphagia distress. His blood pressure is more stable. His converted to sinus rhythm. We'll continue current medical therapy. 07/15/2018: This patient is feeling much better. His pain has improved. He is able to take deep breaths. His maintaining sinus rhythm. His blood pressures up. We'll going to move him to telemetry unit. Get an echo [place] tomorrow. Switch steroids to by mouth steroids and gradually taper the mall. Continue with colchicine. Increase activity as tolerated. Objective - Vital Signs Vital signs: Vital Signs Temp 97.4 F L 07/15/18 04:00 Pulse 82 07/15/18 07:00 Resp 17 07/15/18 07:00 BP 139/88 07/15/18 07:00 Pulse Ox 93 L 07/15/18 07:00 Intake & Output 07/14/18 07/15/18 07/15/18 18:59 06:59 18:59 Intake Total 2930 2250 150 Output Total 1250 1600 Balance 1680 650 150 Weight 116 kg Intake: IV 2150 1650 150 Sodium Chloride 0.9% 1, 2150 1650 150 000 ml @ 250 mls/hr IV . Q4H ONE Rx#:[id number] Oral 780 600 Output: Urine 1250 1600 Other: Voiding Method Urinal Urinal # Bowel Movements 1 - Exam GENERAL EXAM: Patient is alert and oriented and doesn't appear to be in any acute distress HEENT: Normocephalic. Normal reaction of pupils, equal size, normal range of extraocular motion. No erythema or exudates in the throat. NECK: No masses, no nuchal rigidity. CHEST: No chest wall deformity. LUNGS: Equal air entry with no crackles or wheeze. HEART: S1 and S2 normal with no audible mumurs or gallops. Regular rhythm, femorals equal on both sides.. ABDOMEN: No hepatosplenomegaly, normal bowel sounds, no guarding or rigidity. SKIN: No rashes CENTRAL NERVOUS SYSTEM: No focal deficits. EXTREMITIES: No cyanosis, clubbing or edema. - Labs CBC & Chem 7: 07/15/18 04:49 07/15/18 04:49 Labs: Abnormal Lab Results - Last 24 Hours (Table) 07/14/18 07/14/18 07/14/18 Range/Units 08:05 12:33 17:17 WBC (3.8-10.6) k/uL RBC (4.30-5.90) m/uL Hgb (13.0-17.5) gm/dL Hct (39.0-53.0) % Neutrophils # (1.3-7.7) k/uL Lymphocytes # (1.0-4.8) k/uL ESR 55 H (0-15) mm/hr Chloride (98-107) mmol/L Glucose (74-99) mg/dL POC Glucose (mg/dL) 179 H 190 H (75-99) mg/dL Calcium (8.4-10.2) mg/dL Urine Glucose (UA) (Negative) 07/14/18 07/14/18 07/14/18 Range/Units 20:34 20:46 21:00 WBC (3.8-10.6) k/uL RBC (4.30-5.90) m/uL Hgb (13.0-17.5) gm/dL Hct (39.0-53.0) % Neutrophils # (1.3-7.7) k/uL Lymphocytes # (1.0-4.8) k/uL ESR (0-15) mm/hr Chloride (98-107) mmol/L Glucose (74-99) mg/dL POC Glucose (mg/dL) 265 H 251 H (75-99) mg/dL Calcium (8.4-10.2) mg/dL Urine Glucose (UA) 4+ H (Negative) 07/15/18 07/15/18 07/15/18 Range/Units 00:05 04:49 04:49 WBC 16.3 H (3.8-10.6) k/uL RBC 4.18 L (4.30-5.90) m/uL Hgb 12.3 L (13.0-17.5) gm/dL Hct 38.3 L (39.0-53.0) % Neutrophils # 15.0 H (1.3-7.7) k/uL Lymphocytes # 0.8 L (1.0-4.8) k/uL ESR (0-15) mm/hr Chloride 111 H (98-107) mmol/L Glucose 139 H (74-99) mg/dL POC Glucose (mg/dL) 135 H (75-99) mg/dL Calcium 8.3 L (8.4-10.2) mg/dL Urine Glucose (UA) (Negative) 07/15/18 Range/Units 06:50 WBC (3.8-10.6) k/uL RBC (4.30-5.90) m/uL Hgb (13.0-17.5) gm/dL Hct (39.0-53.0) % Neutrophils # (1.3-7.7) k/uL Lymphocytes # (1.0-4.8) k/uL ESR (0-15) mm/hr Chloride (98-107) mmol/L Glucose (74-99) mg/dL POC Glucose (mg/dL) 144 H (75-99) mg/dL Calcium (8.4-10.2) mg/dL Urine Glucose (UA) (Negative) Microbiology - Last 24 Hours (Table) 07/13/18 07:31 Blood Culture - Preliminary Blood No Growth after 24 hours Assessment and Plan (1) Pericarditis Current Visit: Yes Status: Acute Code(s): I31.9 - DISEASE OF PERICARDIUM, UNSPECIFIED SNOMED Code(s): 1542897 (2) Pericardial effusion Current Visit: Yes Status: Acute Code(s): I31.3 - PERICARDIAL EFFUSION ( NONINFLAMMATORY) SNOMED Code(s): 284753347 Plan: Patient is feeling much better. His pain has improved and patient is able to take deep breaths. Doesn't appear to be in distress. Maintaining sinus rhythm. Blood pressure has stabilized. Patient to be transferred to telemetry unit. Steroids to be slowly tapered .
[2018-07-15] MEDS: predniSONE 20 MG TAB PO SCH ×3 (09:49→21:50)
[2018-07-15 12:09] LABS: Glucose,Whole Blood 140 mg/dL (75-99)
--- NOTE | 2018-07-15 17:06 | PN ---
PROGRESS NOTE DATE OF SERVICE: 07/15/2018 This 63-year-old gentleman who was admitted with acute chest pain also had pleural pericarditis. The patient was started on multiple medical treatments, including NSAIDs, colchicine and IV steroids. The patient is feeling much better at this time. Patient is being closely monitored in ICU. Past medical history reviewed. REVIEW OF SYSTEMS: CARDIOVASCULAR SYSTEM: As mentioned earlier. RESPIRATORY SYSTEM: As mentioned earlier. GI: No nausea, vomiting. : No dysuria or retention. NERVOUS SYSTEM: No numbness, weakness. CURRENT MEDICATIONS: Reviewed. They include: 1. [place] 10 mg q.6 p.r.n. 2. Xanax 1 mg t.i.d. p.r.n. 3. Tenormin 50 mg daily. 4. BuSpar. Colcrys 0.6 b.i.d. 5. Dilaudid 0.5 mg q.4 p.r.n. 6. Toradol. 7. Protonix. 8. Prednisone. PHYSICAL EXAMINATION: Patient is alert, oriented x3. The pulse is 85, blood pressure 142/85, respiration 18, temperature 97.4, pulse ox 94% on 2 L. HEENT: Conjunctivae normal. NECK: No jugular venous distention. CARDIOVASCULAR SYSTEM: S1, S2 muffled. RESPIRATORY SYSTEM: Breath sounds diminished at the bases. Bilateral scattered rhonchi and crackles. ABDOMEN: Soft, non-tender. No mass palpable. LEGS: No edema. No swelling. NERVOUS SYSTEM: Higher functions as mentioned earlier. Moves all 4 limbs. No focal motor or sensory deficit. LYMPHATIC: No lymph node palpable in neck or axillae. SKIN: No ulcer, rash, bleeding. LABS: WBC 16.3, hemoglobin 12.3, sodium 141, potassium 4.9. ASSESSMENT: 1. Acute chest pain secondary to pleural pericarditis and pericardial effusion with severe chest pain, possibly viral or idiopathic. 2. Atrial fibrillation with fast ventricular rate. 3. Hypotension, possibly secondary to atrial fibrillation as well as Cardizem drip, improving. 4. Small bilateral pleural effusions. 5. Hypertension. 6. History of degenerative joint disease. 7. History of chronic pain syndrome. 8. History of colitis. 9. History of degenerative joint disease. 10.History of anxiety. 11.Remote history of nicotine dependence. 12.History of tetrahydrocannabinol. RECOMMENDATIONS AND DISCUSSION: I recommend to continue current medication, continue symptomatic treatment. Otherwise at this time I would recommend continuing with steroids. Continue the rest of the medications. Monitor blood sugars closely. I would also recommend repeat labs, pain medications, basic investigations for pericardial effusion. Patient also will require full cardiac workup. Prognosis is guarded because of multiple complex medical issues. Further recommendations to follow. Discussed with the patient, who understands and agrees. Dr. Toldeo will follow. MMODL / IJN: [id number] /
--- NOTE | 2018-07-15 17:36 | P.PN ---
Subjective Progress Note Date: 07/15/18 Principal diagnosis: Acute pericarditis, pericardial effusion, bilateral pleural effusion, hypertension, degenerative joint disease osteoarthritis 07/15/2018, patient seen eval examined during the rounds clinically patient has been doing slightly better he did require pain medications but overall respiratory status has been stable his x-rays and CAT scan revealed a small bilateral pleural effusion likely related to cardiac process and pericarditis, he is been on the anti-inflammatory agent tolerating very well severity of pain has improved labs reviewed medications reviewed care plan discussed with the staff at length Objective - Vital Signs Vital signs: Vital Signs Temp 98.3 F 07/15/18 16:00 Pulse 82 07/15/18 16:00 Resp 20 07/15/18 16:00 BP 122/74 07/15/18 16:00 Pulse Ox 95 07/15/18 16:00 Intake & Output 07/14/18 07/15/18 07/15/18 18:59 06:59 18:59 Intake Total 2930 2250 1350 Output Total 1250 1600 Balance 9290 227 4295 Weight 116 kg Intake: IV 2150 1650 1050 Sodium Chloride 0.9% 1, 900 000 ml @ 150 mls/hr IV . Q6H40M [facility] Rx#:[id number] Sodium Chloride 0.9% 1, 2150 1650 150 000 ml @ 250 mls/hr IV . Q4H ONE Rx#:[id number] Oral 780 600 300 Output: Urine 1250 1600 Other: Voiding Method Urinal Urinal Toilet Urinal # Voids 1 # Bowel Movements 1 1 - Exam GENERAL: Patient is well-developed and well-nourished. Patient is nontoxic and well- hydrated and is in mild distress. ENT: Neck is soft and supple. No significant lymphadenopathy is noted. Oropharynx is clear. Moist mucous membranes. Neck has full range of motion without eliciting any pain. No jugular venous distention has been noted upstroke is normal EYES: The sclera were anicteric and conjunctiva were pink and moist. Extraocular movements were intact and pupils were equal round and reactive to light. Eyelids were unremarkable. PULMONARY: Unlabored respirations. Good breath sounds bilaterally. No audible rales rhonchi or wheezing was noted. CARDIOVASCULAR: There is a regular rate and rhythm without any murmurs gallops or rubs. S1 and S2 audible ABDOMEN: Soft and nontender with normal bowel sounds. No palpable organomegaly was noted. There is no palpable pulsatile mass. SKIN: Skin is clear with no lesions or rashes and otherwise unremarkable. NEUROLOGIC: Patient is alert and oriented x3. Cranial nerves II through XII are grossly intact. Motor and sensory are also intact. Normal speech, volume and content. Symmetrical smile. MUSCULOSKELETAL: Normal extremities with adequate strength and full range of motion. No lower extremity swelling or edema. No calf tenderness. LYMPHATICS: No significant lymphadenopathy is noted PSYCHIATRIC: Normal psychiatric evaluation. - Labs CBC & Chem 7: 07/15/18 04:49 07/15/18 04:49 Labs: Abnormal Lab Results - Last 24 Hours (Table) 07/14/18 07/14/18 07/14/18 Range/Units 20:34 20:46 21:00 WBC (3.8-10.6) k/uL RBC (4.30-5.90) m/uL Hgb (13.0-17.5) gm/dL Hct (39.0-53.0) % Neutrophils # (1.3-7.7) k/uL Lymphocytes # (1.0-4.8) k/uL ESR (0-15) mm/hr Chloride (98-107) mmol/L Glucose (74-99) mg/dL POC Glucose (mg/dL) 265 H 251 H (75-99) mg/dL Calcium (8.4-10.2) mg/dL C-Reactive Protein (<10.0) mg/L Urine Glucose (UA) 4+ H (Negative) 07/15/18 07/15/18 07/15/18 Range/Units 00:05 04:49 04:49 WBC 16.3 H (3.8-10.6) k/uL RBC 4.18 L (4.30-5.90) m/uL Hgb 12.3 L (13.0-17.5) gm/dL Hct 38.3 L (39.0-53.0) % Neutrophils # 15.0 H (1.3-7.7) k/uL Lymphocytes # 0.8 L (1.0-4.8) k/uL ESR (0-15) mm/hr Chloride 111 H (98-107) mmol/L Glucose 139 H (74-99) mg/dL POC Glucose (mg/dL) 135 H (75-99) mg/dL Calcium 8.3 L (8.4-10.2) mg/dL C-Reactive Protein (<10.0) mg/L Urine Glucose (UA) (Negative) 07/15/18 07/15/18 07/15/18 Range/Units 04:49 04:49 06:50 WBC (3.8-10.6) k/uL RBC (4.30-5.90) m/uL Hgb (13.0-17.5) gm/dL Hct (39.0-53.0) % Neutrophils # (1.3-7.7) k/uL Lymphocytes # (1.0-4.8) k/uL ESR 18 H (0-15) mm/hr Chloride (98-107) mmol/L Glucose (74-99) mg/dL POC Glucose (mg/dL) 144 H (75-99) mg/dL Calcium (8.4-10.2) mg/dL C-Reactive Protein 131.9 H (<10.0) mg/L Urine Glucose (UA) (Negative) 07/15/18 Range/Units 12:06 WBC (3.8-10.6) k/uL RBC (4.30-5.90) m/uL Hgb (13.0-17.5) gm/dL Hct (39.0-53.0) % Neutrophils # (1.3-7.7) k/uL Lymphocytes # (1.0-4.8) k/uL ESR (0-15) mm/hr Chloride (98-107) mmol/L Glucose (74-99) mg/dL POC Glucose (mg/dL) 140 H (75-99) mg/dL Calcium (8.4-10.2) mg/dL C-Reactive Protein (<10.0) mg/L Urine Glucose (UA) (Negative) Microbiology - Last 24 Hours (Table) 07/13/18 07:31 Blood Culture - Preliminary Blood No Growth after 48 hours Assessment and Plan Assessment: Acute pericarditis Small pericardial effusion Small bowel bilateral pleural effusion likely related to pleural pericardial disease History of hypertension Degenerative joint disease and osteoarthritis History of depression Plan: Gentle rehydration Pain control DVT and peptic ulcer disease prophylaxis Agree with cardiovascular evaluation given the small amount of pericardial fluid is not a candidate for aggressive invasive intervention Anti-inflammatory agents Continue supportive care follow clinical course closely further recommendations pending plan of care as per clinical response of the patient Time with Patient: Greater than 30
[2018-07-15 18:02] LABS: Glucose,Whole Blood 134 mg/dL (75-99)
[2018-07-15 19:02] LABS: Rheumatoid Factor 9 IU/mL (0-15)
[2018-07-15 21:57] LABS: Glucose,Whole Blood 147 mg/dL (75-99)
[2018-07-15] MEDS: ALPRAZolam 1 MG TAB PO PRN (21:59)
[2018-07-16 05:13] LABS: Basophils % (A) 0 %; Eosinophils % (A) 0 %; HCT 37.7 % (39.0-53.0); HGB 12.1 gm/dL (13.0-17.5); Lymphocytes % (A) 6 %; MCH 29.4 pg (25.0-35.0); MCHC 32.2 g/dL (31.0-37.0); MCV 91.4 fL (80.0-100.0); Mean Platelet Volume 6.7; Monocytes # (A) 0.6 k/uL (0-1.0); Monocytes % (A) 4 %; Neutrophils # (A) 16.2 k/uL (1.3-7.7); Neutrophils % (A) 90 %; Platelet Count 461 k/uL (150-450); RBC 4.13 m/uL (4.30-5.90)
[2018-07-16 05:17] LABS: Anion Gap 4 mmol/L; Blood Urea Nitrogen 18 mg/dL (9-20); Calcium 8.4 mg/dL (8.4-10.2); Carbon Dioxide 26 mmol/L (22-30); Chloride 111 mmol/L (98-107); Glucose 123 mg/dL (74-99); Magnesium 2.5 mg/dL (1.6-2.3); Phosphorus 3.6 mg/dL (2.5-4.5); Sodium 141 mmol/L (137-145)
[2018-07-16] MEDS: INSULIN ASPART 100 UNIT/ML 1 ML 10 ML VIAL SQ SCH ×2 (05:52→11:57)
[2018-07-16 05:53] LABS: Glucose,Whole Blood 125 mg/dL (75-99)
[2018-07-16] MEDS: IBUPROFEN 600 MG TAB PO SCH ×2 (06:00→16:02)
[2018-07-16] MEDS: busPIRone HCl 5 MG TAB PO SCH (08:53)
[2018-07-16] MEDS: ATENOLOL 50 MG TAB PO SCH (08:53)
[2018-07-16] MEDS: predniSONE 20 MG TAB PO SCH ×2 (08:53→16:03)
[2018-07-16] MEDS: COLCHICINE 0.6 MG EACH PO SCH (09:26)
[2018-07-16] MEDS: PANTOPRAZOLE 40 MG/10 ML VIAL IVP SCH (09:27)
--- NOTE | 2018-07-16 09:48 | ECHOF ---
Referral Reason:pericardial effusion MEASUREMENTS -------- HEIGHT: 182.9 cm WEIGHT: 115.7 kg BP: 138/85 IVC: 1.9 cm FINDINGS -------- Sinus rhythm. Limited Study Overall left ventricular systolic function is normal with, an EF between 55 - 60 %. There is a trivial pericardial effusion present. CONCLUSIONS -------- 1. Sinus rhythm. 2. Limited Study 3. Overall left ventricular systolic function is normal with, an EF between 55 - 60 %. 4. There is a trivial pericardial effusion present. [employer]ULIER: Cheyanne Brown RDCS
[2018-07-16 11:42] LABS: Glucose,Whole Blood 93 mg/dL (75-99)
--- NOTE | 2018-07-16 13:34 | P.DS ---
Providers Date of admission: 07/13/18 10:02 Attending physician: Enrique Medley Consults: 07/13/18 10:02 Consult Physician Urgent Consulting Provider: [facility] Consult Reason/Comments: Pericardial effusion Do you want consulting provider notified?: Yes 07/13/18 12:57 Consult Physician Routine Consulting Provider: Festus Lyon Consult Reason/Comments: abnormal CTA Do you want consulting provider notified?: Yes 07/14/18 04:23 Consult Physician Stat Consulting Provider: Festus Lyon Consult Reason/Comments: radio disc jockey Do you want consulting provider notified?: Yes Primary care physician: [facility] Hospital Course: 63-year-old admitted for Pleuropericarditis symptoms completely resolved at this time. Initially discharged on nonsteroidal anti-emetics and colchicine but the cardiology is recommending weaning dose of steroids as well. Patient does will continue his GI prophylaxis as well patient will be discharged today. Patient's symptoms completely resolved and patient repeat echocardiogram only showed minimal effusion. PHYSICAL EXAMINATION: GENERAL: The patient is alert and oriented x3, not in any acute distress. Well developed, well nourished. HEENT: Pupils are round and equally reacting to light. EOMI. No scleral icterus. No conjunctival pallor. Normocephalic, atraumatic. No pharyngeal erythema. No thyromegaly. CARDIOVASCULAR: S1 and S2 present. No murmurs, rubs, or gallops. PULMONARY: Chest is clear to auscultation, no wheezing or crackles. ABDOMEN: Soft, nontender, nondistended, normoactive bowel sounds. No palpable organomegaly. MUSCULOSKELETAL: No joint swelling or deformity. EXTREMITIES: No cyanosis, clubbing, or pedal edema. NEUROLOGICAL: Gross neurological examination did not reveal any focal deficits. SKIN: No rashes. Other chronic medical problems and hospitalization course please refer to dictation of progress note from Dr. White from yesterday Plan - Discharge Summary Discharge Rx Participant: Yes New Discharge Prescriptions: New Colchicine [Colcrys] 0.6 mg PO BID each Ibuprofen [Motrin] 600 mg PO BID #14 tab Ranitidine HCl [Zantac] 150 mg PO BID #30 tab Continue Atenolol [Tenormin] 50 mg PO DAILY ALPRAZolam [Xanax] 1 mg PO TID PRN PRN Reason: Anxiety busPIRone HCL [Buspar] 7.5 mg PO BID Discontinued Naproxen Sodium [Aleve] 220 mg PO DAILY PRN PRN Reason: Pain Discharge Medication List ALPRAZolam [Xanax] 1 mg PO TID PRN 02/29/16 [History] Atenolol [Tenormin] 50 mg PO DAILY 02/29/16 [History] busPIRone HCL [Buspar] 7.5 mg PO BID 07/13/18 [History] Colchicine [Colcrys] 0.6 mg PO BID each 07/16/18 [Rx] Ibuprofen [Motrin] 600 mg PO BID #14 tab 07/16/18 [Rx] Ranitidine HCl [Zantac] 150 mg PO BID #30 tab 07/16/18 [Rx] Follow up Appointment(s)/Referral(s): Delonte Catherine DO [Primary Care Provider] - 3 Days (Spoke to ensemble member. Office will call with appointment time) Festus Lyon MD [STAFF PHYSICIAN] - 1 Week Ambulatory/Diagnostic Orders: Basic Metabolic Panel [LAB.AMB] Time Frame: 3 Days, Location: None Selected Discharge Disposition: HOME SELF-CARE
[2018-07-16 14:14] VITALS: RESP 20
--- NOTE | 2018-07-16 14:17 | P.PN ---
Subjective Progress Note Date: 07/16/18 63-year-old gentleman primarily admitted to the hospital with symptoms of pleuritic chest pain. Echo revealed evidence of pericardial effusion, and CTA suggestive of pericarditis, patient was in atrial fibrillation with rapid ventricular response and became quite hypotensive, he was initially admitted to the intensive care unit. Patient was seen and examined today, he states he has no pain with deep breathing today, repeat echocardiogram with Doppler study was performed which only revealed a trivial amount of pericardial effusion. Blood pressure 130/80 with a heart rate in the 90s, 95% on room air. Objective - Vital Signs Vital signs: Vital Signs Temp 97.8 F 07/16/18 08:40 Pulse 91 07/16/18 08:40 Resp 22 07/16/18 08:40 BP 131/80 07/16/18 08:40 Pulse Ox 95 07/16/18 08:40 Intake & Output 07/15/18 07/16/18 07/16/18 18:59 06:59 18:59 Intake Total 1350 240 Balance 1350 240 Weight 113.6 kg Intake: IV 1050 Sodium Chloride 0.9% 1, 900 000 ml @ 150 mls/hr IV . Q6H40M [facility] Rx#:[id number] Sodium Chloride 0.9% 1, 150 000 ml @ 250 mls/hr IV . Q4H ONE Rx#:[id number] Oral 300 240 Other: Voiding Method Toilet Toilet # Voids 1 1 # Bowel Movements 1 - Exam PHYSICAL EXAMINATION: GENERAL: She 3-year-old gentleman in no acute distress at the time of my examination HEENT: Head is atraumatic, normocephalic. Pupils equal, round. Sclera anicteric. Conjunctiva are clear. Mucous membranes of the mouth are moist. Neck is supple. There is no elevated jugular venous pressure.] bruit is heard. HEART EXAMINATION: Heart S1, S2 normal. No murmur or gallop heard. CHEST EXAMINATION: Lungs are clear to auscultation and precussion. No chest wall tenderness is noted on palpation or with deep breathing. ABDOMEN: Soft, nontender. Bowel sounds are heard. No organomegaly noted. EXTREMITIES: 2+ peripheral pulses with no evidence of peripheral edema and no calf tenderness noted. NEUROLOGIC patient is awake, alert and oriented ?-3. . - Labs CBC & Chem 7: 07/16/18 04:45 07/16/18 04:45 Labs: Abnormal Lab Results - Last 24 Hours (Table) 07/15/18 07/15/18 07/15/18 Range/Units 04:49 04:49 17:49 WBC (3.8-10.6) k/uL RBC (4.30-5.90) m/uL Hgb (13.0-17.5) gm/dL Hct (39.0-53.0) % Plt Count (150-450) k/uL Neutrophils # (1.3-7.7) k/uL ESR 18 H (0-15) mm/hr Chloride (98-107) mmol/L Glucose (74-99) mg/dL POC Glucose (mg/dL) 134 H (75-99) mg/dL Magnesium (1.6-2.3) mg/dL C-Reactive Protein 131.9 H (<10.0) mg/L 07/15/18 07/16/18 07/16/18 Range/Units 21:54 04:45 04:45 WBC 18.0 H (3.8-10.6) k/uL RBC 4.13 L (4.30-5.90) m/uL Hgb 12.1 L (13.0-17.5) gm/dL Hct 37.7 L (39.0-53.0) % Plt Count 461 H (150-450) k/uL Neutrophils # 16.2 H (1.3-7.7) k/uL ESR (0-15) mm/hr Chloride 111 H (98-107) mmol/L Glucose 123 H (74-99) mg/dL POC Glucose (mg/dL) 147 H (75-99) mg/dL Magnesium 2.5 H (1.6-2.3) mg/dL C-Reactive Protein (<10.0) mg/L 07/16/18 Range/Units 05:52 WBC (3.8-10.6) k/uL RBC (4.30-5.90) m/uL Hgb (13.0-17.5) gm/dL Hct (39.0-53.0) % Plt Count (150-450) k/uL Neutrophils # (1.3-7.7) k/uL ESR (0-15) mm/hr Chloride (98-107) mmol/L Glucose (74-99) mg/dL POC Glucose (mg/dL) 125 H (75-99) mg/dL Magnesium (1.6-2.3) mg/dL C-Reactive Protein (<10.0) mg/L Microbiology - Last 24 Hours (Table) 07/13/18 07:31 Blood Culture - Preliminary Blood No Growth after 72 hours Assessment and Plan Plan: Assessment and plan #1 acute chest pain secondary to pleural pericarditis with evidence of pericardial effusion. Repeat echo today showed only a trivial amount of pericardial fluid. #2 atrial fibrillation with rapid ventricular response, remaining in normal sinus rhythm #3 hypertension #4 history of anxiety #5 nicotine dependence Plan Cardiology's perspective, patient may be able to be discharged home today on a tapered dose of prednisone along with colchicine and nonsteroidals which we will continue for 6 weeks. He will follow-up in the office with Dr. VC Mar post discharge. DNP note has been reviewed, I agree with a documented findings and plan of care. Patient was seen and examined.
[2018-07-16 15:27] VITALS: BP 126/80; PULSE 77; TEMP 97.8
[2018-07-17] MEDS ORDERED: PANTOPRAZOLE 40 MG TABLET PO SCH ×2 (07:30)
--- NOTE | 2018-07-17 09:54 | P.PN ---
Subjective Progress Note Date: 07/16/18 (Late entry note) Principal diagnosis: Acute pericarditis, pericardial effusion, bilateral pleural effusion, hypertension, degenerative joint disease osteoarthritis 07/16/2018, patient seen eval examined during the rounds clinically patient has been doing well breathing more comfortably I have discussed with patient at length about the computed tomography scan finding of bilateral small pleural effusion as well as pericardial effusion overall plan is to monitor observe no new recommendation continue deep breathing sense incentive spirometry continue NSAIDs for now would recommend to avoid steroids, increase activity as tolerated care plan discussed with the patient and family present at bedside at length 07/15/2018, patient seen eval examined during the rounds clinically patient has been doing slightly better he did require pain medications but overall respiratory status has been stable his x-rays and CAT scan revealed a small bilateral pleural effusion likely related to cardiac process and pericarditis, he is been on the anti-inflammatory agent tolerating very well severity of pain has improved labs reviewed medications reviewed care plan discussed with the staff at length Objective - Vital Signs Vital signs: Vital Signs Temp 97.8 F 07/16/18 15:15 Pulse 77 07/16/18 15:15 Resp 20 07/16/18 15:15 BP 126/80 07/16/18 15:15 Pulse Ox 94 L 07/16/18 15:15 Intake & Output 07/16/18 07/17/18 07/17/18 18:59 06:59 18:59 Intake Total 480 Balance 480 Intake: Oral 480 Other: # Voids 3 - Exam GENERAL: Patient is well-developed and well-nourished. Patient is nontoxic and well- hydrated and is in mild distress. ENT: Neck is soft and supple. No significant lymphadenopathy is noted. Oropharynx is clear. Moist mucous membranes. Neck has full range of motion without eliciting any pain. No jugular venous distention has been noted upstroke is normal EYES: The sclera were anicteric and conjunctiva were pink and moist. Extraocular movements were intact and pupils were equal round and reactive to light. Eyelids were unremarkable. PULMONARY: Unlabored respirations. Good breath sounds bilaterally. No audible rales rhonchi or wheezing was noted. CARDIOVASCULAR: There is a regular rate and rhythm without any murmurs gallops or rubs. S1 and S2 audible ABDOMEN: Soft and nontender with normal bowel sounds. No palpable organomegaly was noted. There is no palpable pulsatile mass. SKIN: Skin is clear with no lesions or rashes and otherwise unremarkable. NEUROLOGIC: Patient is alert and oriented x3. Cranial nerves II through XII are grossly intact. Motor and sensory are also intact. Normal speech, volume and content. Symmetrical smile. MUSCULOSKELETAL: Normal extremities with adequate strength and full range of motion. No lower extremity swelling or edema. No calf tenderness. LYMPHATICS: No significant lymphadenopathy is noted PSYCHIATRIC: Normal psychiatric evaluation. - Labs CBC & Chem 7: 07/16/18 04:45 07/16/18 04:45 Labs: Microbiology - Last 24 Hours (Table) 07/13/18 07:31 Blood Culture - Preliminary Blood No Growth after 72 hours Assessment and Plan Assessment: Acute pericarditis likely viral Small pericardial effusion related to above Small bowel bilateral pleural effusion likely related to pleural pericardial disease History of hypertension Degenerative joint disease and osteoarthritis History of snoring and apnea possible sleep disorder breathing and sleep apnea History of depression Plan: Gentle rehydration Pain control DVT and peptic ulcer disease prophylaxis Agree with cardiovascular evaluation given the small amount of pericardial fluid is not a candidate for aggressive invasive intervention Anti-inflammatory agents Continue supportive care follow clinical course closely further recommendations pending plan of care as per clinical response of the patient Patient can be discharged home from pulmonary standpoint Follow-up in outpatient setting patient will need a sleep study Time with Patient: Greater than 30
== END 2018-07-16 17:10 | disposition home or self-care (01) | DRG 315 ==
LOC: EC 06:50 → 3SCARD 10:02 → 2SICU 07-14 04:37 → 3SCARD 07-16 06:03
PROVIDERS: ADMIT Internal Medicine; ATTEND Internal Medicine
DX: I30.9 Acute pericarditis, unspecified (principal); I48.1 Persistent atrial fibrillation; J90 Pleural effusion, not elsewhere classified; J98.11 Atelectasis; E11.9 Type 2 diabetes mellitus without complications; E66.9 Obesity, unspecified; Z87.891 Personal history of nicotine dependence; F32.9 Major depressive disorder, single episode, unspecified; G89.4 Chronic pain syndrome; I10 Essential (primary) hypertension; K21.9 Gastro-esophageal reflux disease without esophagitis; M19.012 Primary osteoarthritis, left shoulder; M19.011 Primary osteoarthritis, right shoulder; M19.90 Unspecified osteoarthritis, unspecified site; Z68.31 Body mass index [BMI] 31.0-31.9, adult; Z79.899 Other long term (current) drug therapy; I95.2 Hypotension due to drugs; T46.1X5A Adverse effect of calcium-channel blockers, initial encounter; B97.89 Other viral agents as the cause of diseases classified elsewhere
CPT/HCPCS: 36415; 71045; 71046; 71275; 80048; 80053; 81003; 82550; 82553; 83735; 84100; 84484; 85025; 85379; 85610; 85652; 85730; 86038; 86140; 86431; 87040; 93005; 93306; 93308; 96365; 96366; 96375; 96376; 99291

== ENCOUNTER 2021-06-18 04:25 | Observation (INO) | payer MEDICARE ==
--- NOTE | 2021-06-18 04:46 | ED ---
Chest Pain HPI - General Chief Complaint: Chest Pain Stated Complaint: Chest Pain Time Seen by Provider: 06/18/21 04:43 Source: patient Mode of arrival: ambulatory Limitations: no limitations - History of Present Illness Initial Comments: This patient is 66-year-old man who had developed chest pain yesterday in the evening. He states that it has subsequently become more intense. Denies states that there is a component that is worse when he takes a deep breath and this is very similar to pain he experienced previously with a pericardial effusion. The patient also has felt a little sweaty. No dyspnea, nausea or vomiting, palpitations, lightheadedness or syncope. MD Complaint: chest pain Onset/Timin -: hour(s) Onset: during rest Pain Location: substernal Pain Radiation: none Severity: moderate Quality: aching Consistency: constant Improves With: nothing Worsens With: inspiration - Related Data Home Medications Medication Instructions Recorded Confirmed ALPRAZolam [Xanax] 1 mg PO TID PRN 02/29/16 06/18/21 atenoloL [Tenormin] 75 mg PO BID 02/29/16 06/18/21 Atorvastatin Calcium [Lipitor] 10 mg PO DAILY 06/18/21 06/18/21 busPIRone HCl [Buspar] 7.5 mg PO BID 06/18/21 06/18/21 Previous Rx's Medication Instructions Recorded Famotidine [Pepcid] 20 mg PO BID #60 tablet 06/19/21 Allergies Allergy/AdvReac Type Severity Reaction Status Date / Time No Known Allergies Allergy Verified 06/18/21 07:32 Review of Systems ROS Statement: Those systems with pertinent positive or pertinent negative responses have been documented in the HPI. ROS Other: All systems not noted in ROS Statement are negative. Constitutional: Denies: fever, chills Respiratory: Denies: cough, dyspnea, hemoptysis Cardiovascular: Reports: chest pain. Denies: palpitations, edema, syncope Gastrointestinal: Denies: abdominal pain, nausea, vomiting, diarrhea, constipation Genitourinary: Denies: dysuria, hematuria Musculoskeletal: Denies: back pain Skin: Denies: rash Neurological: Denies: headache EKG Findings - EKG Results: EKG: interpreted by ERMD, sinus rhythm (Rate 74 bpm), normal axis, normal QRS - Blocks, Atkins, Hypertrophy, ST Abn: Repolarization changes or abnormalities: nonspecific abnormality, ST segment, and/or T wave Past Medical History Past Medical History: GERD/Reflux, Hypertension, Osteoarthritis (OA) Additional Past Medical History / Comment(s): chronic pain due to orthopedic problems, ddd, BULGING DISC,BENIGN COLON POLYP, COLITS WHEN YOUNGER, USED TO TAKE MEDS FOR CHOLESTEROL-NONE NOW."OCC HEARTBURN-TAKES TUMS" History of Any Multi-Drug Resistant Organisms: None Reported Past Surgical History: Hernia Repair, Orthopedic Surgery Additional Past Surgical History / Comment(s): 3 right and 3left shoulder surgeries. EGD/COLONOSCOPY, 3 SX LT ANKLE-PLATE AND SCREW, 2ND SX TO REMOVED HEARD WEAR, 3RD SX FOR NEUROMA. HEMORRHOIDS, FISTUAL REPAIR Past Anesthesia/Blood Transfusion Reactions: No Reported Reaction Past Psychological History: Anxiety Smoking Status: Current every day smoker Past Alcohol Use History: Rare Past Drug Use History: Marijuana - Past Family History Father Family Medical History: No Reported History Mother History Unknown: Yes General Exam Limitations: no limitations General appearance: alert, in no apparent distress Head exam: Present: atraumatic, normocephalic Eye exam: Present: normal appearance. Absent: scleral icterus, conjunctival injection Neck exam: Present: normal inspection Respiratory exam: Present: normal lung sounds bilaterally. Absent: respiratory distress, wheezes, rales, rhonchi, stridor, accessory muscle use Cardiovascular Exam: Present: regular rate, normal rhythm, normal heart sounds GI/Abdominal exam: Present: soft. Absent: distended, tenderness, guarding, rebound, rigid, mass Extremities exam: Present: normal inspection, normal capillary refill. Absent: pedal edema, calf tenderness Back exam: Present: normal inspection. Absent: CVA tenderness (R), CVA tenderness (L) Neurological exam: Present: alert Skin exam: Present: warm, dry, intact, normal color. Absent: rash Course Vital Signs 06/18/21 06/18/21 06/18/21 04:30 05:04 06:00 Temperature 98.1 F 97.8 F Pulse Rate 79 77 78 Respiratory 18 24 22 Rate Blood Pressure 160/112 114/92 115/79 O2 Sat by Pulse 97 96 97 Oximetry 06/18/21 06/18/21 07:00 16:37 Temperature Pulse Rate 77 80 Respiratory 22 18 Rate Blood Pressure 120/88 119/87 O2 Sat by Pulse 98 99 Oximetry Disposition Clinical Impression: Chest pain Disposition: ADMITTED IP TO THIS HOSP Condition: Fair Is patient prescribed a controlled substance at d/c from ED?: No
[2021-06-18] MEDS ORDERED: MORPHINE SULFATE 4 MG/ML SYRINGE IV STA (04:55)
[2021-06-18] MEDS ORDERED: NITROGLYCERIN SL TABS 0.4 MG TAB SUBLINGUAL STA (04:55)
[2021-06-18 05:02] LABS: Basophils # (A) 0.1 k/uL (0-0.2); Basophils % (A) 1 %; Eosinophils # (A) 0.1 k/uL (0-0.7); Eosinophils % (A) 1 %; HCT 52.6 % (39.0-53.0); HGB 17.9 gm/dL (13.0-17.5); Lymphocytes # (A) 2.1 k/uL (1.0-4.8); Lymphocytes % (A) 21 %; MCH 31.5 pg (25.0-35.0); MCHC 33.9 g/dL (31.0-37.0); MCV 92.9 fL (80.0-100.0); Mean Platelet Volume 7.6; Monocytes # (A) 0.7 k/uL (0-1.0); Monocytes % (A) 7 %; Neutrophils # (A) 7.1 k/uL (1.3-7.7); Neutrophils % (A) 69 %; Platelet Count 181 k/uL (150-450); RBC 5.67 m/uL (4.30-5.90); RDW 13.4 % (11.5-15.5); WBC 10.2 k/uL (3.8-10.6)
[2021-06-18 05:15] LABS: ALT 27 U/L (4-49); AST 22 U/L (17-59); African American GFR (CKD) >90 (>60 ml/min/1.73 sqM); Alkaline Phosphatase 89 U/L (38-126); Anion Gap 7 mmol/L; Blood Urea Nitrogen 16 mg/dL (9-20); Carbon Dioxide 22 mmol/L (22-30); Chloride 107 mmol/L (98-107); Glucose 123 mg/dL (74-99); Non-African American GFR(CKD) >90 (>60 ml/min/1.73 sqM); Partial Thromboplastin Time 23.6 sec (22.0-30.0); Potassium 4.3 mmol/L (3.5-5.1); Prothrombin Time 10.3 sec (9.0-12.0); Sodium 136 mmol/L (137-145); Total Bilirubin 0.8 mg/dL (0.2-1.3); Total Protein 6.5 g/dL (6.3-8.2)
--- NOTE | 2021-06-18 05:58 | XR ---
EXAMINATION TYPE: XR chest 2V DATE OF EXAM: 06/18/2021 COMPARISON: 07/14/2018 HISTORY: Chest pain TECHNIQUE: FINDINGS: Heart is normal. Lungs are clear of consolidation. There is no heart failure. There are no hilar masses. There are chest leads. There is right shoulder prosthesis. IMPRESSION: No active cardiopulmonary disease. There is clearing of left pleural effusion compared to old exam.
[2021-06-18] MEDS: MORPHINE SULFATE 4 MG/ML SYRINGE IV PRN ×5 (07:02→22:08)
[2021-06-18] MEDS: NITROGLYCERIN SL TABS 0.4 MG TAB SUBLINGUAL PRN ×2 (07:03→17:37)
--- NOTE | 2021-06-18 13:14 | P.CRDCN ---
History of Present Illness History of present illness: HISTORY OF PRESENTING ILLNESS Patient is a pleasant 66-year-old male with a history of pericarditis 2018, prior atrial fibrillation around time of pericarditis, hypertension, who presents secondary to new-onset of chest pain and discomfort over the last 24 hours. Patient states this does feel somewhat similar to his prior episode from 2018 when he initially had more pleuritic type symptoms with deep inspiration however that was also having pericarditis type symptoms improved with sitting up. He states the pain felt similar and is mainly associated with deep inspiration. It is somewhat reproducible with sternal palpation however mainly with deep inspiration. He states it might feel somewhat better sitting up. He had been treated with colchicine in 2018 and this had resolved. He then started noticing chest discomfort which has been fairly constant over the last 24 hours. White blood cell 10.2 hemoglobin 17.9, d-dimer 0.62, creatinine 0.79, troponin negative 3, proBNP 343, EKG normal sinus rhythm, no significant ST or T wave abnormalities, minimal P-R depressions in 2, 3, aVF. REVIEW OF SYSTEMS At the time of my exam: CONSTITUTIONAL: Denies fever or chills. CARDIOVASCULAR: +chest pain, shortness of breath, orthopnea, PND or palpitations. RESPIRATORY: Denies cough. GASTROINTESTINAL: Denies abdominal pain, diarrhea, constipation, nausea or vomiting. MUSCULOSKELETAL: Denies myalgias. NEUROLOGIC: Denies numbness, tingling or weakness. ENDOCRINE: Denies fatigue, weight change, polydipsia or polyurina. GENITOURINARY: Denies burning, hematuria or urgency with micturation. HEMATOLOGIC: Denies history of anemia or bleeding. PHYSICAL EXAMINATION Vital signs reviewed. CONSTITUTIONAL: No apparent distress. HEENT: Head is normocephalic. Pupils are equal, round. Sclerae anicteric. Mucous membranes of the mouth are moist. No JVD. No carotid bruit. CHEST EXAMINATION: Lungs are clear to auscultation. HEART EXAMINATION: Regular rate and rhythm. S1, S2 heard. No murmurs, gallops or rub. ABDOMEN: Soft, nontender. Positive bowel sounds. EXTREMITIES: 2+ peripheral pulses, no lower extremity edema and no calf tenderness. NEUROLOGIC EXAMINATION: Patient is awake, alert and oriented x3. ASSESSMENT 1. Atypical chest pain, troponin negative 3 appears more pleuritic and somewhat reproducible 2. History of pericarditis 3. History of atrial fibrillation 4. Hypertension PLAN Patient's pain appears more pleuritic with deep inspiration. Do not suspect acute coronary syndrome. There may be a component of pericarditis as he had similar presentation in 2018 however EKG only shows minimal P-R depression. Check 2-D echo. If 2-D echo is unrevealing patient may be discharged home from a cardiology standpoint. Would treat with NSAIDs and would defer colchicine unless EKG changes with more obvious pericarditis. Past Medical History Past Medical History: GERD/Reflux, Hypertension, Osteoarthritis (OA) Additional Past Medical History / Comment(s): chronic pain due to orthopedic problems, ddd, BULGING DISC,BENIGN COLON POLYP, COLITS WHEN YOUNGER, USED TO TAKE MEDS FOR CHOLESTEROL-NONE NOW."OCC HEARTBURN-TAKES TUMS" History of Any Multi-Drug Resistant Organisms: None Reported Past Surgical History: Hernia Repair, Orthopedic Surgery Additional Past Surgical History / Comment(s): 3 right and 3left shoulder s urgeries. EGD/COLONOSCOPY, 3 SX LT ANKLE-PLATE AND SCREW, 2ND SX TO REMOVED HEARD WEAR, 3RD SX FOR NEUROMA. HEMORRHOIDS, FISTUAL REPAIR Past Anesthesia/Blood Transfusion Reactions: No Reported Reaction Past Psychological History: Anxiety Smoking Status: Current every day smoker Past Alcohol Use History: Rare Past Drug Use History: Marijuana - Past Family History Father Family Medical History: No Reported History Mother History Unknown: Yes Medications and Allergies Home Medications Medication Instructions Recorded Confirmed Type ALPRAZolam [Xanax] 1 mg PO TID PRN 02/29/16 06/18/21 History atenoloL [Tenormin] 75 mg PO BID 02/29/16 06/18/21 History Atorvastatin Calcium [Lipitor] 10 mg PO DAILY 06/18/21 06/18/21 History busPIRone HCl [Buspar] 7.5 mg PO BID 06/18/21 06/18/21 History Allergies Allergy/AdvReac Type Severity Reaction Status Date / Time No Known Allergies Allergy Verified 06/18/21 07:32 Physical Exam Vitals: Vital Signs Temp Pulse Resp BP Pulse Ox 06/18/21 07:00 77 22 120/88 98 06/18/21 06:00 97.8 F 78 22 115/79 97 06/18/21 05:04 77 24 114/92 96 06/18/21 04:30 98.1 F 79 18 160/112 97 Intake and Output 06/17/21 06/18/21 06/18/21 23:59 06:59 14:59 Other: Weight Results 06/18/21 04:54 06/18/21 04:54 Cardiac Enzymes 06/18/21 06/18/21 06/18/21 Range/Units 04:54 04:54 09:21 AST 22 (17-59) U/L Troponin I <0.012 <0.012 (0.000-0.034) ng/mL 06/18/21 Range/Units Unknown AST (17-59) U/L Troponin I <0.012 (0.000-0.034) ng/mL Coagulation 06/18/21 Range/Units 04:54 PT 10.3 (9.0-12.0) sec APTT 23.6 (22.0-30.0) sec CBC 06/18/21 Range/Units 04:54 WBC 10.2 (3.8-10.6) k/uL RBC 5.67 (4.30-5.90) m/uL Hgb 17.9 H (13.0-17.5) gm/dL Hct 52.6 (39.0-53.0) % Plt Count 181 (150-450) k/uL Comprehensive Metabolic Panel 06/18/21 Range/Units 04:54 Sodium 136 L (137-145) mmol/L Potassium 4.3 (3.5-5.1) mmol/L Chloride 107 (98-107) mmol/L Carbon Dioxide 22 (22-30) mmol/L BUN 16 (9-20) mg/dL Creatinine 0.79 (0.66-1.25) mg/dL Glucose 123 H (74-99) mg/dL Calcium 9.0 (8.4-10.2) mg/dL AST 22 (17-59) U/L ALT 27 (4-49) U/L Alkaline Phosphatase 89 (38-126) U/L Total Protein 6.5 (6.3-8.2) g/dL Albumin 4.0 (3.5-5.0) g/dL Current Medications Generic Name Dose Route Start Last Admin Trade Name Freq PRN Reason Stop Dose Admin Aspirin 325 mg 06/19/21 09:00 Aspirin 325 Mg Tab PO DAILY SONAL Morphine Sulfate 4 mg 06/18/21 06:32 06/18/21 09:56 Morphine Sulfate 4 Mg/Ml Syringe IV 4 mg Q5M PRN Administration Chest Pain Nitroglycerin 0.4 mg 06/18/21 06:32 06/18/21 07:03 Nitroglycerin Sl Tabs 0.4 Mg Tab SUBLINGUAL 0.4 mg Q5M PRN Administration Chest Pain Intake and Output 06/17/21 06/18/21 06/18/21 23:59 06:59 14:59 Other: Weight 06/18/21 04:54 06/18/21 04:54
--- NOTE | 2021-06-18 17:16 | P.HPIM ---
History of Present Illness H&P Date: 06/18/21 Chief Complaint: Chest pain Patient is a 66-year-old male with a known history of hypertension, osteoarthritis, GERD, history of pericarditis in July 2018, anxiety, mariju mary use and everyday smoker presents to ER with the complaints of chest pain/tightness. Yesterday afternoon after he woke up from sleep he suddenly developed chest tightness and shortness of breath and unable to take deep breaths. Patient had similar symptoms when he had pericarditis about 2 years ago. Patient came to Hospital for evaluation. Denied any complaints of nausea vomiting or diaphoresis. associated with shortness of breath. Patient does have frequent headaches and does take Motrin at home. Denied any dizziness or lightheadedness. Denied any loss of consciousness. No leg swel ling. No cough is from production. No fever no chills. Chest x-ray showed no active cardiopulmonary disease. There is clearing of left pleural effusion compared to old exam. EKG showed normal sinus rhythm. Laboratory data showed WBC 10.2 hemoglobin 17.7, platelets 181 D-dimer is 0.62. On admission blood pressure 160/102 79 and respiration 18 and pulse ox 97% on room air. Review of Systems Constitutional: Patient denies any fever or chills . No generalized weakness or weight loss. Abdomen: Patient denied nausea vomiting and diarrhea and abdominal pain. Cardiovascular: Patient denies any chest pain or short of breath no palpitations. Chest pain with deep breathing.. Respiratory: patient denied any cough is from production. No shortness of breath Neurologic: Patient denied any numbness or tingling headache. Musculoskeletal: Patient denies any complaints of joint swelling or deformity. Skin: Negative Psychiatric: Negative Endocrine: No heat or cold intolerance. No recent weight gain. Genitourinary: No dysuria or hematuria. All other 14 point ROS negative except the above Past Medical History Past Medical History: GERD/Reflux, Hypertension, Osteoarthritis (OA) Additional Past Medical History / Comment(s): chronic pain due to orthopedic problems, ddd, BULGING DISC,BENIGN COLON POLYP, COLITS WHEN YOUNGER, USED TO TAKE MEDS FOR CHOLESTEROL-NONE NOW."OCC HEARTBURN-TAKES TUMS" History of Any Multi-Drug Resistant Organisms: None Reported Past Surgical History: Hernia Repair, Orthopedic Surgery Additional Past Surgical History / Comment(s): 3 right and 3left shoulder surgeries. EGD/COLONOSCOPY, 3 SX LT ANKLE-PLATE AND SCREW, 2ND SX TO REMOVED HEARD WEAR, 3RD SX FOR NEUROMA. HEMORRHOIDS, FISTUAL REPAIR Past Anesthesia/Blood Transfusion Reactions: No Reported Reaction Past Psychological History: Anxiety Smoking Status: Current every day smoker Past Alcohol Use History: Rare Past Drug Use History: Marijuana - Past Family History Father Family Medical History: No Reported History Mother History Unknown: Yes Medications and Allergies Home Medications Medication Instructions Recorded Confirmed Type ALPRAZolam [Xanax] 1 mg PO TID PRN 02/29/16 06/18/21 History atenoloL [Tenormin] 75 mg PO BID 02/29/16 06/18/21 History Atorvastatin Calcium [Lipitor] 10 mg PO DAILY 06/18/21 06/18/21 History busPIRone HCl [Buspar] 7.5 mg PO BID 06/18/21 06/18/21 History Allergies Allergy/AdvReac Type Severity Reaction Status Date / Time No Known Allergies Allergy Verified 06/18/21 07:32 Physical Exam Vitals: Vital Signs Temp Pulse Resp BP Pulse Ox 06/18/21 07:00 77 22 120/88 98 06/18/21 06:00 97.8 F 78 22 115/79 97 06/18/21 05:04 77 24 114/92 96 06/18/21 04:30 98.1 F 79 18 160/112 97 Intake and Output 06/17/21 06/18/21 06/18/21 23:59 06:59 14:59 Other: Weight PHYSICAL EXAMINATION: Patient is lying in the bed comfortably, no acute distress, awake alert and oriented.. HEENT: Normocephalic. Neck is supple. Pupils reactive. Nostrils clear. Oral cavity is moist. Neck reveals no JVD, carotid bruits, or thyromegaly. CHEST EXAMINATION: Trachea is central. Symmetrical expansion. Lung yanez clear to auscultation and percussion. CARDIAC: Normal S1, S2 with no gallops. No murmurs ABDOMEN: Soft. Bowel sounds normal. No organomegaly. No abdominal bruits. Extremities: reveal no edema. No clubbing or cyanosis Neurologically awake, alert, oriented x3 with well-coordinated movements. No focal deficits noted Skin: No rash or skin lesions. Psychiatric: Coperative. Nonsuicidal, anxious. Musculoskeletal: No joint swelling or deformity. Normal range of motion. Results CBC & Chem 7: 06/18/21 04:54 06/18/21 04:54 Labs: Abnormal Lab Results - Last 24 Hours (Table) 06/18/21 06/18/21 06/18/21 Range/Units 04:54 04:54 04:54 Hgb 17.9 H (13.0-17.5) gm/dL D-Dimer 0.62 H (<0.60) mg/L FEU Sodium 136 L (137-145) mmol/L Glucose 123 H (74-99) mg/dL Thrombosis Risk Factor Assmnt - DVT/VTE Prophylaxis DVT/VTE Prophylaxis: Pharmacologic Prophylaxis ordered Assessment and Plan Assessment: Atypical chest pain/tightness. Pleuritic in nature. Generalized anxiety History of pericarditis in 2018 Hypertension GERD Osteoarthritis Chronic pain/back pain Currently everyday smoker and occasional marijuana use DVT prophylaxis with heparin subcu Plan: Patient will be continued on telemetry monitoring. Troponin 1 negative. E[address] showed no ST-T wave changes or KS depression. Follow-up TSH level. D-dimer is 0.62. Will start on PPI due to history of [place] use for chronic headaches. Continue with home medications and follow closely. Cardiology is on board. 2-D echo cardiogram was ordered. Time with Patient: Greater than 30
[2021-06-18] MEDS: PANTOPRAZOLE 40 MG TABLET PO SCH (17:37)
[2021-06-18] MEDS ORDERED: IPRATROPIUM-ALBUTEROL 3 ML NEB INHALATION PRN (17:55)
[2021-06-18] MEDS ORDERED: KETOROLAC 15 MG/ML 1 ML VIAL IVP STA (17:56)
[2021-06-18] MEDS: busPIRone HCl 5 MG TAB PO SCH (20:45)
[2021-06-18] MEDS: atenoloL 25 MG TAB PO SCH (20:46)
[2021-06-19] MEDS: MORPHINE SULFATE 4 MG/ML SYRINGE IV PRN ×2 (02:33→07:12)
[2021-06-19 08:31] VITALS: TEMP 98.2
[2021-06-19] MEDS ORDERED: ATORVASTATIN 10 MG TAB PO SCH (09:00)
[2021-06-19] MEDS ORDERED: ASPIRIN 325 MG TAB PO SCH (09:00)
[2021-06-19] MEDS ORDERED: ASPIRIN 81 MG PO SCH (09:00)
[2021-06-19] MEDS: busPIRone HCl 5 MG TAB PO SCH (09:08)
[2021-06-19] MEDS: atenoloL 25 MG TAB PO SCH (09:08)
[2021-06-19] MEDS: PANTOPRAZOLE 40 MG TABLET PO SCH (09:09)
--- NOTE | 2021-06-19 11:05 | P.PN ---
Subjective Patient is a pleasant 66-year-old male with a history of pericarditis 2018, prior atrial fibrillation around time of pericarditis, hypertension, who presents secondary to new-onset of chest pain and discomfort over the last 24 hours. Patient does feel somewhat similar to his prior episode from 2018 when he initially had more pleuritic type symptoms with deep inspiration however that was also having pericarditis type symptoms improved with sitting up. He states the pain felt similar and is mainly associated with deep inspiration. He had been treated with colchicine in 2018 and this had resolved. Patient seen and examined at bedside, his chest pain had significantly improved. He still feels the chest pain when he takes with deep inspiration. Labs reviewed, White blood cell 10.2 hemoglobin 17.9, d-dimer 0.62, creatinine 0.79, troponin negative 3, proBNP 343, EKG normal sinus rhythm, no significant ST or T wave abnormalities, minimal P-R depressions in 2, 3, aVF. Is currently maintained on aspirin milligrams daily, atenolol 25 mg twice a day, atorvastatin 10 mg daily. PHYSICAL EXAMINATION Vital signs reviewed. CONSTITUTIONAL: No apparent distress. HEENT: Neck Supple. No JVD. CHEST EXAMINATION: Lungs are clear to auscultation. HEART EXAMINATION: Regular rate and rhythm. S1, S2 heard. No murmurs, gallops or rub. ABDOMEN: Soft, nontender. Positive bowel sounds. EXTREMITIES: 2+ peripheral pulses, no lower extremity edema and no calf tenderness. NEUROLOGIC EXAMINATION: Patient is awake, alert and oriented x3. ASSESSMENT Atypical chest pain, troponin negative 3 appears more pleuritic and somewhat reproducible History of pericarditis History of atrial fibrillation Hypertension PLAN Patient's pain appears more pleuritic with deep inspiration. Do not suspect acute coronary syndrome. There may be a component of pericarditis. 2D echocardiogram ordered. If 2-D echo is unrevealing patient may be discharged home from a cardiology standpoint. Would treat with NSAIDs and would defer colchicine unless EKG changes with more obvious pericarditis. Recommend follow up as an outpatient. Objective - Vital Signs Vital signs: Vital Signs Temp 98.2 F 06/19/21 07:25 Pulse 70 06/19/21 07:25 Resp 17 06/19/21 07:25 BP 141/79 06/19/21 07:25 Pulse Ox 94 L 06/19/21 07:25 Intake & Output 06/18/21 06/19/21 06/19/21 18:59 06:59 18:59 Weight 113.398 kg Other: # Voids 2 - Labs CBC & Chem 7: 06/18/21 04:54 06/18/21 04:54
[2021-06-19 11:12] LABS: African American GFR (CKD) 103.5 (60.0-200.0); Anion Gap 13.3 mmol/L (4.00-12.00); BUN/Creat Ratio 18.22 Ratio (12.00-20.00); Blood Urea Nitrogen 16.4 mg/dL (9.0-27.0); Calcium 8.5 mg/dL (8.7-10.3); Carbon Dioxide 21.7 mmol/L (21.6-31.8); Chol/HDL Ratio 3.35 Ratio; HDL Cholesterol 38.2 mg/dL (40.00-60.00); LDL Cholesterol,Calculated 74.6 mg/dL (0.0-131.0); Non-African American GFR(CKD) 89.3 (60.0-200.0); Potassium 4.2 mmol/L (3.5-5.5); Triglycerides 76.2 mg/dL (0.00-149.00); VLDL Calculation 15.24 mg/dL (5.00-40.00)
[2021-06-19 15:27] VITALS: BP 126/74; PULSE 72; RESP 16
--- NOTE | 2021-06-19 18:49 | P.DS ---
Providers Date of admission: 06/18/21 06:32 Expected date of discharge: 06/19/21 Attending physician: Garrett Champion Consults: 06/18/21 06:32 Consult Physician Routine Consulting Provider: Raji Davey Consult Reason/Comments: chest pain Do you want consulting provider notified?: Yes Primary care physician: [facility] Course: Presenting complaint: Chest pain History of presenting complaint: Patient presented with central pain worse with deep breathing. Not related to activity. EKG showed nonspecific T-wave changes. Troponins are negative. Today: Symptoms much improved. Seen by cardiology. Cleared for discharge. 2-D echo results are pending. Patient up and about. Consultation: Dr. Richard from cardiology On exam: 98.272, 16, 127% 4, 96% room air Lungs: Clear Cardiovascular first seconds are normal Psychiatry: AO 3, mood and affect normal Investigations: White count 10.2 hemoglobin 7.9 potassium 4.2 creatinine 0.9 Troponin I 3 negative LDL 74 EKG tracing sinus rhythm: Nonspecific T-wave changes 2-D echocardiogram results pending. Assessment and plan: -Possible mild pericarditis. Likely viral. Better Patient is already doing much better. No medications -GERD Pepcid 20 mg twice a day -Essential hypertension Tenormin 25 mg twice a day -Hyperlipidemia Lipitor 10 mg daily -Primary osteoarthritis Pain medications as needed -Anxiety BuSpar 7.5 mg twice a day Disposition: Home Plan - Discharge Summary Discharge Rx Participant: Yes New Discharge Prescriptions: New Famotidine [Pepcid] 20 mg PO BID #60 tablet Continue atenoloL [Tenormin] 75 mg PO BID ALPRAZolam [Xanax] 1 mg PO TID PRN PRN Reason: Anxiety busPIRone HCl [Buspar] 7.5 mg PO BID Atorvastatin Calcium [Lipitor] 10 mg PO DAILY Discharge Medication List ALPRAZolam [Xanax] 1 mg PO TID PRN 02/29/16 [History] atenoloL [Tenormin] 75 mg PO BID 02/29/16 [History] Atorvastatin Calcium [Lipitor] 10 mg PO DAILY 06/18/21 [History] busPIRone HCl [Buspar] 7.5 mg PO BID 06/18/21 [History] Famotidine [Pepcid] 20 mg PO BID #60 tablet 06/19/21 [Rx] Follow up Appointment(s)/Referral(s): Delonte Catherine DO [Primary Care Provider] - 1-2 days Shawn Gu DO [STAFF PHYSICIAN] - 06/30/21 1:30 pm Patient Instructions/Handouts: Chest Pain (DC), Pleurisy (DC) Activity/Diet/Wound Care/Special Instructions: dc if ok with carduiology Discharge Disposition: HOME SELF-CARE
--- NOTE | 2021-06-20 09:43 | ECHOF ---
Referral Reason:chest pain, previous effusion MEASUREMENTS -------- HEIGHT: 180.3 cm WEIGHT: 113.4 kg BP: RVIDd: 3.5 cm (< 3.3) IVSd: 1.0 cm (0.6 - 1.1) LVIDd: 4.9 cm (3.9 - 5.3) LVPWd: 1.2 cm (0.6 - 1.1) IVSs: 1.7 cm LVIDs: 3.3 cm LVPWs: 1.3 cm LAESV Index (A-L): 25.32 ml/m Ao Diam: 3.4 cm (2.0 - 3.7) AV Cusp: 2.1 cm (1.5 - 2.6) LA Diam: 3.7 cm (2.7 - 3.8) MV EXCURSION: 14.056 mm (> 18.000) MV EF SLOPE: 153 mm/s (70 - 150) EPSS: 0.6 cm MV E Malcom: 0.90 m/s MV DecT: 212 ms MV A Malcom: 0.52 m/s MV E/A Ratio: 1.72 RAP: 5.00 mmHg RVSP: 8.66 mmHg FINDINGS -------- Sinus rhythm. This was a technically difficult study with suboptimal views. The left ventricular size is normal. There is mild concentric left ventricular hypertrophy. Overa ll left ventricular systolic function is low-normal with, an EF between 50 - 55 %. The right ventricle is mildly enlarged. Normal LA size by volume 22+/-6 ml/m2. The right atrial size is normal. Lumason used The aortic valve is trileaflet, and appears structurally normal. No aortic stenosis or regurgitation. The mitral valve is normal. There is trace to mild mitral regurgitation. The tricuspid valve appears structurally normal. Mild tricuspid regurgitation present. Right vent ricular systolic pressure is normal at < 35 mmHg. There is no pulmonic regurgitation present. The aortic root size is normal. IVC Not well visulized. There is no pericardial effusion. CONCLUSIONS -------- 1. There is mild concentric left ventricular hypertrophy. 2. Overall left ventricular systolic function is low-normal with, an EF between 50 - 55 %. 3. The right ventricle is mildly enlarged. 4. Normal LA size by volume 22+/-6 ml/m2. 5. The aortic valve is trileaflet, and appears structurally normal. No aortic stenosis or regurgitati on. 6. There is trace to mild mitral regurgitation. 7. Mild tricuspid regurgitation present. 8. There is no pericardial effusion. FRONT EDGER: Aminah Quinteros RDCS
== END 2021-06-19 17:30 | disposition home or self-care (01) ==
LOC: EC 04:25 → INTOOBSV 06:32 → 6NMEDSUR 06:32
PROVIDERS: ADMIT Hospitalist; ATTEND Hospitalist
DX: R07.2 Precordial pain (principal); R06.02 Shortness of breath; K21.9 Gastro-esophageal reflux disease without esophagitis; I10 Essential (primary) hypertension; I36.1 Nonrheumatic tricuspid (valve) insufficiency; M19.91 Primary osteoarthritis, unspecified site; G89.29 Other chronic pain; F17.200 Nicotine dependence, unspecified, uncomplicated; E78.5 Hyperlipidemia, unspecified; F41.1 Generalized anxiety disorder; I48.91 Unspecified atrial fibrillation; F12.90 Cannabis use, unspecified, uncomplicated; Z79.82 Long term (current) use of aspirin; Z79.899 Other long term (current) drug therapy; Z86.010 Personal history of colon polyps; Z87.19 Personal history of other diseases of the digestive system; Z86.69 Personal history of other diseases of the nervous system and sense organs; Z87.81 Personal history of (healed) traumatic fracture
CPT/HCPCS: 99285; 96376 ×2; 96375; 96374; 36415; 93005; 85379; 83880; 80061; 80053; 80048; 85652; 84443; 83735; 84484; 85025; 85610; 85730; 87635; 71046; G0378 ×2; C8929; J2270 ×2; J1885; Q9950; 93306

== ENCOUNTER → 2022-08-02 | Outpatient (CLI) | payer BC, MEDICARE ==
[2022-08-02 14:41] LABS: African American GFR (CKD) >90 (>60 ml/min/1.73 sqM); Blood Urea Nitrogen 19 mg/dL (9-20); Non-African American GFR(CKD) 78 (>60 ml/min/1.73 sqM)
--- NOTE | 2022-08-02 16:08 | CT ---
EXAMINATION TYPE: CT urogram wo/w con DATE OF EXAM: 08/02/2022 COMPARISON: 10/12/2016 HISTORY: GROSS HEMATURIA CT DLP: 4102 mGycm CONTRAST: Performed and without and with IV Contrast, patient injected with 100 mL of Isovue 300. CT Urography was performed with unenhanced followed by enhanced images of the kidneys, ureters and ur inary bladder. Delayed images were obtained. 3d reconstruction was performed at a separate work sta tion. FINDINGS: KIDNEYS/BLADDER: There is infiltrative mass upper pole left kidney compatible with renal cell carcino ma measuring approximately 5.6 x 7 cm. I cannot exclude left renal vein tumoral infiltration. The rig ht kidney is unremarkable. No evidence for hydronephrosis or nephrolithiasis. LUNG BASES-: No visible nodule. No infiltrate. LIVER/GB: No calcified gallstones. Small hepatic cysts are stable. Biliary tree is of normal calibe r. PANCREAS: No inflammation. No distinct mass. SPLEEN: No splenic enlargement. No lesion seen. ADRENALS: No nodule. No thickening. BOWEL: Normal appendix. Normal bowel caliber. No inflammation. GENITAL ORGANS: No gross abnormality. LYMPH NODES: No greater than 1cm abdominal or pelvic lymph nodes are appreciated. AORTA: No significant abnormality. OSSEOUS STRUCTURES: No significant abnormality is seen. OTHER: No significant additional abnormality is seen. IMPRESSION: 1. 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
== END | disposition home or self-care (01) ==
LOC: RADCTMAIN 13:57
PROVIDERS: ATTEND Urology
DX: C64.2 Malignant neoplasm of left kidney, except renal pelvis (principal); R31.0 Gross hematuria
CPT/HCPCS: 82565; 84520; 74178; 36415; 74400; Q9967

== ENCOUNTER → 2022-08-10 | Outpatient (CLI) | payer MEDICARE ==
--- NOTE | 2022-08-10 14:32 | CT ---
Exam: CT Chest with contrast. Date: . Comparison: 07/13/2018. History: Left renal cell carcinoma. Technique: CT examination of the chest was performed following the intravenous administration of 70 m L of Isovue-300. Coronal and sagittal reformats were performed. CT dose lowering techniques were use d, to include: automated exposure control, adjustment for patient size, and/or use of iterative recon struction. FINDINGS: Mediastinum and Radha: There is no axillary, mediastinal or hilar lymphadenopathy. Pleural and Pericardial spaces: There are no pleural or pericardial effusions. Upper Abdomen: Cysts are seen within the liver as well as subcentimeter hypodensities are too small t o fully characterize. Small metastatic lesions would be difficult to exclude. Infiltrative left renal cell carcinoma is unchanged from the recent CT urogram on 08/02/2022 and is not entirely included on this examination. Please see prior report for further details of the abdominal findings. Cardiovascular: The thoracic aorta is normal in size without evidence of aneurysm or dissection. Pulmonary Artery: There are no central pulmonary arterial abnormalities. The examination was not per formed to evaluate for pulmonary embolism. Lung Parenchyma and Airways: The lungs are clear. Bones: The visualized right shoulder arthroplasty is noted. There is an approximately 5 mm area of milton cency within the inferior aspect of the right scapula of indeterminate significance. A small lytic me tastasis would be difficult to exclude as this was not seen on the previous examination. IMPRESSION: 1. 5 mm area of lucency within the inferior aspect of the right scapula of indeterminate significance . Could represent a small lytic metastasis as this was not seen on the previous examination. 2. There is a visualized infiltrative renal mass on the left side which was better evaluated on the C T urogram of 08/02/2022. Please see prior report for further details of the abdominal findings. 3. No definitive evidence of pulmonary metastasis on this examination.
== END | disposition home or self-care (01) ==
LOC: RADCTMAIN 13:26
PROVIDERS: ATTEND Urology
DX: C64.2 Malignant neoplasm of left kidney, except renal pelvis (principal)
CPT/HCPCS: 82565; 84520; 71260; Q9967

== ENCOUNTER → 2022-08-24 | Outpatient (CLI) | payer MEDICARE ==
--- NOTE | 2022-08-24 15:22 | NM ---
EXAMINATION TYPE: NM bone scan whole body DATE OF EXAM: 08/24/2022 COMPARISON: CT chest 08/10/2022, CT urogram 08/02/2022. HISTORY: CA 64.2 left renal cancer Delayed whole-body scanning was performed following the injection of 22.7 mCi Tc 99m MDP. Images acq uired 3 hours post injection. FINDINGS: No abnormal uptake is identified within the appendicular or axial skeleton to suggest metastatic dise ase. There is increased uptake within the bilateral shoulder, sternoclavicular, and sacroiliac joints con sistent with degenerative changes. Photopenic area within the right proximal humerus corresponding to right shoulder prosthesis. No other photopenic areas or areas of increased activity are identified. Physiologic radiotracer activity is demonstrated in the kidneys and bladder. IMPRESSION: Nothing to suggest metastatic disease.
== END | disposition home or self-care (01) ==
LOC: RADNMMAIN 10:19
PROVIDERS: ATTEND Urology
DX: C64.2 Malignant neoplasm of left kidney, except renal pelvis (principal)
CPT/HCPCS: 78306; A9503

== ENCOUNTER → 2022-08-27 | Outpatient (CLI) | payer MEDICARE ==
--- NOTE | 2022-08-28 06:57 | MR ---
EXAMINATION TYPE: MR abdomen wo/w con DATE OF EXAM: 08/27/2022 COMPARISON: CT scan 08/02/2022 HISTORY: Cyst on left kidney CONTRAST: Standard multiplanar, multisequence MRI departmental protocol images were obtained without contrast a nd with 10 mL intravenous Gadavist gadolinium contrast. There are numerous variable sized cysts throughout the liver. The largest is in the inferior right lo be and measures 3.5 cm. The bile ducts are not dilated. The spleen is intact. Liver has normal size. There is no evidence of pancreatic mass. The pancreatic duct appears normal. The stomach is intact. There is no adrenal mass. There is a large irregular lobulated mass involving upper pole of the left kidney measuring 6.5 cm. There is mixed signal pattern with areas of decreased signal that could be h emosiderin. The contrast images show a heterogeneous pathologic enhancement pattern. The right kidney shows fairly normal enhancement. There is no hydronephrosis. No sign of retroperitoneal adenopathy. Left renal vein appears normal. There is no ascites. No evidence of a bowel obstruction. Lung bases s how no evidence of pleural effusion. IMPRESSION: Complex mass in the upper pole left kidney shows enhancement and suspicious for malignancy. The size is not significantly different than in CT scan of 08/02/2022. Normal right kidney. Multiple hepatic cysts.
== END | disposition home or self-care (01) ==
LOC: RADMRIMAIN 19:57
PROVIDERS: ATTEND Urology
DX: D41.02 Neoplasm of uncertain behavior of left kidney (principal); K76.89 Other specified diseases of liver
CPT/HCPCS: 74183; A9585

== ENCOUNTER 2022-08-29 07:06 | Emergency (ER) | payer MEDICARE ==
[2022-08-29 07:23] VITALS: TEMP 97.8
[2022-08-29] MEDS ORDERED: SODIUM CHLORIDE 0.9% 1,000 ML IV STA (07:43)
[2022-08-29] MEDS ORDERED: MORPHINE SULFATE 4 MG/ML SYRINGE IV STA ×2 (08:10→09:10)
[2022-08-29 08:28] VITALS: RESP 18
[2022-08-29] MEDS ORDERED: SODIUM CHLORIDE 0.9% IRRIG 3,000 ML BAG IRRIGATION STA (08:32)
[2022-08-29 08:46] LABS: Albumin 3.3 g/dL (3.5-5.0); Calcium 8.2 mg/dL (8.4-10.2); Potassium 4.8 mmol/L (3.5-5.1); Total Bilirubin 0.8 mg/dL (0.2-1.3); Total Protein 5.6 g/dL (6.3-8.2)
[2022-08-29 08:50] LABS: Partial Thromboplastin Time 23.5 sec (22.0-30.0); Prothrombin Time 10.2 sec (9.0-12.0)
[2022-08-29 09:10] LABS: Bacteria,Urine Many /hpf; Mucus,Urine Many /hpf; RBC,Urine >182 /hpf (0-5); WBC,Urine 177 /hpf (0-5)
[2022-08-29 09:11] LABS: Appearance,Urine Bloody (Clear)
[2022-08-29 09:12] LABS: Color,Urine Dark Red
--- NOTE | 2022-08-29 09:42 | XR ---
EXAMINATION TYPE: XR KUB DATE OF EXAM: 08/29/2022 Comparison: 10/12/2016 Clinical History: 67-year-old male abdominal pain, history of left kidney tumor scheduled for resecti on. Findings: Pelvic phleboliths. Some prominent small bowel loops distended up to 4.2 cm in the left side of the a bdomen. Scattered colonic air is present however. No significant stool burden. No suspicious calcific ation otherwise apparent radiographically. Supine imaging limited for assessment of free air. Impression: Overall nonobstructive bowel gas pattern. However, a couple distended small bowel loops measure up to 4.2 cm. Consider regional ileus or enteritis. Follow-up can be performed.
[2022-08-29 09:45] LABS: Basophils % (A) 0 %; Eosinophils # (A) 0.1 k/uL (0-0.7); Eosinophils % (A) 1 %; HCT 43.9 % (39.0-53.0); HGB 15.4 gm/dL (13.0-17.5); Lymphocytes # (A) 1.2 k/uL (1.0-4.8); Lymphocytes % (A) 13 %; MCH 32.5 pg (25.0-35.0); MCHC 35.1 g/dL (31.0-37.0); MCV 92.6 fL (80.0-100.0); Mean Platelet Volume 8.3; Monocytes # (A) 0.5 k/uL (0-1.0); Monocytes % (A) 6 %; Neutrophils # (A) 7.1 k/uL (1.3-7.7); Neutrophils % (A) 79 %; Platelet Count 174 k/uL (150-450); RBC 4.74 m/uL (4.30-5.90); RDW 14.3 % (11.5-15.5)
--- NOTE | 2022-08-29 10:53 | ED ---
Abdominal Pain HPI - General Chief Complaint: Abdominal Pain Stated Complaint: Difficulty Urinating, Blood in urine, Kidney Tumor Time Seen by Provider: 08/29/22 07:29 Source: patient Mode of arrival: ambulatory Limitations: no limitations - History of Present Illness Initial Comments: Patient presents with hematuria. He has a history of a tumor on the left kidney. He does have intermittent hematuria but no dysuria. He has no belly or back pain. He has no chest pain or shortness of breath. He has no fevers or chills. He had trouble passing urine earlier today. He did ultimately passed some clots and is feeling a little better and came to the [facility] for evaluation. - Related Data Home Medications Medication Instructions Recorded Confirmed ALPRAZolam [Xanax] 1 mg PO TID PRN 02/29/16 08/29/22 atenoloL [Tenormin] 75 mg PO BID 02/29/16 08/29/22 Atorvastatin Calcium [Lipitor] 10 mg PO HS 06/18/21 08/29/22 Cholecalciferol (Vitamin D3) 75 mcg PO DAILY 08/29/22 08/29/22 [Vitamin D3 (3000 Iu)] Ferrous Sulfate [Feosol] 325 mg PO DAILY 08/29/22 08/29/22 Multivitamins, Thera [Multivitamin 1 tab PO DAILY 08/29/22 08/29/22 (formulary)] Allergies Allergy/AdvReac Type Severity Reaction Status Date / Time No Known Allergies Allergy Verified 08/29/22 10:07 Review of Systems ROS Statement: Those systems with pertinent positive or pertinent negative responses have been documented in the HPI. ROS Other: All systems not noted in ROS Statement are negative. Past Medical History Past Medical History: GERD/Reflux, Hypertension, Osteoarthritis (OA) Additional Past Medical History / Comment(s): chronic pain due to orthopedic problems, ddd, BULGING DISC,BENIGN COLON POLYP, COLITS WHEN YOUNGER, USED TO TAKE MEDS FOR CHOLESTEROL-NONE NOW."OCC HEARTBURN-TAKES TUMS" History of Any Multi-Drug Resistant Organisms: None Reported Past Surgical History: Hernia Repair, Orthopedic Surgery Additional Past Surgical History / Comment(s): 3 right and 3left shoulder surgeries. EGD/COLONOSCOPY, 3 SX LT ANKLE-PLATE AND SCREW, 2ND SX TO REMOVED HEARD WEAR, 3RD SX FOR NEUROMA. HEMORRHOIDS, FISTUAL REPAIR Past Anesthesia/Blood Transfusion Reactions: No Reported Reaction Past Psychological History: Anxiety Smoking Status: Current every day smoker Past Alcohol Use History: Rare Past Drug Use History: Marijuana - Past Family History Father Family Medical History: No Reported History Mother History Unknown: Yes General Exam Limitations: no limitations General appearance: alert, in no apparent distress Head exam: Present: atraumatic, normocephalic, normal inspection Eye exam: Present: normal appearance, PERRL, EOMI. Absent: scleral icterus, conjunctival injection, periorbital swelling ENT exam: Present: normal exam, mucous membranes moist Neck exam: Present: normal inspection. Absent: tenderness, meningismus, lymphadenopathy Respiratory exam: Present: normal lung sounds bilaterally. Absent: respiratory distress, wheezes, rales, rhonchi, stridor Cardiovascular Exam: Present: regular rate, normal rhythm, normal heart sounds. Absent: systolic murmur, diastolic murmur, rubs, gallop, clicks GI/Abdominal exam: Present: soft, normal bowel sounds. Absent: distended, tenderness, guarding, rebound, rigid Extremities exam: Present: normal inspection, full ROM, normal capillary refill. Absent: tenderness, pedal edema, joint swelling, calf tenderness Back exam: Present: normal inspection Neurological exam: Present: alert, oriented X3, CN II-XII intact Psychiatric exam: Present: normal affect, normal mood Skin exam: Present: warm, dry, intact, normal color. Absent: rash Course Vital Signs 08/29/22 08/29/22 07:20 08:00 Temperature 97.8 F Pulse Rate 77 88 Respiratory 20 18 Rate Blood Pressure 141/89 134/90 O2 Sat by Pulse 97 98 Oximetry Medical Decision Making - Medical Decision Making Patient presents with hematuria. A Caicedo catheter is placed by nursing. Three- way irrigation is performed. The urine is now running clear. I obtained laboratory studies which are interpreted by me as normal lites and kidney fun ctioning. There is no evidence of infectious process. I administered the patient 1 L normal saline IV bolus for rehydration. I had a discussion with the patient's urologist over the phone. He agrees with outpatient management at this time and discontinuation of the Caicedo prior to discharge. Was pt. sent in by a medical professional or institution (, PA, [facility], urgent care, hospital, or halfway...) When possible be specific @ -[No] Did you speak to anyone other than the patient for history (EMS, parent, family, police, friend...)? What history was obtained from this source @ -[No] Did you review nursing and triage notes (agree or disagree)? Why? @ -[I reviewed and agree with nursing and triage notes] Were old charts reviewed (outside hosp., previous admission, EMS record, old EKG, old radiological studies, urgent care reports/EKG's, halfway records)? Report findings @ -[No old charts were reviewed] Differential Diagnosis (chest pain, altered mental status, abdominal pain women, abdominal pain men, vaginal bleeding, weakness, fever, dyspnea, syncope, headache, dizziness, GI bleed, back pain, seizure, CVA, palpatations, mental health)? @ -[not applicable] EKG interpreted by me (3pts min.). @ -[As above] X-rays interpreted by me (1pt min.). @ -Showing no evidence of bowel obstruction or perforation CT interpreted by me (1pt min.). @ -[None done] U/S interpreted by me (1pt. min.). @ -[None done] What testing was considered but not performed or refused? (CT, X-rays, U/S, labs)? Why? @ -I considered a CT of the abdomen, however the patient has no tenderness to suggest acute surgical pathology. Additionally the patient had recent imaging. What meds were considered but not given or refused? Why? @ -[None] Did you discuss the management of the patient with other professionals (professionals i.e. , PA, [facility], lab, RT, psych nurse, social media marketing specialist, molecular biology director, teacher, engineering officer, renal case manager)? Give summary @ -[No] Was smoking cessation discussed for >3mins.? @ -[No] Was critical care preformed (if so, how long)? @ -[No] Were there social determinants of health that impacted care today? How? (Homelessness, low income, unemployed, alcoholism, drug addiction, transportation, low edu. Level, literacy, decrease access to med. care, skilled nursing, rehab)? @ -[No] Was there de-escalation of care discussed even if they declined (Discuss DNR or withdrawal of care, Hospice)? DNR status @ -[No] What co-morbidities impacted this encounter? (DM, HTN, Smoking, COPD, CAD, Cancer, CVA, ARF, Chemo, Hep., AIDS, mental health diagnosis, sleep apnea, morbid obesity)? @ -Patient has left kidney cancer Was patient admitted / discharged? Hospital course, mention meds given and route, prescriptions, significant lab abnormalities, going to OR and other pertinent info. @ -[hospital course] Undiagnosed new problem with uncertain prognosis? @ -[No] Drug Therapy requiring intensive monitoring for toxicity (Heparin, Nitro, Insulin, Cardizem)? @ -[No] Were any procedures done? @ -[No] Diagnosis/symptom? @ -[default] Acute, or Chronic, or Acute on Chronic? @ -[default] Uncomplicated (without systemic symptoms) or Complicated (systemic symptoms)? @ -[default] Side effects of treatment? @ -[No] Exacerbation, Progression, or Severe Exacerbation? @ -[No] Poses a threat to life or bodily function? How? (Chest pain, [place], [place], pneumonia, PE, COPD, DKA, ARF, appy, cholecystitis, CVA, Diverticulitis, Homicidal, Suicidal, threat to staff... and all critical care pts) @ -[No] - Lab Data Result diagrams: 08/29/22 08:25 08/29/22 08:25 Lab Results 08/29/22 08/29/22 08/29/22 Range/Units 08:25 08:25 08:25 WBC 9.0 (3.8-10.6) k/uL RBC 4.74 (4.30-5.90) m/uL Hgb 15.4 (13.0-17.5) gm/dL Hct 43.9 (39.0-53.0) % MCV 92.6 (80.0-100.0) fL MCH 32.5 (25.0-35.0) pg MCHC 35.1 (31.0-37.0) g/dL RDW 14.3 (11.5-15.5) % Plt Count 174 (150-450) k/uL MPV 8.3 Neutrophils % 79 % Lymphocytes % 13 % Monocytes % 6 % Eosinophils % 1 % Basophils % 0 % Neutrophils # 7.1 (1.3-7.7) k/uL Lymphocytes # 1.2 (1.0-4.8) k/uL Monocytes # 0.5 (0-1.0) k/uL Eosinophils # 0.1 (0-0.7) k/uL Basophils # 0.0 (0-0.2) k/uL PT 10.2 (9.0-12.0) sec INR 1.0 (<1.2) APTT 23.5 (22.0-30.0) sec Sodium (137-145) mmol/L Potassium (3.5-5.1) mmol/L Chloride (98-107) mmol/L Carbon Dioxide (22-30) mmol/L Anion Gap mmol/L BUN (9-20) mg/dL Creatinine (0.66-1.25) mg/dL Est GFR (CKD-EPI)AfAm (>60 ml/min/1.73 sqM) Est GFR (CKD-EPI)NonAf (>60 ml/min/1.73 sqM) Glucose (74-99) mg/dL Calcium (8.4-10.2) mg/dL Total Bilirubin (0.2-1.3) mg/dL AST (17-59) U/L ALT (4-49) U/L Alkaline Phosphatase (38-126) U/L Total Protein (6.3-8.2) g/dL Albumin (3.5-5.0) g/dL Lipase (23-300) U/L Urine Color Dark Red Urine Appearance Bloody (Clear) Urine RBC >182 H (0-5) /hpf Urine WBC 177 H (0-5) /hpf Urine Bacteria Many H (None) /hpf Urine Mucus Many H (None) /hpf 08/29/22 Range/Units 08:25 WBC (3.8-10.6) k/uL RBC (4.30-5.90) m/uL Hgb (13.0-17.5) gm/dL Hct (39.0-53.0) % MCV (80.0-100.0) fL MCH (25.0-35.0) pg MCHC (31.0-37.0) g/dL RDW (11.5-15.5) % Plt Count (150-450) k/uL MPV Neutrophils % % Lymphocytes % % Monocytes % % Eosinophils % % Basophils % % Neutrophils # (1.3-7.7) k/uL Lymphocytes # (1.0-4.8) k/uL Monocytes # (0-1.0) k/uL Eosinophils # (0-0.7) k/uL Basophils # (0-0.2) k/uL PT (9.0-12.0) sec INR (<1.2) APTT (22.0-30.0) sec Sodium 136 L (137-145) mmol/L Potassium 4.8 (3.5-5.1) mmol/L Chloride 107 (98-107) mmol/L Carbon Dioxide 24 (22-30) mmol/L Anion Gap 5 mmol/L BUN 15 (9-20) mg/dL Creatinine 1.08 (0.66-1.25) mg/dL Est GFR (CKD-EPI)AfAm 82 (>60 ml/min/1.73 sqM) Est GFR (CKD-EPI)NonAf 71 (>60 ml/min/1.73 sqM) Glucose 102 H (74-99) mg/dL Calcium 8.2 L (8.4-10.2) mg/dL Total Bilirubin 0.8 (0.2-1.3) mg/dL AST 19 (17-59) U/L ALT 21 (4-49) U/L Alkaline Phosphatase 59 (38-126) U/L Total Protein 5.6 L (6.3-8.2) g/dL Albumin 3.3 L (3.5-5.0) g/dL Lipase 45 (23-300) U/L Urine Color Urine Appearance (Clear) Urine RBC (0-5) /hpf Urine WBC (0-5) /hpf Urine Bacteria (None) /hpf Urine Mucus (None) /hpf Disposition Clinical Impression: Hematuria Disposition: HOME SELF-CARE Condition: Good Instructions (If sedation given, give patient instructions): Hematuria (ED) Is patient prescribed a controlled substance at d/c from ED?: No When asked, does pt state using other controlled substances?: No Referrals: Delonte Catherine DO [Primary Care Provider] - 1-2 days Jack Dunbar MD [STAFF PHYSICIAN] - 1-2 days
[2022-08-29 11:16] VITALS: BP 126/74; PULSE 72
== END 2022-08-29 11:16 | disposition home or self-care (01) ==
LOC: EC 07:06
DX: R31.9 Hematuria, unspecified (principal); K21.9 Gastro-esophageal reflux disease without esophagitis; I10 Essential (primary) hypertension; M19.90 Unspecified osteoarthritis, unspecified site; F41.9 Anxiety disorder, unspecified; F17.200 Nicotine dependence, unspecified, uncomplicated; F12.90 Cannabis use, unspecified, uncomplicated
CPT/HCPCS: 36415; 80053; 83690; 85025; 85610; 85730; 81001; 87086; 74018; 99284; 96374; 96376; 96361 ×2; 51702; J2270

== ENCOUNTER → 2022-09-13 | Outpatient (CLI) | payer MEDICARE ==
[2022-09-13 18:19] LABS: Basophils # (A) 0.04 X 10*3/uL (0.00-0.10); Basophils % (A) 0.6 %; Eosinophils # (A) 0.19 X 10*3/uL (0.04-0.35); Eosinophils % (A) 2.7 %; HCT 48.2 % (39.6-50.0); HGB 15.4 g/dL (13.0-17.0); Immature Grans, Automated 0.4 %; Lymphocytes # (A) 1.58 X 10*3/uL (0.90-5.00); Lymphocytes % (A) 22.5 %; MCH 30.9 pg (27.0-32.0); MCV 96.6 fL (80.0-97.0); Mean Platelet Volume 10.4 fL (9.5-12.2); Monocytes # (A) 0.61 X 10*3/uL (0.20-1.00); Monocytes % (A) 8.7 %; NRBC Per 100 WBC 0 /100 WBCS (0.0-0.0); Neutrophils # (A) 4.58 X 10*3/uL (1.80-7.70); Neutrophils % (A) 65.1 %; Platelet Count 234 X 10*3/uL (140-440); RBC 4.99 X 10*6/uL (4.40-5.60); RDW 14.2 % (11.5-14.5); WBC 7.03 X 10*3/uL (4.50-10.00)
[2022-09-13 18:42] LABS: African American GFR (CKD) 74.1 (60.0-200.0); Albumin 4.1 g/dL (3.8-4.9); Albumin/Globulin Ratio 2.08 (1.60-3.17); Anion Gap 10.1 mmol/L (10.00-18.00); BUN/Creat Ratio 14.15 Ratio (12.00-20.00); Blood Urea Nitrogen 16.7 mg/dL (9.0-27.0); Calcium 9.5 mg/dL (8.7-10.3); Carbon Dioxide 28.4 mmol/L (20.0-27.5); Non-African American GFR(CKD) 63.9 (60.0-200.0); Total Bilirubin 0.4 mg/dL (0.30-1.20)
== END | disposition home or self-care (01) ==
LOC: LABPAT 09:45
PROVIDERS: ATTEND Urology
DX: Z01.812 Encounter for preprocedural laboratory examination (principal); D41.02 Neoplasm of uncertain behavior of left kidney
CPT/HCPCS: 80053; 85025

== ENCOUNTER → 2023-01-29 | Outpatient (CLI) | payer MEDICARE ==
[2023-01-29 10:43] LABS: African American GFR (CKD) 71 (>60 ml/min/1.73 sqM); Blood Urea Nitrogen 20 mg/dL (9-20); Non-African American GFR(CKD) 62 (>60 ml/min/1.73 sqM)
--- NOTE | 2023-01-29 11:49 | CT ---
EXAMINATION TYPE: CT abdomen wo con, CT chest abdomen w con CT DLP: 2145.4 mGycm, Automated exposure control for dose reduction was used. DATE OF EXAM: 01/29/2023 11:23 AM COMPARISON: CT 01/29/2023 CT 08/02/2022 CLINICAL INDICATION:Male, 67 years old with history of C64.2; h/o renal cyst and left nephrectomy f/u TECHNIQUE: Axial CT of the abdomen and pelvis. Sagittal and coronal reformats were created on a [employer] workstation. Contrast used:100 mL of Isovue 300 with IV Contrast, (none if empty) Oral contrast used: with Oral Contrast (none if empty) FINDINGS: LUNGS/ PLEURA: No new or enlarging pulmonary nodules. No focal consolidation, pneumothorax or pleural effusion. AIRWAY: Patent and unremarkable. HEART: Size within normal limits. MEDIASTINUM: No gross evidence of adenopathy. VASCULATURE: No aortic aneurysm. MUSCULOSKELETAL: No acute osseous abnormalities , unchanged appearance of lucency within the right in ferior scapula SOFT TISSUES/LYMPH NODES: Unremarkable. LOWER NECK: No significant findings. UPPER ABDOMEN: No significant findings. ABDOMEN LIVER: Unremarkable GALLBLADDER AND BILE DUCTS: Unremarkable. PANCREAS: Unremarkable. SPLEEN: Unremarkable. ADRENAL GLANDS: The left adrenal gland is not visualized and may be surgically absent. The right adre nal gland is unremarkable. KIDNEYS AND URETERS: Postsurgical change with left kidney surgically absent. The remaining soft tissu e within the posterior aspect of the surgical bed measuring 4.1 x 2.5 cm which is probably cystic. No significant enhancement. Multiple surgical clips are nearby this area. This extends along the eligio o f the diaphragm. Right renal cyst. No evidence of right calculus or obstructive uropathy. PELVIS BLADDER: Unremarkable REPRODUCTIVE: Unremarkable. ABDOMEN & PELVIS STOMACH AND BOWEL: No evidence of bowel obstruction. Scattered colonic diverticula. The appendix is n ormal. PERITONEUM/RETROPERITONEUM: No evidence of pneumoperitoneum or free fluid. VASCULATURE: No evidence of aortic aneurysm. MUSCULOSKELETAL: No acute osseous abnormalities, similar appearance to the right iliac bone periphera l sclerosis around a lucent area and more lucent area laterally on the right. Degeneration changes th roughout the spine. No suspicious lesions visualized. LYMPH NODES: No gross evidence for lymphadenopathy. SOFT TISSUE/ABDOMINAL WALL: Unremarkable IMPRESSION: 1. Interval postsurgical changes with area of cystic change in the surgical bed posteriorly ill-defi iman soft tissue density extending along the eligio of the diaphragm. Postcontrast imaging does not defi nitely demonstrate enhancement. No evidence for lymphadenopathy at this time. Continued surveillance recommended. Consideration for PET/CT may be of benefit for metabolic activity of the postsurgical ch aditya. 2. Unchanged appearance of right scapula inferior lucency.
== END | disposition home or self-care (01) ==
LOC: RADCTMAIN 09:56
PROVIDERS: ATTEND Urology
DX: C64.2 Malignant neoplasm of left kidney, except renal pelvis (principal); J98.4 Other disorders of lung
CPT/HCPCS: 82565; 84520; 71260; 74150; 74160; 36415; Q9967

== ENCOUNTER → 2023-02-09 | Outpatient (CLI) | payer MEDICARE ==
--- NOTE | 2023-02-10 18:01 | MR ---
EXAMINATION TYPE: MR Prostate wo/w con DATE OF EXAM: 02/09/2023 9:53 AM COMPARISON: CT 01/29/2023. CLINICAL INDICATION:Male, 67 years old with history of C61 MALIGNANT NEOPLASM OF PROSTATE; TECHNIQUE: Multi-planar, multi-sequence imaging of the pelvis is performed prior to and following the uncomplicated administration of bolus intravenous gadolinium. CONTRAST: 9.5 Gadavist Interpretive Criteria: PI-RADS v2.1 SERUM PSA: 7.3 on 01/14/2023 5.7 on 11/14/2022 SURGICAL PATHOLOGY: Positive biopsy 12/04/2021 involving the right lateral mid prostate gland 3+3 Shay 6 FINDINGS: Prostatic dimensions: 4.5 x 4.2 x 3.4 cm. "Bullet" Volume:42.06 (PSA density=0.17 ng/mL/mL) CENTRAL GLAND (Central and Transition Zones/CZ+TZ): Multiple bilateral, heterogenous appearing hypertrophic stromal nodules, without suspicious lesion. M edian lobe hypertrophy with protrusion into the base of the bladder. (PI-RADS 2) PERIPHERAL ZONE (PZ): Somewhat diffuse low-attenuation to the peripheral zone. There is an area of so mewhat ill-defined high DWI and low ADC signal within the right peripheral zone mid gland measuring 1 1 x 7 mm there is early arterial enhancement of this region. PI-RADS 4 SEMINAL VESICLES (SV): Symmetric and unremarkable. PERIPROSTATIC TISSUES: Unremarkable. LYMPH NODES: No enlarged pelvic lymph node. REMAINING PELVIS: Bladder wall is within normal limits given distention. No abnormal free or organized intrapelvic fluid collection. No pathologic bowel dilation or mural thickening. Fatty changes to the inguinal canals. OSSEOUS STRUCTURES: No suspicious osseous abnormality. IMPRESSION: 1. Right peripheral zone mid gland PI-RADS 4 lesion 11 x 7 mm. 2. Mild BPH, estimated gland volume 42 mL. 3. No suspicious osseous lesion. No lymphadenopathy. No evidence of prostate adenocarcinoma involving the periprostatic tissues.
== END | disposition home or self-care (01) ==
LOC: RADMRIMAIN 08:48
PROVIDERS: ATTEND Urology
DX: C61 Malignant neoplasm of prostate (principal); N40.0 Benign prostatic hyperplasia without lower urinary tract symptoms
CPT/HCPCS: 72197; A9585

== ENCOUNTER → 2023-07-22 | Outpatient (CLI) | payer MEDICARE ==
[2023-07-22 11:25] LABS: African American GFR (CKD) 79 (>60 ml/min/1.73 sqM); Blood Urea Nitrogen 22 mg/dL (9-20); Non-African American GFR(CKD) 69 (>60 ml/min/1.73 sqM)
--- NOTE | 2023-07-22 14:23 | CT ---
EXAMINATION TYPE: CT abdomen wo con DATE OF EXAM: 07/22/2023 COMPARISON: 07/22/2023 INDICATION: Renal Cancer DLP: 675 mGycm, Automated exposure control for dose reduction was used. CONTRAST: 0 mL of Isovue 300. Study performed with Oral Contrast TECHNIQUE: Axial images were obtained from above the diaphragm to the pubic rami in the axial plane a t 5 mm thick sections. Reconstructed images are reviewed on the computer in the coronal plane. FINDINGS: CT chest: Limited CT sections were obtained through the lung bases.. Lung bases appear clear CT ABDOMEN: CT ABDOMEN: Liver: Multiple hepatic cysts are present. Spleen: Normal Pancreas: Normal Adrenal glands: Left adrenal gland is not identified. Right adrenal gland appears normal Gallbladder: Normal Kidneys: Left kidney is surgically absent. Multiple surgical clips are within the left renal bed. No recurrent masses are identified. Right kidney appears normal without masses cysts or hydronephrosis n o renal stones are evident.. Aorta: Vascular calcification is within the aorta. Inferior vena cava: Normal. Limited CT PELVIS: Loops of bowel within the abdomen and pelvis are normal. Some diverticular changes are within the si gmoid colon. There are loops of bowel which are incompletely distended or lack oral contrast limiti ng their evaluation. Appendix: Normal as visualized. Lower portion of the pelvis is out of the field of view. IMPRESSION: 1. No suspicious changes to suggest recurrent or metastatic renal cancer.
== END | disposition home or self-care (01) ==
LOC: RADCTMAIN 10:19
PROVIDERS: ATTEND Urology
DX: C64.2 Malignant neoplasm of left kidney, except renal pelvis (principal)
CPT/HCPCS: 82565; 84520; 71260; 74150; 74160; 36415; Q9967

== ENCOUNTER → 2023-11-25 | Outpatient (CLI) | payer MEDICARE ==
[2023-11-26 13:44] LABS: Appearance,Urine Clear (Clear); Bilirubin,Urine Negative (Negative); Blood,Urine Negative (Negative); Color,Urine Yellow (Yellow); Ketones,Urine Negative (Negative); Nitrite,Urine Negative (Negative); Specific Gravity,Urine 1.018 (1.001-1.030); Urobilinogen,Urine 0.2 E.U./DL
== END | disposition home or self-care (01) ==
LOC: LABPAT 15:31
PROVIDERS: ATTEND Urology
DX: Z01.812 Encounter for preprocedural laboratory examination (principal); C61 Malignant neoplasm of prostate
CPT/HCPCS: 81003; 86850; 86900; 86901; 87086; 93005

== ENCOUNTER 2023-11-28 09:15 | Day surgery (SDC) | payer MEDICARE ==
--- NOTE | 2023-11-26 09:44 | P.HPIHPCON ---
History of Present Illness H&P Date: 11/26/23 Chief Complaint: Prostate cancer This is a 68-year-old male with a history of Shay 7(3+4) prostate cancer, initially diagnosed in March 2020 with a Shay 6 prostate cancer initially was on active surveillance, and repeat biopsy there is appears to be progression of his disease. At this point discussed with him option of a robotic radical prostatectomy, versus radiation therapy versus continued surveillance. Risk benefit and rationale of each approach was discussed with him in detail. He agreed to proceed with a robotic radical prostatectomy with possible bilateral pelvic lymph node dissection. Aware the risk which includes but not limited to bleeding, infection, erectile dysfunction, urinary incontinence, injury to nearby organs which includes but not limited to bladder, the rectum, bowel. Risk of anesthesia was also discussed with him in detail. He understood all the risk and agreed to proceed Consent for Procedure: I have explained the operation/procedure to the patient, including the risks, benefits, side effects, alternative therapies (including not receiving the proposed treatment or service), the likelihood of the patient achieving his/her goals, and potential recuperation problems for the procedure/sedation/analgesia, as well as any blood products, if indicated. I also explained to the patient the risks, benefits and side effects of the alternatives, as well as the risks related to not receiving the proposed procedure, care, treatment, or services. Past Medical History Past Medical History: Cancer, Hyperlipidemia, Hypertension, Osteoarthritis (OA), Skin Disorder Additional Past Medical History / Comment(s): , ddd, BULGING DISC,BENIGN COLON POLYP, COLITIS WHEN YOUNGER, + prostate bx. increased in size recently. skin cancer - removed from arm ,ramirez and foot. History of Any Multi-Drug Resistant Organisms: None Reported Past Surgical History: Hernia Repair, Joint Replacement, Orthopedic Surgery Additional Past Surgical History / Comment(s): 3 right and 3left shoulder surgeries. rt shoulder replaced. EGD/COLONOSCOPY, 3 SX LT ANKLE-PLATE AND SCRE W, 2ND SX TO REMOVED HEARD WEAR, 3RD SX FOR NEUROMA. HEMORRHOIDS, FISTUAL REPAIR shoulder left nephrectomy, yoel cataracts, prostate bx Past Anesthesia/Blood Transfusion Reactions: No Reported Reaction Additional Past Anesthesia/Blood Transfusion Reaction / Comment(s): no hx blood transfusion Smoking Status: Current every day smoker - Past Family History Father Family Medical History: Cancer Additional Family Medical History / Comment(s): prostate CA Mother History Unknown: Yes Family Medical History: Cancer Additional Family Medical History / Comment(s): lung CA- 1972 Medications and Allergies Home Medications Medication Instructions Recorded Confirmed Type ALPRAZolam [Xanax] 1 mg PO TID PRN 02/29/16 11/25/23 History atenoloL [Tenormin] 75 mg PO BID 02/29/16 11/25/23 History Atorvastatin Calcium [Lipitor] 10 mg PO HS 06/18/21 11/25/23 History Unk Multi Vitamin 1 tab PO DAILY 11/25/23 11/25/23 History Allergies Allergy/AdvReac Type Severity Reaction Status Date / Time No Known Allergies Allergy Verified 11/25/23 13:47 Surgical - Exam - General no distress, no pain - Eyes normal ocular movement, no pale - ENT normal nares, normal mucosa - Respiratory normal expansion, normal respiratory effort - Abdomen Abdomen: soft, non tender Assessment and Plan Assessment: OR for robotic radical prostatectomy, with possible pelvic lymph node dissection
[~2023-11-28 09:15] MED LIST: HYDROmorphone 0.5 MG/0.5 ML SYRINGE IVP PRN
[2023-11-28] MEDS: LACTATED RINGERS 1,000 ML IV SCH (10:00)
[2023-11-28] MEDS: LACTATED RINGERS 1,000 ML IV ONE (10:00)
[2023-11-28] MEDS: ONDANSETRON 4 MG/2 ML VIAL IVP ONE (10:02)
[2023-11-28] MEDS: DEXAMETHASONE SOD PHOSPHATE 4 MG/ML 1 ML VIAL IV ONE (10:02)
[2023-11-28] MEDS: MIDAZOLAM 2 MG/2 ML VIAL IVP ONE (10:06)
[2023-11-28] MEDS ORDERED: ALPRAZolam 1 MG TAB PO PRN (10:19)
[2023-11-28] MEDS ORDERED: ONDANSETRON 4 MG/2 ML VIAL IVP PRN (10:20)
[2023-11-28] MEDS ORDERED: NEOSTIGMINE 1 MG/ML 10 ML VIAL ONE (10:27)
[2023-11-28] MEDS ORDERED: SUCCINYLCHOLINE CHLORIDE 200 MG/10 ML VIAL IV ONE (10:27)
[2023-11-28] MEDS ORDERED: ROCURONIUM 10 MG/ML (5 ML VIAL) IV ONE (10:27)
[2023-11-28] MEDS ORDERED: ROPIVACAINE 5 MG/ML 30 ML VIAL ONE (10:27)
[2023-11-28] MEDS ORDERED: fentaNYL (PF) 50 MCG/ML 2 ML AMP ONE (10:27)
[2023-11-28] MEDS ORDERED: LIDOCAINE 1% INJ 10MG/ML (20 ML MDV) ONE (10:27)
[2023-11-28] MEDS ORDERED: KETAMINE HCL IN 0.9 % NACL 50 MG/5 ML SYRINGE ONE (10:27)
[2023-11-28] MEDS ORDERED: DEXAMETHASONE SOD PHOSPHATE 4 MG/ML 1 ML VIAL ONE (10:27)
[2023-11-28] MEDS ORDERED: HYDROmorphone (PF) 1 MG/ML ONE (10:27)
[2023-11-28] MEDS ORDERED: GLYCOPYRROLATE 0.2 MG/ML 2 ML VIAL ONE (10:27)
[2023-11-28] MEDS ORDERED: PROPOFOL 10 MG/ML 20 ML VIAL IV ONE (10:27)
[2023-11-28] MEDS: HEPARIN SODIUM,PORCINE 5,000 UNIT/ML 1 ML VIAL SQ PRN (10:27)
[2023-11-28] MEDS ORDERED: SUGAMMADEX SODIUM 200 MG/2 ML SDV IV ONE (10:27)
[2023-11-28] MEDS ORDERED: MIDAZOLAM 2 MG/2 ML VIAL ONE (10:27)
[2023-11-28] MEDS ORDERED: ALBUTEROL HFA INHALER INHALATION ONE (10:27)
--- NOTE | 2023-11-28 10:28 | P.ANPRN ---
Procedure Note - Anesthesia - Nerve Block Performed Bilateral Erector Spinae Single Time Out Performed: Yes Date of Procedure: 11/28/23 Procedure Start Time: :06 Procedure Stop Time: :14 Location of Patient: PreOp Indication: Acute Post-Operative Pain, Analgesia, Requested by Surgeon Sedation Type: Sedate with meaningful contact maintained Preparation: Sterile Prep Position: Prone Catheter: None Needle Types: Pajunk Needle Gauge: 21 Ultrasound used to visualize needle placement: Yes Ultrasound used to observe medication spread: Yes Injectate: 0.5% Ropivacaine (see comment for volume) (Ripiv 20ml + decadron 4mg-----Each side. Positive ultrasound visualisation of transverse process and pleura. T-11 level) Blood Aspirated: No Pain Paresthesia on Injection Noted: No Resistance on Injection: Normal Image Stored and Saved: Yes Events: Uneventful and Well Tolerated
[2023-11-28] MEDS: BUPIVACAINE (PF) 0.25% 30 ML VIAL SQ ONE (10:32)
[2023-11-28] MEDS: GENTAMICIN 40 MG/ML 2 ML VIAL IVPB ONE (14:10)
[2023-11-28] MEDS: ceFAZolin 1,000 MG VIAL IVPB ONE (14:30)
--- NOTE | 2023-11-28 15:45 | P.OP ---
Date of Procedure: 11/28/23 Preoperative Diagnosis: prostate cancer Postoperative Diagnosis: same Procedure(s) Performed: robotic assisted laproscopic radical prostatectomy, and bilateral pelvic lymph node dissection Implants: None Anesthesia: ABDIAS Surgeon: Dustin Guevara Estimated Blood Loss (ml): 200 Pathology: other (Prostate, bilateral seminal vesicle, bilateral pelvic lymph nodes, left apical margin) Condition: stable Disposition: PACU Indications for Procedure: This is a 68-year-old male with a history of Lewis 7(3+4) prostate cancer, initially diagnosed in March 2020 with a Shay 6 prostate cancer initially was on active surveillance, and repeat biopsy there is appears to be progression of his disease. At this point discussed with him option of a robotic radical prostatectomy, versus radiation therapy versus continued surveillance. Risk benefit and rationale of each approach was discussed with him in detail. He agreed to proceed with a robotic radical prostatectomy with possible bilateral pelvic lymph node dissection. Aware the risk which includes but not limited to bleeding, infection, erectile dysfunction, urinary incontinence, injury to nearby organs which includes but not limited to bladder, the rectum, bowel. Risk of anesthesia was also discussed with him in detail. He understood all the risk and agreed to proceed Operative Findings: Prostate fairly friable , fairly adherent along the apex bilaterally. Description of Procedure: After preoperative antibiotics were started, the patient was taken to the operating room. Anesthesia was induced and the patient was placed in a low li thitomy position, with adequate padding of the pressure points, shoulders, back, legs and arms. He was then prepped and draped in the standard fashion. A critical pause was performed using two patient identifiers. A 16F young catheter was placed to gravity drainage. A pneumo-peritoneum was created with placement of a Veress needle to 20 mm Hg without complication, and a 8 Fr trocar was placed above the umbillicus. Under direct vision a 8mm robotic ports was placed lateral to each rectus slightly below the camera port. The left iliac fossa 8mm port was placed. The right retirement assistant right iliac fossa 12mm port and right paramedian 5mm portwere placed. After the patient was placed in the trendelenberg position, the robot was then docked to the 8mm robotic ports and then each robotic arm and tower was checked in relation to the patient's legs and hands to avoid inadvertent compression. The peritoneal cavity was inspected. Patient had adhesions along the left side involving the sigmoid which was taken down sharply An inverted U-shaped incision began laterally to the left medial umbilical ligament and extended high across the midline to the right umbilical ligament. The limbs of the "U" extended to the level of the vasa on both sides. We next developed the preperitoneal space and the space of Retzius. Cautery was used to dissected the bladder away from the prostate. After the anterior bladder neck was incised and the bladder entered the the posterior bladder neck was exposed and the ureteral orifces identified. The posterior bladder neck was then incised and dissected away from the prostate. The vas and the seminal vesicles were now exposed and dissected to their insertions into the prostate and were not spared. The posterior layer of the Denonvillier's fascia was incised to enter sonny the plane between prostate and perirectal fat. Each lateral pedicle was controlled with clips and cautery for hemostasis. Partial nerve preservation was performed bilaterally. Of note along the level apex the prostate was fairly adherent and there was no clear surgical plane, additionally the entire surface of the prostate was extremely friable, which made mobilizing the prostate very challenging. I was able to sweep the prostate off of the rectum using minimal cautery, there was no evidence of rectal injury. Dissection was carried down all the way down to the urethra the puboprostatic ligament was incised where it inserted into the apex of the prostate and a plane between urethra and dorsal venous complex developed to expose the anterior urethral surface. After incising the dorsal vein ligating it using 3 oh V-Loc. At this time I attempted to identify the plane between the prostate and the urethra but the tissue was fairly inflamed in his urine, upon sweeping the prostatic tissue off of the urethra purulent drainage was noticed along the anterior surface of the prostate that was irrigated out. At this point the plane was identified posteriorly between the prostate and the urethra and dissection was carried down all the way into the anterior surface. The anterior wall of the urethra was transected with the cut setting a few millimeters distal to the apex of the prostate. T bilateral obturator and external iliac lymph node packets were carefully dissected after careful visualization of the hypogastric artery and obturator nerve. There was careful attention paid to hemostasis with judicious use of cautery. The urethrovesical anastomosis was performed . the posterior denovillers was reapproximated using 3-0 V lock. A 6 and 6 inch 3-0 V-Lock suture was used to anastomose the urethra and bladder, starting at the 6:00 posterior position. Mucosa was secured in every stitch, to ensure a mucosa to mucosa anastomosis. The stitch was regularly cinched and the anastomosis tightened. Care was taken to not violate the ureteral orifices. The Young catheter was advanced, the bladder filled, and the anastomosis was tested, as described above. Anastomsis was watertight at 200 mL The periumbilical fascia was closed with 1-0-PDS suture in [id number] fashion All ports were closed with a subcuticular 4-0 monocryl and Dermabond. Sponge, instrument, and needle counts were correct at the end of the case x2. All specimens including prostate and lymph nodes were sent to pathology for diagnosis and will be available in a week. The patient tolerated the surgery well and without complication. He awoke without difficulty and was taken to the recovery room in stable condition
[2023-11-28] MEDS: IV FLUID CONTINUATION 1,000 ML IV ONE (15:56)
[2023-11-28] MEDS: KETOROLAC 15 MG/ML 1 ML VIAL IVP SCH (17:39)
[2023-11-28] MEDS: D5-0.45% NACL WITH KCL 20MEQ/L 1,000 ML IV SCH (18:14)
[2023-11-28] MEDS: HEPARIN SODIUM,PORCINE 5,000 UNIT/ML 1 ML VIAL SQ SCH ×2 (18:35→23:57)
[2023-11-28] MEDS: HYDROmorphone 1 MG/ML 1 ML SYRINGE IVP PRN (20:52)
[2023-11-28] MEDS: ATORVASTATIN 10 MG TAB PO SCH (20:54)
[2023-11-28] MEDS: atenoloL 50 MG TAB PO SCH (20:54)
[2023-11-29] MEDS ORDERED: HYDROcodone/APAP 5-325MG 1 EACH TAB PO PRN (08:13)
[2023-11-29 08:28] VITALS: BP 119/78; PULSE 67; RESP 18; TEMP 98.1
--- NOTE | 2023-11-29 13:59 | P.DS ---
Providers Attending physician: Dustin Guevara MD Primary care physician: [facility] Course: This is a 68-year-old male with history of prostate cancer, underwent robotic radical prostatectomy on November 27. Please see op note dated November 27 for surgery details. Patient was admitted to the hospital postoperatively. He was discharged home on postop day #1 with young catheter . At time of discharge he was tolerating a diet, ambulating, and pain was controlled Plan - Discharge Summary Discharge Rx Participant: Yes New Discharge Prescriptions: New Sulfamethox-Tmp 800-160Mg [Bactrim DS 800-160 mg] 1 tab PO Q12HR #20 tab methocarbamoL [Robaxin-750] 750 mg PO QID #20 tab HYDROcodone/APAP 5-325MG [Deale 5-325] 1 tab PO Q6HR PRN 3 Days #12 tab PRN Reason: Pain No Action atenoloL [Tenormin] 75 mg PO BID ALPRAZolam [Xanax] 1 mg PO TID PRN PRN Reason: Anxiety Atorvastatin Calcium [Lipitor] 10 mg PO HS Unk Multi Vitamin 1 tab PO DAILY Discharge Medication List ALPRAZolam [Xanax] 1 mg PO TID PRN 02/29/16 [History] atenoloL [Tenormin] 75 mg PO BID 02/29/16 [History] Atorvastatin Calcium [Lipitor] 10 mg PO HS 06/18/21 [History] Unk Multi Vitamin 1 tab PO DAILY 11/25/23 [History] HYDROcodone/APAP 5-325MG [Deale 5-325] 1 tab PO Q6HR PRN 3 Days #12 tab 11/29/23 [Rx] Sulfamethox-Tmp 800-160Mg [Bactrim DS 800-160 mg] 1 tab PO Q12HR #20 tab 11/29/23 [Rx] methocarbamoL [Robaxin-750] 750 mg PO QID #20 tab 11/29/23 [Rx] Patient Instructions/Handouts: Young Catheter Placement and Care (DC)
== END 2023-11-29 14:47 | disposition home or self-care (01) ==
LOC: OR 09:15 → 4SSUR 16:18 → OR 11-29 14:47
PROVIDERS: ATTEND Urology
DX: C61 Malignant neoplasm of prostate (principal); G89.18 Other acute postprocedural pain; I10 Essential (primary) hypertension; E78.5 Hyperlipidemia, unspecified; F17.200 Nicotine dependence, unspecified, uncomplicated; M19.90 Unspecified osteoarthritis, unspecified site; Z85.828 Personal history of other malignant neoplasm of skin; Z98.890 Other specified postprocedural states; Z80.1 Family history of malignant neoplasm of trachea, bronchus and lung; Z79.899 Other long term (current) drug therapy
CPT/HCPCS: 38571; 55866; S2900; 64999; 88305; 88307; 88309

== ENCOUNTER → 2024-01-27 | Outpatient (CLI) | payer MEDICARE ==
[2024-01-27 08:42] LABS: African American GFR (CKD) 83 (>60 ml/min/1.73 sqM); Blood Urea Nitrogen 21 mg/dL (9-20); Non-African American GFR(CKD) 72 (>60 ml/min/1.73 sqM)
--- NOTE | 2024-01-27 09:08 | XR ---
EXAMINATION TYPE: XR chest 2V DATE OF EXAM: 01/27/2024 COMPARISON: 06/18/2021 INDICATION: Renal cancer TECHNIQUE: Frontal and lateral views of the chest are obtained. FINDINGS: The heart size is normal. The pulmonary vasculature is normal. The lungs are clear. Right shoulder prosthesis is evident. There is resorption or resection of the d istal right clavicle Osseous structures appear intact. IMPRESSION: 1. No acute pulmonary process.
--- NOTE | 2024-01-27 10:38 | CT ---
EXAMINATION TYPE: CT abdomen wo/w con CT DLP: 2256.9 mGycm, Automated exposure control for dose reduction was used. DATE OF EXAM: 01/27/2024 9:09 AM COMPARISON: 07/22/2023 CLINICAL INDICATION:Male, 68 years old with history of C64.2 renal ca; f/u left renal cancer TECHNIQUE: Axial CT abdomen wo/w con;Sagittal and coronal reformats were created on a separate works tation. Contrast used:100 mL of Isovue 300 without and with IV Contrast, (none if empty) Oral contrast used: with Oral Contrast (none if empty) FINDINGS: LOWER CHEST: Unremarkable ABDOMEN LIVER: Scattered hypoattenuating lesions throughout the liver likely representing cysts. GALLBLADDER AND BILE DUCTS: Unremarkable. PANCREAS: Unremarkable. SPLEEN: Unremarkable. ADRENAL GLANDS: Unremarkable. KIDNEYS AND URETERS: The left kidney is surgically absent. No suspicious soft tissue surgical bed. Ri ght renal cyst. No evidence of hydronephrosis or renal calculus. The ureters are unremarkable. PELVIS BLADDER: Unremarkable REPRODUCTIVE: Unremarkable. ABDOMEN & PELVIS STOMACH AND BOWEL: No evidence of bowel obstruction. PERITONEUM/RETROPERITONEUM: No evidence of pneumoperitoneum or free fluid. VASCULATURE: No evidence of aortic aneurysm. MUSCULOSKELETAL: No acute osseous abnormalities LYMPH NODES: No gross evidence for lymphadenopathy. SOFT TISSUE/ABDOMINAL WALL: Unremarkable IMPRESSION: 1. Post left nephrectomy changes without evidence for recurrent mass. No lymphadenopathy. 2. Scattered simple appearing probable hepatic cysts.
== END | disposition home or self-care (01) ==
LOC: RADCTMAIN 07:53
PROVIDERS: ATTEND Urology
DX: C64.2 Malignant neoplasm of left kidney, except renal pelvis (principal); Z90.5 Acquired absence of kidney
CPT/HCPCS: 82565; 84520; 71046; 74170; 36415; Q9967

== ENCOUNTER → 2025-02-10 | Outpatient (CLI) | payer MEDICARE ==
[2025-02-10 09:52] LABS: African American GFR (CKD) 86 (>60 ml/min/1.73 sqM); Blood Urea Nitrogen 17 mg/dL (9-20); Non-African American GFR(CKD) 75 (>60 ml/min/1.73 sqM)
--- NOTE | 2025-02-10 10:49 | CT ---
EXAMINATION TYPE: CT chest w con DATE OF EXAM: 02/10/2025 10:25 AM COMPARISON: 07/22/2023 CLINICAL INDICATION: Male, 69 years old with history of C64.2 renal ca, CHECK UP ON PREVIOUS KIDNEY C ERROL, TECHNIQUE: CT scan of the chest is performed with IV Contrast, patient injected with 100 ml mL of Iso gabby 300. CT DLP: 3567.40 mGycm, Automated exposure control for dose reduction was used. FINDINGS: LUNGS: The lungs are grossly clear, there is no concerning parenchymal mass or nodule identified. T here is no pleural effusion or pneumothorax seen. The tracheobronchial tree is patent. MEDIASTINUM: There are no greater than 1 cm hilar or mediastinal lymph nodes. No pericardial effusi on is seen. Thoracic aorta is of normal caliber. HEART: Size within normal limits. No significant coronary artery calcifications. UPPER ABDOMEN: No significant abnormality appreciated. OTHER: No additional significant abnormality is seen. IMPRESSION: No evidence for metastatic disease to the chest. [facility], , 02/10/2025 10:46 AM
--- NOTE | 2025-02-10 11:07 | CT ---
D: EXAMINATION TYPE: CT abdomen wo/w con DATE OF EXAM: 02/10/2025 10:26 AM COMPARISON: 01/27/2024 CLINICAL INDICATION: Male, 69 years old with history of C64.2 renal ca, CHECK UP ON PREVIOUS KIDNEY C ANCER TECHNIQUE:CT scan of the abdomen is performed with Oral Contrast and without and with IV Contrast, pa tient injected with 100 ml mL of Isovue 300. CT DLP: 3567.40 mGycm, Automated exposure control for dose reduction was used. FINDINGS: LUNG BASES-: No visible nodule. No infiltrate. LIVER/GB: No calcified gallstones. Scattered renal cystic changes. Biliary tree is of normal calibe r. PANCREAS: No inflammation. No distinct mass. SPLEEN: No splenic enlargement. No lesion seen. ADRENALS: No nodule. No thickening. KIDNEYS/BLADDER: Left-sided nephrectomy changes with normal-appearing renal fossa. No recurrent soft tissue mass seen. No hydronephrosis. No nephrolithiasis. No solid distinct renal mass. Small cysti c lesion mid to lower pole left kidney measures 1.3 cm. Urinary bladder grossly unremarkable. BOWEL: Normal appendix. Normal bowel caliber. No inflammation. LYMPH NODES: No greater than 1cm abdominal or pelvic lymph nodes are appreciated. AORTA: No significant abnormality. OSSEOUS STRUCTURES: No significant abnormality is seen. OTHER: No significant additional abnormality is seen. IMPRESSION: 1. No evidence for recurrent disease or metastatic disease. [facility], , 02/10/2025 11:04 AM
== END | disposition home or self-care (01) ==
LOC: RADCTMAIN 08:53
PROVIDERS: ATTEND Urology
DX: C64.2 Malignant neoplasm of left kidney, except renal pelvis (principal); Z85.528 Personal history of other malignant neoplasm of kidney
CPT/HCPCS: 82565; 84520; 71260; 74170; 36415; Q9967